=== PATIENT | male | born 1960 | race Two or more races ===

== ENCOUNTER 2022-03-30 00:06 | Inpatient (IN) | payer MEDICAID ==
[~2022-03-30] VITALS: Ht 170.2 cm; Wt 79.4 kg
--- NOTE | 2022-03-30 00:15 | NUR ---
RT NOTE PT BROUGHT IN BY FIRE DEPT FOR SOB. PT TRACH'D VIA SIZE 8 PORTEX CUFFED TRACH. PT PLACED ON [facility] VENT ON GIVEN SETTINGS. AC 16, 450, 50% +5. PT SX'D. NO RESP DISTRESS NOTED @ THIS TIME. Addendum: 03/30/22 at 0509 by NAWAF TYSON RT Amended: Links added.
[2022-03-30] MEDS ORDERED: IV NS 0.9% 1,000 ML BAG IV ONE (00:30)
--- NOTE | 2022-03-30 00:32 | NUR ---
TABBY FROM SNF TO ER BED 8. NON VERBAL, LORETTA DEPENDENT. NOT IS RESP DISTRESS. BROUGHT ON FOR LOW BP. REPORT REPORT, PT WAS NOTED WITH BP AT THE SNF OG 50/30. PT WAS REPORTED TO AHVE BEEN NOT DOING WELL. WHEN THE BP WAS NOTED GOING DOWN AN HOUR PRIOR TO ARRIVAL. PARAMEDICS GACE THE PATIENT A BOLUS OF 500MS AND EPI 0.1 MG IVP. MD WAS AT THE BEDSIDE FOR EVAL. ORDERS RECEIVED, NOTED AND CARRIED OUT
--- NOTE | 2022-03-30 01:04 | NUR ---
PATIENT TAKEN TO CT
--- NOTE | 2022-03-30 01:21 | NUR ---
PATIENT RETURNED FROM CT
[2022-03-30 01:26] LABS: BASOPHILS # (AUTO) 0.1 K/uL (0.0-0.2); BASOPHILS % (AUTO) 0.3 % (0.0-2.0); EOSINOPHILS % (AUTO) 0.1 % (0.0-6.0); HEMATOCRIT 28 % (39-51); LYMPHOCYTES # (AUTO) 1.7 K/uL (0.8-4.8); LYMPHOCYTES % (AUTO) 6.3 % (20.0-44.0); MEAN CORPUSCULAR HGB CONC 33 g/dl (31.0-36.0); MEAN CORPUSCULAR VOLUME 97 fL (80-96); MONOCYTES # (AUTO) 2.1 K/uL (0.1-1.30); MONOCYTES % (AUTO) 7.7 % (2.0-12.0); NEUTROPHILS # (AUTO) 23.3 K/uL (1.8-8.9); NEUTROPHILS % (AUTO) 85.6 % (43.0-81.0); PLATELET COUNT (AUTO) 391 K/uL (150-450); RED BLOOD CELL COUNT(AUTO) 2.88 MIL/uL (4.5-6.0); WHITE BLOOD COUNT (AUTO) 27.2 K/uL (4.3-11.0)
[2022-03-30 01:37] LABS: CALCIUM, SERUM 9.3 mg/dL (8.5-10.1); CARBON DIOXIDE 27 mmol/L (21-32); CHLORIDE 101 mmol/L (98-107); GLUCOSE 138 mg/dL (74-106); POTASSIUM 4.5 mmol/L (3.5-5.1); SODIUM SERUM 138 mmol/L (136-145); UREA NITROGEN, BLOOD 52 mg/dL (7-18)
[2022-03-30 01:44] LABS: ALANINE AMINOTRANSFERASE 53 U/L (12-78); ALBUMIN 2.7 g/dL (3.4-5.0); ALKALINE PHOSPHATASE 86 U/L (46-116); ASPARTATE AMINOTRANSFERASE 38 U/L (15-37); BILIRUBIN,DIRECT 0.2 mg/dL (0.0-0.2); BILIRUBIN,TOTAL 0.7 mg/dL (0.2-1.0); TOTAL PROTEIN, SERUM 7.5 g/dL (6.4-8.2)
[2022-03-30] MEDS ORDERED: ACETAMINOPHEN 650 MG/20.3 ML UDC ONE (01:50)
[2022-03-30] MEDS ORDERED: ACETAMINOPHEN ES 500 MG TABLET ONE (01:53)
[2022-03-30] MEDS ORDERED: ACETAMINOPHEN ES 500 MG TABLET GT ONE (02:00)
[2022-03-30] MEDS ORDERED: Z GUARD REMEDY 4 OZ OINT TP PRN (02:30)
[2022-03-30] MEDS ORDERED: ONDANSETRON HCL/PF 4 MG/2 ML VIAL IVP PRN (02:30)
[2022-03-30] MEDS ORDERED: DEXTROSE 50%-WATER 50 ML DISP.SYRIN IV PRN (02:30)
[2022-03-30] MEDS ORDERED: ACETAMINOPHEN 650 MG/SUPP.RECT RC PRN (02:30)
[2022-03-30] MEDS: IV LR 1000 ML 1,000 ML IV PRN (02:48)
[2022-03-30] MEDS ORDERED: CEFEPIME 1 GM in IV D5W 50 ML IV ONE (03:30)
[2022-03-30] MEDS ORDERED: ZOSYN IVPB 3.375 G in IV D5W 50ml IV ONE (03:30)
[2022-03-30] MEDS ORDERED: VANCOMYCIN 1 GM in IV D5W 250 ML IV ONE (03:30)
[2022-03-30] MEDS ORDERED: VANCOMYCIN 1.75 GM in IV D5W 500 ML IV ONE (03:30)
[2022-03-30] MEDS ORDERED: VANCOMYCIN 1 GM VIAL ONE (03:34)
[2022-03-30] MEDS ORDERED: CEFEPIME 1 GM VIAL ONE (03:34)
[2022-03-30 04:41] LABS: BILIRUBIN,URINE SMALL (NEGATIVE); LEUKOCYTE ESTERASE ,URINE LARGE (NEGATIVE); NITRITE, URINE POSITIVE (NEGATIVE); PROTEIN,URINE >=300 mg/dl (NEGATIVE); UGLUCOSE NEGATIVE (NEGATIVE); UROBILINOGEN,URINE 0.2 EU/dL (0.2)
[2022-03-30 04:42] LABS: COLOR,URINE RED (YELLOW)
[2022-03-30] MEDS ORDERED: PIPERACILLIN /TAZOBACTAM 3.375 G VIAL IV ONE (05:47)
[2022-03-30 06:02] LABS: BASOPHILS # (AUTO) 0.1 K/uL (0.0-0.2); BASOPHILS % (AUTO) 0.2 % (0.0-2.0); EOSINOPHILS % (AUTO) 0.1 % (0.0-6.0); HEMATOCRIT 27 % (39-51); HEMOGLOBIN 8.5 g/dL (13.5-17.5); LYMPHOCYTES # (AUTO) 1.9 K/uL (0.8-4.8); LYMPHOCYTES % (AUTO) 5.4 % (20.0-44.0); MEAN CORPUSCULAR HGB CONC 32 g/dl (31.0-36.0); MEAN CORPUSCULAR VOLUME 98 fL (80-96); MONOCYTES # (AUTO) 1.9 K/uL (0.1-1.30); MONOCYTES % (AUTO) 5.4 % (2.0-12.0); NEUTROPHILS # (AUTO) 30.9 K/uL (1.8-8.9); NEUTROPHILS % (AUTO) 88.9 % (43.0-81.0); PLATELET COUNT (AUTO) 302 K/uL (150-450); RED BLOOD CELL COUNT(AUTO) 2.73 MIL/uL (4.5-6.0)
[2022-03-30 06:16] LABS: WHITE BLOOD COUNT (AUTO) 34.7 K/uL (4.3-11.0)
[2022-03-30 06:37] LABS: CALCIUM, SERUM 8.6 mg/dL (8.5-10.1); MAGNESIUM 2.2 mg/dL (1.8-2.4); POTASSIUM 4.3 mmol/L (3.5-5.1)
[2022-03-30] MEDS: BLOOD SUGAR DIAGNOSTIC 1 EACH STRIP IN SCH ×4 (06:44→23:48)
[2022-03-30 07:15] LABS: BACTERIA,URINE Many /HPF (None Seen); RBC,URINE TOO NUMEROUS TO COUN /HPF (0-2); SQUAMOUS EPITHELIAL CELL,UR Rare /HPF (None Seen); WBC,URINE TOO NUMEROUS TO COUN /HPF (0-3)
[2022-03-30 07:25] LABS: LYMPHOCYTES % (MANUAL) 7 % (16-48); MONOCYTES % (MANUAL) 6 % (0-11.0); NEUTROPHILS % (MANUAL) 87 (42-76)
--- NOTE | 2022-03-30 07:37 | NUR ---
going to 112.2
[2022-03-30 08:00] VITALS: BP 94/65
--- NOTE | 2022-03-30 08:00 | NUR ---
RT Patient received on vent: AC 16 450 40% +5. Transported to [facility] room #115. Trach secure and patent. Suction tolerated well. Ambu bag and back up trach at bedside. Vent plugged into red outlet. Alarms on and audible. No SOB or respiratory distress noted at this time.
--- NOTE | 2022-03-30 08:04 | NUR ---
REPORT GIVEN TO ANAYELI CHARGE NURSE. AWAITING TRANSFER TO FLOOR.
[2022-03-30] MEDS ORDERED: IPRA4AER IH ×2 (08:51)
[2022-03-30] MEDS ORDERED: INSU100V30 SQ (08:51)
[2022-03-30] MEDS ORDERED: NA P133E RC (08:51)
[2022-03-30] MEDS ORDERED: ACET-868 GT (08:51)
[2022-03-30] MEDS ORDERED: MAGN400O6 GT (08:51)
[2022-03-30] MEDS ORDERED: ACET-2605 GT (08:51)
[2022-03-30] MEDS ORDERED: LABE100T5 GT (08:51)
[2022-03-30] MEDS ORDERED: NUT.237L31 GT (08:51)
[2022-03-30] MEDS ORDERED: LEVE500T9 GT (08:51)
[2022-03-30] MEDS ORDERED: INSU100V7 SQ (08:51)
[2022-03-30] MEDS ORDERED: CLON0.1T GT (08:51)
[2022-03-30] MEDS ORDERED: FOLI0.8T23 GT (08:51)
[2022-03-30] MEDS ORDERED: BISA10SU11 RC (08:51)
[2022-03-30] MEDS ORDERED: HYDR100T27 GT (08:51)
[2022-03-30] MEDS ORDERED: ATOR40TA GT (08:51)
[2022-03-30] MEDS ORDERED: CHLO473M5 MM (08:51)
[2022-03-30] MEDS: PANTOPRAZOLE 40 MG/PACK PACK GT SCH (10:06)
[2022-03-30] MEDS: HEPARIN SODIUM, PORCINE 5000 UNITS/1 ML VIAL SQ SCH ×2 (10:07→21:18)
[2022-03-30] MEDS ORDERED: IV NS 0.9% 1,000 ML IV STA ×2 (11:30→18:17)
[2022-03-30 12:00] VITALS: BP 94/65
[2022-03-30] MEDS: PIPERACILLIN /TAZOBACTAM 3.375 G in IV D5W 100 ML IV SCH ×2 (13:31→20:05)
[2022-03-30 16:20] VITALS: BP_SYST 110; BP_SYST 94; BP_DIAS 65; BP_DIAS 68
--- NOTE | 2022-03-30 17:59 | NUR ---
PATIENT FOUND WITH TRACH INTACT ON THE VENT. PATIENT REMAIN STABLE W/O DISTRESS. BACK UP TRACH AND PULSE OXIMETER BY THE BEDSIDE. Addendum: 03/30/22 at 1802 by JAE WALKER RT Amended: Links added.
[2022-03-30] MEDS ORDERED: Medication Not On Formulary EA (Ipratropium/Albuterol Sulfate (Combivent Respimat 20-100 IH PRN (18:30)
[2022-03-30] MEDS ORDERED: GLUCERNA 1.5 1,000 ML BOTTLE GT SCH (18:30)
[2022-03-30] MEDS ORDERED: GLUCERNA 1.5 1,000 ML BOTTLE NG PRN (18:30)
[2022-03-30] MEDS ORDERED: BISACODYL SUPP (10 MG) 10 MG/SUPP.RECT SUPP.RECT RC PRN (18:30)
--- NOTE | 2022-03-30 19:15 | NUR ---
RN OPENING NOTES RECEIVED PATIENT ON BED, OBTUNDED, NON VERBAL. ON MECHANICAL VENTILATION WITH SETTINGS AC-16, TIDAL VOLUME-450. FIO2-40%, PEEP-5 SATING AT 100%. RESPIRATORY EVEN AND UNLABORED, NO SOB NOTED. NOTED WITH TEMPERATURE 100.0 F DEGREES, COOLING MEASURE PROVIDED, ACETAMINOPHEN 650MG VIA GT GIVEN. NO S/S OF DISTRESS NOTED. PATIENT LAC#20 AND RAC #18 PERIPHERAL LINE, FLUSHED WITH NS, NO S/S OF INFILTRATION NOTED AT SITE. WITH ONGOING BOLUS OF NS, TOLERATED WELL, WITH IVF OF LR @ 100ML/HR. DANIEL CATHETER DRAINING WITH CLOUDY YELLOW URINE OUTPUT VIA GRAVITY. ALL SAFETY MEASURE PROVIDED. BED IN LOWEST POSITION, LOCKED. BED ALARM ARMED. CONTINUE TO MONITOR.
[2022-03-30 20:00] VITALS: BP 92/53
[2022-03-30] MEDS ORDERED: ALBUTEROL FS 2.5 MG/0.5 ML VIAL.NEB NEB PRN (20:00)
[2022-03-30] MEDS ORDERED: IPRATROPIUM NEB FS 0.5 MG/2.5 ML AMPUL.NEB IH PRN (20:00)
--- NOTE | 2022-03-30 20:30 | NUR ---
Patient received on vent: AC 16 450 40% +5. Trach secure and patent. Suction tolerated well. Ambu bag and back up trach at bedside. Vent plugged into red outlet. Alarms on and audible. SLIGHT RESP DISTRESS WITH 30 RR. HR 124. SPO2 100%. Addendum: 03/30/22 at 2030 by Rony Barba RT Amended: Links added.
[2022-03-30] MEDS: ACETAMINOPHEN 325 MG TABLET PO PRN (20:42)
[2022-03-30] MEDS: IV NS 0.9% 250 ML IV PRN (20:54)
--- NOTE | 2022-03-30 21:00 | NUR ---
RN NOTES PER DOCTOR OF [place]APR[place] JAMES URIOSTEGUI TO CHANGED THE GLUCERNA 1.5 TO GLUCERNA 1.2.
[2022-03-30] MEDS: LEVETIRACETAM SOL (5 ML) 100 MG/ML UDC GT SCH (21:16)
[2022-03-30] MEDS: ATORVASTATIN 40 MG TABLET GT SCH (21:16)
[2022-03-30] MEDS ORDERED: INSULIN GLARGINE, 100 UNIT/ML CARTRIDGE SQ ONE (21:22)
--- NOTE | 2022-03-30 21:35 | NUR ---
RN NOTES NOTIFIED SOFTWARE DEVELOPER MANAGER JUANCARLOS BOWERS REGARDING PATIENT LATEST LACTIC ACID-3.2, PER JOI BOWERS NO NEW ORDER.
[2022-03-30] MEDS: INSULIN GLARGINE, 100 UNIT/ML CARTRIDGE SQ SCH (21:47)
--- NOTE | 2022-03-30 21:48 | NUR ---
RN NOTES INSULIN LANTUS 15 UNITS NOT GIVEN, NOTED WITH BLOOD SUGAR 77 mg/dL, NO S/S OF HYPOGLYCEMIA NOTED. CONTINUE TO MONITOR
[2022-03-30] MEDS ORDERED: MEROPENEM 500 MG VIAL IV ONE (21:59)
[2022-03-30] MEDS ORDERED: MAGNESIUM HYDROXIDE 30 ML UDC GT PRN (22:00)
[2022-03-30] MEDS: MEROPENEM 500 MG in IV NS 0.9% 50 ML IV SCH (22:01)
[2022-03-30] MEDS: METRONIDAZOLE 500 MG TABLET PO SCH (22:07)
[2022-03-30] MEDS: INSULIN REGULAR, HUMAN 100 UNIT/ML 3 ML VIAL SQ PRN (23:49)
--- NOTE | 2022-03-30 23:49 | NUR ---
RN NOTES BLOOD SUGAR 85mg/dL, NO INSULIN COVERAGE PER SLIDING SCALE, NO S/S OF HYPOGLYCEMIA NOTED.
[2022-03-31] VITALS (11 sets, daily range): BP systolic 100–162; BP diastolic 50–93
[2022-03-31] MEDS ORDERED: Medication Not On Formulary EA (Ipratropium/Albuterol Sulfate (Combivent Respimat 20-100 IH SCH
[2022-03-31] MEDS: IV LR 1000 ML 1,000 ML IV PRN ×2 (01:05→12:27)
[2022-03-31] MEDS: IPRATROPIUM NEB FS 0.5 MG/2.5 ML AMPUL.NEB IH SCH ×4 (02:13→20:21)
[2022-03-31] MEDS: ALBUTEROL FS 2.5 MG/0.5 ML VIAL.NEB NEB SCH ×4 (02:13→20:21)
[2022-03-31] MEDS: METRONIDAZOLE 500 MG TABLET PO SCH ×3 (04:49→20:09)
[2022-03-31] MEDS: BLOOD SUGAR DIAGNOSTIC 1 EACH STRIP IN SCH ×4 (05:32→23:01)
[2022-03-31] MEDS: INSULIN REGULAR, HUMAN 100 UNIT/ML 3 ML VIAL SQ PRN ×2 (05:33→23:02)
--- NOTE | 2022-03-31 05:34 | NUR ---
RN NOTES BLOOD SUGAR 110mg/dL, NO INSULIN COVERAGE PER SLIDING SCALE, NO S/S OF HYPOGLYCEMIA NOTED.
[2022-03-31] MEDS ORDERED: VANCOMYCIN 1.25 GM in IV D5W 250 ML IV SCH (06:00)
[2022-03-31] MEDS ORDERED: VANCOMYCIN 1 GM in IV D5W 250ml IV SCH (06:00)
[2022-03-31 06:03] LABS: BILIRUBIN,URINE NEGATIVE (NEGATIVE); COLOR,URINE YELLOW (YELLOW); LEUKOCYTE ESTERASE ,URINE SMALL (NEGATIVE); NITRITE, URINE NEGATIVE (NEGATIVE); PROTEIN,URINE >=300 mg/dl (NEGATIVE); UGLUCOSE NEGATIVE (NEGATIVE); UROBILINOGEN,URINE 0.2 EU/dL (0.2)
[2022-03-31 06:10] LABS: BACTERIA,URINE Moderate /HPF (None Seen); RBC,URINE TOO NUMEROUS TO COUN /HPF (0-2); SQUAMOUS EPITHELIAL CELL,UR None Seen /HPF (None Seen); WBC,URINE 51-80 /HPF (0-3)
[2022-03-31 06:55] LABS: CREATININE, URINE 62.8 MG/DL (30.0-125.0)
--- NOTE | 2022-03-31 07:08 | NUR ---
RN NOTES NO SIGNIFICANT CHANGES THROUGH OUT THE SHIFT. ON MECHANICAL VENTILATION WITH SETTINGS TOLERATED WELL. RESPIRATORY EVEN AND UNLABORED, NO SOB NOTED. AFEBRILE. NO S/S OF DISTRESS NOTED. WITH IVF OF LR @ 100ML/HR. GTUBE PATENT INTACT, VERIFIED PLACEMENT BY AUSCULTATION, NO RESIDUAL NOTED UPON ASPIRATION, RUNNING WITH GLUCERNA 1.2 @ 60 ML/HR. DANIEL CATHETER DRAINING WITH CLOUDY YELLOW URINE OUTPUT VIA GRAVITY. ALL DUE MEDS GIVEN. ALL SAFETY MEASURE PROVIDED. BED IN LOWEST POSITION, LOCKED. BED ALARM ARMED. REPORT GIVEN TO MORNING SHIFT NURSE FOR CONTINUITY OF CARE.
--- NOTE | 2022-03-31 07:15 | NUR ---
RN OPENING NOTES: RECEIVED PATIENT IN BED, SLEEPING COMFORTABLY, PATIENT OBTUNDED. ON MECHANICAL VENT WITH SETTING AC # 16 TIDAL VOLUME 450 FI02 40 AND PEEP 5. BREATHING UNLABORED AND REGULAR, NO S/S OF SOB, NO RESPIRATORY DISTRESS NOTED. ON SR WITH HR OF 97. IV SITE ON LFA RUNNING WITH LR @ 100 ML/HR. NO S.S OF INFILTRATION NOTED ON THE SITE. GT WITH CONTINUOUS FEEDING OF GLUCERNA 1.2 @ 60 ML/HR, NO RESIDUAL, WITH POSITIVE PLACEMENT NOTED, GT DRESSING CLEAN, DRY AND INTACT. NO S/S OF PAIN OR DISCOMFORT AT THIS TIME. SAFETY MEASURES IN PLACE. HOB ELEVATED AT 30 DEGREES, BED LOCKED AND IN LOWEST POSITION, SR UP ,CALL LIGHT WITHIN REACH. WILL CONTINUE TO MONITOR PATIENT THROUGHOUT SHIFT.
[2022-03-31 08:17] LABS: CALCIUM, SERUM 8.3 mg/dL (8.5-10.1); CREATININE 2.8 mg/dL (0.6-1.3); MAGNESIUM 2.3 mg/dL (1.8-2.4); PHOSPHORUS 3.9 mg/dL (2.5-4.9); POTASSIUM 4.5 mmol/L (3.5-5.1)
[2022-03-31 08:29] LABS: BASOPHILS # (AUTO) 0.1 K/uL (0.0-0.2); BASOPHILS % (AUTO) 0.2 % (0.0-2.0); EOSINOPHILS % (AUTO) 0.7 % (0.0-6.0); HEMATOCRIT 21 % (39-51); LYMPHOCYTES # (AUTO) 1.3 K/uL (0.8-4.8); LYMPHOCYTES % (AUTO) 4.2 % (20.0-44.0); MEAN CORPUSCULAR HGB CONC 33 g/dl (31.0-36.0); MEAN CORPUSCULAR VOLUME 96 fL (80-96); MONOCYTES # (AUTO) 0.9 K/uL (0.1-1.30); MONOCYTES % (AUTO) 2.8 % (2.0-12.0); NEUTROPHILS # (AUTO) 29.8 K/uL (1.8-8.9); NEUTROPHILS % (AUTO) 92.1 % (43.0-81.0); PLATELET COUNT (AUTO) 203 K/uL (150-450); RED BLOOD CELL COUNT(AUTO) 2.21 MIL/uL (4.5-6.0)
[2022-03-31 08:33] LABS: HEMOGLOBIN 6.9 g/dL (13.5-17.5); WHITE BLOOD COUNT (AUTO) 32.4 K/uL (4.3-11.0)
--- NOTE | 2022-03-31 08:49 | NUR ---
RECEIVED CRITICAL RESULT OF HGB 6.9 FROM 8.5 YESTERDAY, WBC OF 32.4 FROM 34.7 YESTERDAY HCT 29, FROM 27 YESTERDAY . JOI WADDELL INFORMED , AWAITING ORDERS
--- NOTE | 2022-03-31 08:57 | NUR ---
RECEIVED ORDERS FROM PREPARED FOODS PRODUCTION TEAM MEMBER, NOTED AND CARRIED OUT.
[2022-03-31] MEDS: HEPARIN SODIUM, PORCINE 5000 UNITS/1 ML VIAL SQ SCH ×2 (09:00→20:12)
[2022-03-31] MEDS: LEVETIRACETAM SOL (5 ML) 100 MG/ML UDC GT SCH ×2 (09:01→20:09)
[2022-03-31] MEDS: PANTOPRAZOLE 40 MG/PACK PACK GT SCH (09:01)
[2022-03-31] MEDS: CHLORHEXIDINE GLUCONATE 15 ML UDC MM SCH ×2 (09:01→17:25)
[2022-03-31] MEDS: MEROPENEM 500 MG in IV NS 0.9% 50 ML IV SCH ×2 (09:21→22:38)
--- NOTE | 2022-03-31 12:04 | NUR ---
BLOOD SUGAR CHECKED, 116 MG/DL, NO COVERAGE FOR INSULIN NEEDED
[2022-03-31] MEDS: ACETAMINOPHEN 325 MG TABLET PO PRN (12:32)
[2022-03-31] MEDS: VIT B CMPLX 3/FA/VIT C/BIOTIN 1 TAB TABLET GT SCH (17:25)
[2022-03-31] MEDS: GLUCERNA 1.2 1,000 ML BOTTLE GT PRN (17:28)
--- NOTE | 2022-03-31 18:44 | NUR ---
RN CLOSING NOTES; PATIENT IN BED ASLEEP, OBTUNDED. NO S/S OF RESPIRATORY DISTRESS. CONTINUES ON MECHANICAL VENT WITH SETTING AC # 16 TIDAL VOLUME 450 FI02 40 AND PEEP 5. NO SOB NOTED. BREATHING REGULAR AND UNLABORED. ON ST WITH HR OF 111. PATIENT JUST FINISHED HIS BLOOD TRANSFUSION, NO REACTION NOTED, NO S/S OF PAIN OR DISCOMFORT. IV SITE ON LFA RUNNING WITH LR @ 100 ML/HR. NO S.S OF INFILTRATION NOTED ON THE SITE. GT INTACT, DRESSING CHANGED, CLEAN AND DRY WITH CONTINUOUS FEEDING OF GLUCERNA 1.2 @ 60 ML/HR, NO RESIDUAL, AND FLUSH WITH WATER. HOB ELEVATED AT 30 DEGREES, BED LOCKED AND IN LOWEST POSITION. SAFETY MEASURES IN PLACE, CALL LIGHT WITHIN REACH. WILL ENDORSE TO NEXT SHIFT NURSE FOR ANKUR.
[2022-03-31] MEDS ORDERED: MEROPENEM 500 MG in IV NS 0.9% 50 ML IV SCH (18:59)
[2022-03-31] MEDS: ACETAMINOPHEN ES 500 MG TABLET GT PRN (20:10)
[2022-03-31] MEDS: IV LR 1000 ML 1,000 ML IV SCH (20:42)
[2022-03-31] MEDS: ATORVASTATIN 40 MG TABLET GT SCH (22:39)
[2022-03-31] MEDS: INSULIN GLARGINE, 100 UNIT/ML CARTRIDGE SQ SCH (22:43)
[2022-04-01] VITALS (7 sets, daily range): BP systolic 146–200; BP diastolic 87–107
[2022-04-01] MEDS: IPRATROPIUM NEB FS 0.5 MG/2.5 ML AMPUL.NEB IH SCH ×4 (01:37→20:22)
[2022-04-01] MEDS: ALBUTEROL FS 2.5 MG/0.5 ML VIAL.NEB NEB SCH ×4 (01:38→20:22)
[2022-04-01] MEDS: METRONIDAZOLE 500 MG TABLET PO SCH ×3 (04:47→21:51)
[2022-04-01] MEDS: BLOOD SUGAR DIAGNOSTIC 1 EACH STRIP IN SCH ×3 (05:36→18:00)
[2022-04-01] MEDS: INSULIN REGULAR, HUMAN 100 UNIT/ML 3 ML VIAL SQ PRN (05:37)
[2022-04-01] MEDS: IV LR 1000 ML 1,000 ML IV SCH ×2 (05:38→17:11)
--- NOTE | 2022-04-01 06:40 | NUR ---
END OF SHIFT REPORT, PATIENT IN BED ASLEEP, OBTUNDED, ON MECHANICAL VENTILATOR, TOLERATED SETTINGS WELL, NO S/S OF RESPIRATORY DISTRESS, AFEBRILE LAST NIGHT 101.0 BODY TEMPERATURE, SINUS TACHY MOST OF THE TIME, HR 90S AT THIS TIME, AFEBRILE, S/P BLOOD TRANSFUSION YESTERDAY, NO REACTION NOTED, PERIPHERAL IV LINE LFA LR @ 100 ML/HR INFUSING WELL AND PT TOLERATED WELL, GT IN PLACE, INTACT, GLUCERNA 1.2 @ 60 ML/HR, INFUSING NO RESIDUA NOTED, F/C IN PLACE WITH YELLOW URINE DRAINING BY GRAVITY, HOB ELEVATED AT 30 DEGREES, FOR ASPIRATION PRECAUTIONS, BED LOCKED AND IN LOWEST POSITION, SAFETY MEASURES IN PLACE, WILL ENDORSE CONTINUITY OF CARE TO ONCOMING NURSE.
[2022-04-01 06:47] LABS: BASOPHILS % (AUTO) 0.1 % (0.0-2.0); EOSINOPHILS % (AUTO) 1.3 % (0.0-6.0); HEMATOCRIT 23 % (39-51); HEMOGLOBIN 7.5 g/dL (13.5-17.5); LYMPHOCYTES # (AUTO) 1.2 K/uL (0.8-4.8); LYMPHOCYTES % (AUTO) 5.2 % (20.0-44.0); MEAN CORPUSCULAR HGB CONC 33 g/dl (31.0-36.0); MEAN CORPUSCULAR VOLUME 94 fL (80-96); MONOCYTES # (AUTO) 0.8 K/uL (0.1-1.30); MONOCYTES % (AUTO) 3.6 % (2.0-12.0); NEUTROPHILS # (AUTO) 21.5 K/uL (1.8-8.9); NEUTROPHILS % (AUTO) 89.8 % (43.0-81.0); PLATELET COUNT (AUTO) 183 K/uL (150-450); RED BLOOD CELL COUNT(AUTO) 2.43 MIL/uL (4.5-6.0); WHITE BLOOD COUNT (AUTO) 23.9 K/uL (4.3-11.0)
[2022-04-01 07:09] LABS: CREATININE 2.7 mg/dL (0.6-1.3); MAGNESIUM 2.1 mg/dL (1.8-2.4); PHOSPHORUS 3.4 mg/dL (2.5-4.9); POTASSIUM 4.3 mmol/L (3.5-5.1)
--- NOTE | 2022-04-01 07:30 | NUR ---
RE/T-[facility] OPENING NOTE PATIENT ASLEEP A&OX0. OBTUNDED. ST, PATIENT SATTING AT 100% ON VENT RATE 16, TV 450, FIO2 40% PEEP 5. DIET GLUCERNIA @ 60 MLS/HR 0 RESIDUAL. IV L AC PATENT, INTACT AND FLUSHED WITH NS. ALL SAFETY FALL PRECAUTIONS IN PLACE BED IN LOWEST POSITION, BED LOCK ON, BED ALARM ON, SIDE RAILS UP, CALL LIGHT WITHIN REACH. WILL CONTINUE TO MONITOR.
[2022-04-01] MEDS: PANTOPRAZOLE 40 MG/PACK PACK GT SCH (08:34)
[2022-04-01] MEDS: LEVETIRACETAM SOL (5 ML) 100 MG/ML UDC GT SCH ×2 (08:34→21:51)
--- NOTE | 2022-04-01 08:43 | NUR ---
RN/TDOU NOTE MEDICATION HEPARIN 5,000 UNITS HELD DUE TO HEMIGLOBIN 6.9.
[2022-04-01] MEDS: CHLORHEXIDINE GLUCONATE 15 ML UDC MM SCH ×2 (08:55→17:11)
[2022-04-01] MEDS: HEPARIN SODIUM, PORCINE 5000 UNITS/1 ML VIAL SQ SCH ×2 (08:55→21:52)
[2022-04-01 09:13] LABS: BASOPHILS % (MANUAL) 0 % (0.0-2.0); EOSINOPHILS % (MANUAL) 1 % (0-4); LYMPHOCYTES % (MANUAL) 5 % (16-48); MONOCYTES % (MANUAL) 4 % (0-11.0); NEUTROPHILS % (MANUAL) 90 (42-76)
[2022-04-01] MEDS: MEROPENEM 500 MG in IV NS 0.9% 50 ML IV SCH ×2 (09:36→22:35)
[2022-04-01] MEDS ORDERED: IV NS 0.9% 1,000 ML IV ONE (10:00)
[2022-04-01] MEDS: ACETAMINOPHEN 325 MG TABLET PO PRN ×2 (13:42→19:42)
[2022-04-01] MEDS: VIT B CMPLX 3/FA/VIT C/BIOTIN 1 TAB TABLET GT SCH (19:41)
--- NOTE | 2022-04-01 19:50 | NUR ---
RN CLOSING NOTE CARE ENDORSED TO APPOINTMENT SPECIALIST. ALL QUESTIONS ANSWERED.
[2022-04-01] MEDS: ACETAMINOPHEN ES 500 MG TABLET GT PRN (21:50)
[2022-04-01] MEDS: ATORVASTATIN 40 MG TABLET GT SCH (21:51)
--- NOTE | 2022-04-01 21:55 | NUR ---
noted patient with sbp>180, informed Patricia Murphy transportation modeler and replied with new order fro Hydralazine 10mg via GT q8hr for SBP>160, order noted and carried out.
[2022-04-01] MEDS: INSULIN GLARGINE, 100 UNIT/ML CARTRIDGE SQ SCH (22:35)
[2022-04-01] MEDS: hydrALAZINE HCL 10 MG TABLET GT PRN (22:46)
[2022-04-02] VITALS: BP 162/92
[2022-04-02] MEDS: BLOOD SUGAR DIAGNOSTIC 1 EACH STRIP IN SCH ×5 (00:34→23:46)
[2022-04-02] MEDS: INSULIN REGULAR, HUMAN 100 UNIT/ML 3 ML VIAL SQ PRN ×2 (00:34→05:31)
[2022-04-02] MEDS: IPRATROPIUM NEB FS 0.5 MG/2.5 ML AMPUL.NEB IH SCH ×4 (02:11→19:20)
[2022-04-02] MEDS: ALBUTEROL FS 2.5 MG/0.5 ML VIAL.NEB NEB SCH ×4 (02:11→19:20)
[2022-04-02] MEDS: IV LR 1000 ML 1,000 ML IV SCH ×3 (02:30→23:01)
[2022-04-02 04:00] VITALS: BP 151/78
[2022-04-02] MEDS: METRONIDAZOLE 500 MG TABLET PO SCH ×3 (05:30→21:14)
--- NOTE | 2022-04-02 07:05 | NUR ---
RN NOTES RECIEVED PT ON BED, VENT /TRACH DEPENDENT, OBTUNDED. TRACH CARE DONE, O2 SAT WNL, TOLERAING CURRENT VENT SETTING WELL, NO DISTRESS NOTED, TF, GLUCERNIA @ 60 MLS/HR 0 RESIDUAL. IV SITES , CLEAN, DRY AND INTACT, ALL SAFETY FALL PRECAUTIONS IN PLACE BED IN LOWEST POSITION, BED LOCK ON, BED ALARM ON, SIDE RAILS UPx3 CALL LIGHT WITHIN EASY REACH. WILL CONTINUE TO MONITOR.
--- NOTE | 2022-04-02 07:13 | NUR ---
END OF SHIFT REPORT, PATIENT IN BED OBTUNDED, ON MECHANICAL VENTILATOR, TOLERATED SETTINGS WELL, NO S/S OF RESPIRATORY DISTRESS, AFEBRILE LAST NIGHT 101.0 BODY TEMPERATURE, COOLING MEASURES AND TYLENOL GIVEN, STABILIZED FOR THE REST OF THE NIGHT, ALSO WITH EPISODE OF HIGH BLOOD PRESSURE, PRN ORDER FROM MD, AND ADMINISTERED AD ORDERED, AFTER THAT BLOOD PRESSURE OK, SINUS TACHY MOST OF THE TIME, HR 90S AT THIS TIME, AFEBRILE, S/P BLOOD TRANSFUSION YESTERDAY, NO REACTION NOTED, ADOLFO /PERIPHERAL IV LINE LFA LR @ 100 ML/HR INFUSING WELL AND PT TOLERATED WELL, GT IN PLACE, INTACT, GLUCERNA 1.2 @ 60 ML/HR, INFUSING NO RESIDUAL NOTED, F/C IN PLACE WITH YELLOW URINE DRAINING BY GRAVITY, HOB ELEVATED AT 30 DEGREES, FOR ASPIRATION PRECAUTIONS, BED LOCKED AND IN LOWEST POSITION, SAFETY MEASURES IN PLACE, ENDORSED TOO KADI RN FOR CONTINUITY OF CARE.
[2022-04-02 07:18] LABS: BASOPHILS % (AUTO) 0.2 % (0.0-2.0); EOSINOPHILS % (AUTO) 2.6 % (0.0-6.0); HEMATOCRIT 24 % (39-51); HEMOGLOBIN 7.7 g/dL (13.5-17.5); LYMPHOCYTES # (AUTO) 1.1 K/uL (0.8-4.8); LYMPHOCYTES % (AUTO) 8.1 % (20.0-44.0); MEAN CORPUSCULAR HGB CONC 33 g/dl (31.0-36.0); MEAN CORPUSCULAR VOLUME 95 fL (80-96); MONOCYTES # (AUTO) 0.9 K/uL (0.1-1.30); MONOCYTES % (AUTO) 7.1 % (2.0-12.0); NEUTROPHILS # (AUTO) 10.7 K/uL (1.8-8.9); PLATELET COUNT (AUTO) 157 K/uL (150-450); RED BLOOD CELL COUNT(AUTO) 2.49 MIL/uL (4.5-6.0); WHITE BLOOD COUNT (AUTO) 13.1 K/uL (4.3-11.0)
[2022-04-02 08:00] VITALS: BP 180/90
[2022-04-02 08:00] LABS: CALCIUM, SERUM 8.7 mg/dL (8.5-10.1); CREATININE 2.8 mg/dL (0.6-1.3); MAGNESIUM 2.1 mg/dL (1.8-2.4); PHOSPHORUS 3.8 mg/dL (2.5-4.9); POTASSIUM 4.6 mmol/L (3.5-5.1)
[2022-04-02] MEDS: PANTOPRAZOLE 40 MG/PACK PACK GT SCH (08:54)
[2022-04-02] MEDS: LEVETIRACETAM SOL (5 ML) 100 MG/ML UDC GT SCH ×2 (08:54→21:14)
[2022-04-02] MEDS: CHLORHEXIDINE GLUCONATE 15 ML UDC MM SCH ×2 (08:54→17:29)
[2022-04-02] MEDS: HEPARIN SODIUM, PORCINE 5000 UNITS/1 ML VIAL SQ SCH ×2 (08:56→21:21)
[2022-04-02] MEDS: MEROPENEM 500 MG in IV NS 0.9% 50 ML IV SCH (09:31)
[2022-04-02] MEDS: hydrALAZINE HCL 10 MG TABLET GT PRN (10:11)
[2022-04-02 12:00] VITALS: BP 175/98
--- NOTE | 2022-04-02 12:00 | NUR ---
RN NOTES DR HOLLOWAY NOTIFIED REGARDING HIGH BP . AWAITING FOR NEW ORDER . CONTINUE TO MONITOR.
[2022-04-02] MEDS: hydrALAZINE HCL 50 MG TABLET PO SCH ×2 (14:10→17:29)
[2022-04-02] MEDS: ACETAMINOPHEN ES 500 MG TABLET GT PRN (14:13)
[2022-04-02] MEDS: GLUCERNA 1.2 1,000 ML BOTTLE GT PRN (14:17)
[2022-04-02] MEDS: CEFTRIAXONE 2 G in IV D5W 100 ML IV SCH (14:25)
[2022-04-02 16:00] VITALS: BP 130/72
[2022-04-02] MEDS: VIT B CMPLX 3/FA/VIT C/BIOTIN 1 TAB TABLET GT SCH (17:31)
--- NOTE | 2022-04-02 18:30 | NUR ---
RN NOTES NO SIGNIFCANT CHANGES NOTED ON THIS SHIFT, TRACH CARE DONE, TOLERATING TF WELL, WILL ENDORSE TO BICYCLE II ASSEMBLER NURSE FOR CONTINUITY OF CARE
--- NOTE | 2022-04-02 19:30 | NUR ---
BOOK BINDER OPENING NOTES: RECEIVED PATIENT IN BED, SLEEPING COMFORTABLY, PATIENT OBTUNDED. ON MECHANICAL VENT WITH SETTING AC # 16 TIDAL VOLUME 450 FI02 40 AND PEEP 5. BREATHING EVEN AND UNLABORED, NO S/S OF SOB, NO RESPIRATORY DISTRESS NOTED. IV SITE ON LFA #20 AND ADOLFO ML RUNNING WITH LR @ 100 ML/HR. NO S.S OF INFILTRATION NOTED ON THE SITE. GT WITH CONTINUOUS FEEDING OF GLUCERNA 1.2 @ 60 ML/HR, NO RESIDUAL, WITH POSITIVE PLACEMENT NOTED, GT DRESSING CLEAN, DRY AND INTACT. NO S/S OF PAIN OR DISCOMFORT AT THIS TIME. SAFETY MEASURES IN PLACE. HOB ELEVATED AT 30 DEGREES, BED LOCKED AND IN LOWEST POSITION, SR UP, CALL LIGHT WITHIN REACH. FAMILY MEMBER AT BEDSIDE, WILL CONTINUE TO MONITOR PATIENT THROUGHOUT SHIFT.
[2022-04-02 20:00] VITALS: BP 144/87
[2022-04-02] MEDS: ATORVASTATIN 40 MG TABLET GT SCH (21:15)
[2022-04-02] MEDS: INSULIN GLARGINE, 100 UNIT/ML CARTRIDGE SQ SCH (23:45)
[2022-04-03] VITALS: BP 155/98
[2022-04-03] MEDS: ALBUTEROL FS 2.5 MG/0.5 ML VIAL.NEB NEB SCH ×4 (01:25→20:06)
[2022-04-03] MEDS: IPRATROPIUM NEB FS 0.5 MG/2.5 ML AMPUL.NEB IH SCH ×4 (01:25→20:06)
[2022-04-03 04:00] VITALS: BP 134/69
[2022-04-03] MEDS: METRONIDAZOLE 500 MG TABLET PO SCH ×3 (04:03→21:00)
--- NOTE | 2022-04-03 05:21 | NUR ---
RN NOTE BS CHECKED AT 109 MG/DL, NO COVERAGE GIVEN.
[2022-04-03] MEDS: BLOOD SUGAR DIAGNOSTIC 1 EACH STRIP IN SCH ×4 (05:26→23:30)
[2022-04-03] MEDS: GLUCERNA 1.2 1,000 ML BOTTLE GT PRN (05:26)
--- NOTE | 2022-04-03 06:33 | NUR ---
ROTOR ASSEMBLER CLOSING NOTES: PATIENT REMAINS IN BED SLEEPING, PT IS OBTUNDED. ON MECHANICAL VENT WITH SETTING AC# 16 TIDAL VOLUME 450 FI02 40 AND PEEP 5. BREATHING EVEN AND UNLABORED, NO S/S OF SOB, NO RESPIRATORY DISTRESS NOTED. IV SITE ON LFA #20 AND ADOLFO ML RUNNING WITH LR @ 100 ML/HR. NO S.S OF INFILTRATION NOTED ON THE SITE. GT WITH CONTINUOUS FEEDING OF GLUCERNA 1.2 @ 60 ML/HR, WITH POSITIVE PLACEMENT NOTED, GT DRESSING CLEAN, DRY AND INTACT. NO S/S OF PAIN OR DISCOMFORT AT THIS TIME. SAFETY MEASURES IN PLACE. ALL DUE MEDS GIVEN, KEPT DRY AND CLEAN. HOB ELEVATED AT 30 DEGREES, BED LOCKED AND IN LOWEST POSITION, SR UP, CALL LIGHT WITHIN REACH. WILL ENDORSE TO AM SHIFT NURSE.
--- NOTE | 2022-04-03 07:19 | NUR ---
RN OPEN NOTE AUTOMOTIVE DETAILER OPENING NOTES: RECEIVED PATIENT IN BED, SLEEPING COMFORTABLY, PATIENT OBTUNDED, NON RESPONSIVE ON MECHANICAL VENT WITH SETTING AC # 16 TIDAL VOLUME 450 FI02 40 AND PEEP 5. BREATHING EVEN AND UNLABORED, NO S/S OF SOB, NO RESPIRATORY DISTRESS NOTED.PATIENT HAS IV SITE ON LFA #20 AND ADOLFO ML RUNNING WITH LR @ 100 ML/HR. NO S.S OF INFILTRATION NOTED ON THE SITE. SKIN IS INTACT GT WITH CONTINUOUS FEEDING OF GLUCERNA 1.2 @ 60 ML/HR, NO RESIDUAL, , GT DRESSING CLEAN, DRY AND INTACT. NO S/S OF PAIN OR DISCOMFORT AT THIS TIME. SAFETY MEASURES IN PLACE. HOB ELEVATED AT 30 DEGREES, BED LOCKED AND IN LOWEST POSITION, BED SIFE RAILS ARE UP, CALL LIGHT WITHIN REACH. WILL CONTINUE FO FALLOW POC.
[2022-04-03] MEDS: IV LR 1000 ML 1,000 ML IV SCH ×2 (07:41→17:51)
[2022-04-03 08:00] VITALS: BP 134/69
[2022-04-03] MEDS: LEVETIRACETAM SOL (5 ML) 100 MG/ML UDC GT SCH ×2 (08:03→21:00)
[2022-04-03] MEDS: CHLORHEXIDINE GLUCONATE 15 ML UDC MM SCH ×2 (08:03→17:06)
[2022-04-03] MEDS: PANTOPRAZOLE 40 MG/PACK PACK GT SCH (08:03)
[2022-04-03] MEDS: hydrALAZINE HCL 50 MG TABLET PO SCH ×3 (08:12→17:14)
[2022-04-03] MEDS: HEPARIN SODIUM, PORCINE 5000 UNITS/1 ML VIAL SQ SCH ×2 (08:13→21:01)
[2022-04-03 12:00] VITALS: BP 132/62
[2022-04-03] MEDS: CEFTRIAXONE 2 G in IV D5W 100 ML IV SCH (13:54)
[2022-04-03 16:00] VITALS: BP 178/99
[2022-04-03] MEDS: ACETAMINOPHEN 325 MG TABLET PO PRN ×2 (17:06→19:53)
[2022-04-03] MEDS: VIT B CMPLX 3/FA/VIT C/BIOTIN 1 TAB TABLET GT SCH (17:37)
--- NOTE | 2022-04-03 18:35 | NUR ---
RN CLOSING NOTE PATIENT REMAINS IN BED , PT IS OBTUNDED. ON MECHANICAL VENT WITH SETTING AC# 16 TIDAL VOLUME 450 FI02 40 AND PEEP 5. BREATHING NON LABORED , HAS AND ADOLFO ML RUNNING WITH LR @ 100 ML/HR. NO S.S OF INFILTRATION NOTED ON THE SITE. GT WITH CONTINUOUS FEEDING OF GLUCERNA 1.2 @ 60 ML/HR, WITH POSITIVE PLACEMENT NOTED, GT DRESSING WAS CHANGED NO S/S OF PAIN OR DISCOMFORT AT THIS TIME. SAFETY MEASURES IN PLACE. ALL DUE MEDS GIVEN, KEPT DRY AND CLEAN. HOB ELEVATED AT 30 DEGREES, BED LOCKED AND IN LOWEST POSITION, SR UP, CALL LIGHT WITHIN REACH. WILL ENDORSE TO PM SHIFT NURSE.
[2022-04-03 20:00] VITALS: BP 166/95
--- NOTE | 2022-04-03 20:00 | NUR ---
SOFTWARE SUPPORT TECHNICIAN OPENING NOTES: RECEIVED PATIENT IN BED, COMFORTABLY, OBTUNDED,UNABLE TO MAKE NEEDS KNOWN. FEBRILE 100.1 COOLING MEASURES PROVIDED AND APPLIED TYLENOL 650MG VIA GT GIVEN ORDERED ALL DUE MEDS GIVEN ORDERED NO ASE NOTED , ON MECHANICAL VENT WITH SETTING AC # 16 TIDAL VOLUME 450 FI02 40 AND PEEP 5. BREATHING EVEN AND UNLABORED, NO S/S OF SOB, NO RESPIRATORY DISTRESS NOTED. IV SITE ON LAC#20 AND ADOLFO ML RUNNING WITH LR @ 100 ML/HR. NO S.S OF INFILTRATION NOTED ON THE SITE. GT WITH CONTINUOUS FEEDING OF GLUCERNA 1.2 @ 60 ML/HR, NO RESIDUAL, WITH POSITIVE PLACEMENT NOTED, GT DRESSING CLEAN, DRY AND INTACT. NO S/S OF PAIN OR DISCOMFORT AT THIS TIME. SAFETY MEASURES IN PLACE. HOB ELEVATED AT 30 DEGREES, BED LOCKED AND IN LOWEST POSITION, SR UP, CALL LIGHT WITHIN REACH. FAMILY MEMBER AT BEDSIDE, UPDATED WITH PTS CONDITION .WILL CONTINUE TO MONITOR PATIENT KEPT PTS CLEAN DRY AND COMFORTABLE.
[2022-04-03] MEDS: ATORVASTATIN 40 MG TABLET GT SCH (21:00)
[2022-04-03] MEDS: INSULIN REGULAR, HUMAN 100 UNIT/ML 3 ML VIAL SQ PRN (23:33)
[2022-04-03] MEDS: INSULIN GLARGINE, 100 UNIT/ML CARTRIDGE SQ SCH (23:35)
--- NOTE | 2022-04-03 23:36 | NUR ---
telecommunications switch technician notes blood sugar at 11pm is 106 mg/dl lantus 15 units given as ordered pts on gt feeding glucerna and lr at 100cc/hr will check bs again in am.
[2022-04-04] VITALS (7 sets, daily range): BP systolic 148–206; BP diastolic 69–100
[2022-04-04] MEDS: ALBUTEROL FS 2.5 MG/0.5 ML VIAL.NEB NEB SCH ×6 (01:26→19:44)
[2022-04-04] MEDS: IPRATROPIUM NEB FS 0.5 MG/2.5 ML AMPUL.NEB IH SCH ×4 (01:26→19:36)
[2022-04-04] MEDS: GLUCERNA 1.2 1,000 ML BOTTLE GT PRN (02:46)
[2022-04-04] MEDS: IV LR 1000 ML 1,000 ML IV SCH ×2 (04:57→14:30)
[2022-04-04] MEDS: METRONIDAZOLE 500 MG TABLET PO SCH ×3 (05:09→22:11)
[2022-04-04] MEDS: ACETAMINOPHEN 325 MG TABLET PO PRN ×2 (05:10→20:49)
[2022-04-04] MEDS: BLOOD SUGAR DIAGNOSTIC 1 EACH STRIP IN SCH ×4 (05:38→23:36)
--- NOTE | 2022-04-04 05:40 | NUR ---
answering service telephone operator notes Blood sugar for 6am is 108 mg/dl pts on gt feeding as ordered iv lr at 100cc/hr no coverage given per sliding scale.
--- NOTE | 2022-04-04 06:43 | NUR ---
SAMPLE TAKER OPERATOR CLOSING NOTES: PATIENT REMAINS ON MECHANICAL VENT WITH SETTING AC# 16 TIDAL VOLUME 450 FI02 40 AND PEEP 5. BREATHING EVEN AND UNLABORED, NO S/S OF SOB, NO RESPIRATORY DISTRESS NOTED. IV SITE ON LFA #20 AND ADOLFO ML RUNNING WITH LR @ 100 ML/HR. NO S.S OF INFILTRATION NOTED ON THE SITE. GT WITH CONTINUOUS FEEDING OF GLUCERNA 1.2 @ 60 ML/HR, WITH POSITIVE PLACEMENT NOTED, GT DRESSING CLEAN, DRY AND INTACT. AGAIN TEMP OF 100 TYLENOL 650MG VIA GT GIVEN ORDERED COLLING MEASURES APPLIED. SAFETY MEASURES IN PLACE KEPT DRY AND CLEAN. HOB ELEVATED AT 30 DEGREES, BED LOCKED AND IN LOWEST POSITION, SR UP, CALL LIGHT WITHIN REACH. WILL ENDORSE TO AM SHIFT FOR CONTINUITY OF CARE
[2022-04-04 07:49] LABS: BASOPHILS % (AUTO) 0.2 % (0.0-2.0); EOSINOPHILS % (AUTO) 2.1 % (0.0-6.0); HEMATOCRIT 22 % (39-51); HEMOGLOBIN 7.3 g/dL (13.5-17.5); LYMPHOCYTES # (AUTO) 1.5 K/uL (0.8-4.8); LYMPHOCYTES % (AUTO) 9.1 % (20.0-44.0); MEAN CORPUSCULAR HGB CONC 34 g/dl (31.0-36.0); MEAN CORPUSCULAR VOLUME 92 fL (80-96); MONOCYTES # (AUTO) 1.4 K/uL (0.1-1.30); MONOCYTES % (AUTO) 8.8 % (2.0-12.0); NEUTROPHILS # (AUTO) 13.1 K/uL (1.8-8.9); NEUTROPHILS % (AUTO) 79.8 % (43.0-81.0); PLATELET COUNT (AUTO) 179 K/uL (150-450); RED BLOOD CELL COUNT(AUTO) 2.33 MIL/uL (4.5-6.0); WHITE BLOOD COUNT (AUTO) 16.4 K/uL (4.3-11.0)
--- NOTE | 2022-04-04 07:55 | NUR ---
WOUND CARE CONSULT: PT PRESENTS WITH DISCOLORATION/OPEN AREAS TO SACRAL REGION WELL CIRCULAR LESIONS TO LOWER BUTTOCKS AND POSTERIOR THIGHS, UNKNOWN ETIOLOGY. DR ALEGRIA NOTIFIED OF SURGICAL CONSULT REQUEST. RECOMMENDATIONS MADE FOR SKIN PROTECTION. DISCUSSED WITH NURSING STAFF. FIRST STEP LOW AIRLOSS MATTRESS IS ON ORDER. MD IN AGREEMENT WITH PLAN OF CARE.
[2022-04-04] MEDS: LEVETIRACETAM SOL (5 ML) 100 MG/ML UDC GT SCH ×2 (08:47→22:11)
[2022-04-04] MEDS: hydrALAZINE HCL 50 MG TABLET PO SCH ×3 (08:47→17:33)
[2022-04-04] MEDS: CHLORHEXIDINE GLUCONATE 15 ML UDC MM SCH ×2 (08:47→18:31)
[2022-04-04] MEDS: HEPARIN SODIUM, PORCINE 5000 UNITS/1 ML VIAL SQ SCH ×2 (08:53→22:13)
[2022-04-04] MEDS: PANTOPRAZOLE 40 MG/PACK PACK GT SCH (08:54)
[2022-04-04 10:15] LABS: BAND % (MANUAL) 3 % (0.0-5.0); EOSINOPHILS % (MANUAL) 2 % (0-4); LYMPHOCYTES % (MANUAL) 10 % (16-48); MONOCYTES % (MANUAL) 3 % (0-11.0); NEUTROPHILS % (MANUAL) 77 (42-76)
[2022-04-04] MEDS: CEFTRIAXONE 2 G in IV D5W 100 ML IV SCH (14:17)
[2022-04-04] MEDS: VIT B CMPLX 3/FA/VIT C/BIOTIN 1 TAB TABLET GT SCH (18:31)
--- NOTE | 2022-04-04 18:58 | NUR ---
CLOSING NOTE: PATIENT HAD UNEVENT FULL SHIFT. PATIENT CHECKED ON HOURLY BY THE NURSE AND NURSE STAFF.
--- NOTE | 2022-04-04 19:30 | NUR ---
RN NOTE RECEIVED PATIENT IN BED, OBTUNDED, IN NO ACUTE DISTRESS AT THIS TIME. ON TRACH TO MECHANICAL VENT WITH SETTINGS PRESCRIBED: PORTEX #8, AC 18, TV 450, FIO2 40%, PEEP 5, SATURATION AT 94%, ST ON THE MONITOR, HR IS 132. NOTED IV SITE AT LAC 20G, AND ADOLFO MIDLINE, ALL HUBS PATENT AND FLUSHING WELL, NO S/S OF INFECTION OR INFILTRATION WITH LR INFUSING AT 100 ML/HR. NOTED GTUBE INTACT POSITIVE PLACEMENT NOTED, NO RESIDUAL, WITH TUBE FEEDING OF GLUCERNA AT 60 ML/HR. DANIEL CATHETER DRAINING TO A CLOUDY, YELLOW OUTPUT. SAFETY MEASURES IMPLEMENTED. PATIENT BED ALARM IS ON. HEAD OF BED ELEVATED. BED IS LOCKED, IN LOWEST POSITION AND SIDE RAILS UP. CALL LIGHT WITHIN REACH OF THE PATIENT. WILL CONTINUE TO MONITOR AND REASSESS FOR ANY CHANGES.
--- NOTE | 2022-04-04 19:36 | NUR ---
RT fio2 increased from 40% to 50% due to desaturation. pt saturation 90%. saturation post increase 93%. titration prn
--- NOTE | 2022-04-04 19:45 | NUR ---
RT albuterol not given due to high heart rate
[2022-04-04] MEDS: ATORVASTATIN 40 MG TABLET GT SCH (22:17)
[2022-04-04] MEDS: hydrALAZINE HCL IV 20 MG VIAL IV PRN (22:48)
[2022-04-04] MEDS: INSULIN GLARGINE, 100 UNIT/ML CARTRIDGE SQ SCH (23:25)
[2022-04-05] VITALS: BP 156/89
[2022-04-05] MEDS: ALBUTEROL FS 2.5 MG/0.5 ML VIAL.NEB NEB SCH ×4 (01:27→19:51)
[2022-04-05] MEDS: GLUCERNA 1.2 1,000 ML BOTTLE GT PRN ×2 (01:27→23:32)
[2022-04-05] MEDS: IPRATROPIUM NEB FS 0.5 MG/2.5 ML AMPUL.NEB IH SCH ×4 (01:27→19:51)
[2022-04-05] MEDS: IV LR 1000 ML 1,000 ML IV SCH ×3 (01:30→21:22)
[2022-04-05 04:00] VITALS: BP 144/91
[2022-04-05] MEDS: METRONIDAZOLE 500 MG TABLET PO SCH ×3 (05:18→21:22)
[2022-04-05] MEDS: BLOOD SUGAR DIAGNOSTIC 1 EACH STRIP IN SCH ×4 (05:57→23:19)
--- NOTE | 2022-04-05 08:00 | NUR ---
ICU/RN PT IS CHRONIC TRACH ON THE VENT ,AC MODE,FIO2-40%,SAT O2-100%. T-101.1.TYLENOL VIA G-TUBE GIVEN.G-TUBE INFUSING WITH GLUCERNA,NO RESIDUAL NOTED.GENERALIZED EDEMA PRESENT,F/C DRAINING WITH YELLOW URINE.LOWER BACK COVERED WITH DRESSING .SUCTION PROVIDED.REPOSITION FOR COMFORT.LABS REVIEW. NOTIFIED.
[2022-04-05] MEDS: CEFEPIME 1 GM in IV D5W 50 ML IV SCH ×2 (08:30→21:22)
[2022-04-05] MEDS: CHLORHEXIDINE GLUCONATE 15 ML UDC MM SCH ×2 (08:31→16:49)
[2022-04-05] MEDS: PANTOPRAZOLE 40 MG/PACK PACK GT SCH (08:31)
[2022-04-05] MEDS: LEVETIRACETAM SOL (5 ML) 100 MG/ML UDC GT SCH ×2 (08:31→21:21)
[2022-04-05 09:21] LABS: BASOPHILS % (AUTO) 0.2 % (0.0-2.0); EOSINOPHILS % (AUTO) 1.8 % (0.0-6.0); HEMATOCRIT 22 % (39-51); HEMOGLOBIN 7.3 g/dL (13.5-17.5); LYMPHOCYTES # (AUTO) 1.6 K/uL (0.8-4.8); LYMPHOCYTES % (AUTO) 8.7 % (20.0-44.0); MEAN CORPUSCULAR HGB CONC 33 g/dl (31.0-36.0); MEAN CORPUSCULAR VOLUME 93 fL (80-96); MONOCYTES # (AUTO) 1.7 K/uL (0.1-1.30); MONOCYTES % (AUTO) 9.1 % (2.0-12.0); NEUTROPHILS # (AUTO) 14.9 K/uL (1.8-8.9); NEUTROPHILS % (AUTO) 80.2 % (43.0-81.0); PLATELET COUNT (AUTO) 207 K/uL (150-450); WHITE BLOOD COUNT (AUTO) 18.6 K/uL (4.3-11.0)
[2022-04-05 09:37] LABS: CALCIUM, SERUM 8.5 mg/dL (8.5-10.1); CREATININE 2.6 mg/dL (0.6-1.3); MAGNESIUM 1.9 mg/dL (1.8-2.4); PHOSPHORUS 4.1 mg/dL (2.5-4.9)
[2022-04-05] MEDS: HEPARIN SODIUM, PORCINE 5000 UNITS/1 ML VIAL SQ SCH ×2 (11:42→21:23)
[2022-04-05] MEDS: hydrALAZINE HCL 50 MG TABLET PO SCH ×3 (11:46→16:49)
[2022-04-05 11:47] VITALS: BP 180/104
[2022-04-05 12:00] VITALS: BP 170/100
[2022-04-05] MEDS: ACETAMINOPHEN ES 500 MG TABLET GT PRN (12:25)
--- NOTE | 2022-04-05 15:51 | NUR ---
[facility]/RN DUE MEDS ARE GIVEN ORDERED.PM CARE PROVIDED.WOUND DRESSING DONE ORDERED.[facility] ORDERED.
[2022-04-05 16:00] VITALS: BP 154/90
[2022-04-05] MEDS: VIT B CMPLX 3/FA/VIT C/BIOTIN 1 TAB TABLET GT SCH (17:38)
--- NOTE | 2022-04-05 19:20 | NUR ---
RT NOTE PT RECVD ON ORDERED AC VENT SETTINGS AND JUAN CARLOS WELL. TRACH IS PATENT AND SECURED. SUCTION PRN, NEB TX GIVEN AND JUAN CARLOS WELL. VENT PLUGGED INTO RED OUTLET WITH ALARMS ON AND AUDIBLE. NO S/S OF SOB OR RESPIRATORY DISTRESS NOTED.
--- NOTE | 2022-04-05 19:20 | NUR ---
RN NOTE RECEIVED PATIENT IN BED, OBTUNDED, IN NO ACUTE DISTRESS AT THIS TIME. ON TRACH TO MECHANICAL VENT WITH SETTINGS PRESCRIBED: PORTEX #8, AC 16, TV 450, FIO2 40%, PEEP 5, SATURATION AT 100%, ST ON THE MONITOR, HR IS 97. NOTED IV SITE AT LAC 20G, AND ADOLFO MIDLINE, ALL HUBS PATENT AND FLUSHING WELL, NO S/S OF INFECTION OR INFILTRATION WITH LR INFUSING AT 100 ML/HR. NOTED GTUBE INTACT POSITIVE PLACEMENT NOTED, NO RESIDUAL, WITH TUBE FEEDING OF GLUCERNA AT 60 ML/HR. DANIEL CATHETER DRAINING TO A CLOUDY, YELLOW OUTPUT. SAFETY MEASURES IMPLEMENTED. PATIENT BED ALARM IS ON. HEAD OF BED ELEVATED. BED IS LOCKED, IN LOWEST POSITION AND SIDE RAILS UP. CALL LIGHT WITHIN REACH OF THE PATIENT. WILL CONTINUE TO MONITOR AND REASSESS FOR ANY CHANGES.
[2022-04-05 20:00] VITALS: BP 159/95
[2022-04-05] MEDS: ATORVASTATIN 40 MG TABLET GT SCH (21:23)
[2022-04-05] MEDS: DOCUSATE SODIUM 100 MG CAPSULE PO SCH (22:00)
[2022-04-05] MEDS ORDERED: POLYETHYLENE GLYCOL 3350 17 GM POWD.PACK PO PRN (22:00)
[2022-04-05] MEDS ORDERED: MEROPENEM 500 MG in IV NS 0.9% 50 ML IV SCH (22:30)
[2022-04-05] MEDS: INSULIN GLARGINE, 100 UNIT/ML CARTRIDGE SQ SCH (23:17)
[2022-04-05] MEDS ORDERED: MEROPENEM 500 MG VIAL IV ONE (23:21)
[2022-04-06] VITALS (7 sets, daily range): BP systolic 140–185; BP diastolic 64–99
[2022-04-06] MEDS: ALBUTEROL FS 2.5 MG/0.5 ML VIAL.NEB NEB SCH ×4 (01:46→20:02)
[2022-04-06] MEDS: IPRATROPIUM NEB FS 0.5 MG/2.5 ML AMPUL.NEB IH SCH ×4 (01:46→20:02)
[2022-04-06] MEDS: hydrALAZINE HCL IV 20 MG VIAL IV PRN ×3 (04:40→21:22)
[2022-04-06] MEDS: BLOOD SUGAR DIAGNOSTIC 1 EACH STRIP IN SCH ×3 (05:25→18:44)
[2022-04-06] MEDS: IV LR 1000 ML 1,000 ML IV SCH ×2 (05:37→16:30)
[2022-04-06 06:48] LABS: BASOPHILS % (AUTO) 0.2 % (0.0-2.0); EOSINOPHILS % (AUTO) 3.7 % (0.0-6.0); HEMATOCRIT 22 % (39-51); HEMOGLOBIN 7.2 g/dL (13.5-17.5); LYMPHOCYTES # (AUTO) 2.5 K/uL (0.8-4.8); LYMPHOCYTES % (AUTO) 14.1 % (20.0-44.0); MEAN CORPUSCULAR HGB CONC 33 g/dl (31.0-36.0); MEAN CORPUSCULAR VOLUME 93 fL (80-96); MONOCYTES # (AUTO) 1.5 K/uL (0.1-1.30); MONOCYTES % (AUTO) 8.6 % (2.0-12.0); NEUTROPHILS # (AUTO) 13.2 K/uL (1.8-8.9); NEUTROPHILS % (AUTO) 73.4 % (43.0-81.0); PLATELET COUNT (AUTO) 253 K/uL (150-450); RED BLOOD CELL COUNT(AUTO) 2.39 MIL/uL (4.5-6.0); WHITE BLOOD COUNT (AUTO) 17.9 K/uL (4.3-11.0)
[2022-04-06 07:10] LABS: CALCIUM, SERUM 8.4 mg/dL (8.5-10.1); CREATININE 2.4 mg/dL (0.6-1.3); MAGNESIUM 1.7 mg/dL (1.8-2.4); PHOSPHORUS 4.5 mg/dL (2.5-4.9); POTASSIUM 4.9 mmol/L (3.5-5.1)
--- NOTE | 2022-04-06 07:26 | NUR ---
RN/T-[facility] OPENING NOTE PATIENT ASLEEP LAYING ON BED A&OX0. OBTUNDED. ST, ELEVATED BLOOD PRESSURE. PATIENT SATTING AT 100% ON VENT AC MODE, RATE 16, TV 450, FIO2 40% PEEP 5. DIET GLUCERNIA @ 60 MLS/HR 0 RESIDUAL. IV L AC #20G PATENT, INTACT AND FLUSHED WITH NS. ALL SAFETY FALL PRECAUTIONS IN PLACE BED IN LOWEST POSITION, BED LOCK ON, BED ALARM ON, SIDE RAILS UP, CALL LIGHT WITHIN REACH. WILL CONTINUE TO MONITOR.
[2022-04-06 07:59] LABS: BAND % (MANUAL) 4 % (0.0-5.0); BASOPHILS % (MANUAL) 0 % (0.0-2.0); EOSINOPHILS % (MANUAL) 3 % (0-4); LYMPHOCYTES % (MANUAL) 15 % (16-48); MONOCYTES % (MANUAL) 5 % (0-11.0); NEUTROPHILS % (MANUAL) 73 (42-76)
[2022-04-06] MEDS: CHLORHEXIDINE GLUCONATE 15 ML UDC MM SCH ×2 (08:44→18:42)
[2022-04-06] MEDS: DOCUSATE SODIUM 100 MG CAPSULE PO SCH ×2 (08:44→18:42)
[2022-04-06] MEDS: PANTOPRAZOLE 40 MG/PACK PACK GT SCH (08:44)
[2022-04-06] MEDS: hydrALAZINE HCL 50 MG TABLET PO SCH ×3 (08:45→18:44)
[2022-04-06] MEDS: ACETAMINOPHEN ES 500 MG TABLET GT PRN ×3 (08:45→21:21)
[2022-04-06] MEDS: LEVETIRACETAM SOL (5 ML) 100 MG/ML UDC GT SCH ×2 (08:45→20:55)
[2022-04-06] MEDS: HEPARIN SODIUM, PORCINE 5000 UNITS/1 ML VIAL SQ SCH (08:47)
[2022-04-06] MEDS: MEROPENEM 1 G in IV NS 0.9% 100 ML IV SCH ×2 (09:00→21:22)
[2022-04-06] MEDS ORDERED: MEROPENEM 500 MG in IV NS 0.9% 50 ML IV SCH (10:00)
[2022-04-06] MEDS ORDERED: Magnesium 1GM/D5W 100ML PREMIX 100 ML IV SCH (11:00)
[2022-04-06] MEDS: ACETAMINOPHEN 325 MG TABLET PO PRN (13:33)
[2022-04-06] MEDS: VIT B CMPLX 3/FA/VIT C/BIOTIN 1 TAB TABLET GT SCH (18:42)
--- NOTE | 2022-04-06 20:39 | NUR ---
RT PT RECEIVED ON AC 16 450 40% +5. TOLERATING CURRENT SETTINGS WELL. SPO2 100%, HIGH HR 112 BASELINE. NO RESP DISTRESS. NO ADVERSE REACTIONS TO BREATHING TX. MINIMAL THIN SECRETIONS DURING SUCTION. ALARMS ON AND AUDIBLE. VENT PLUGGED INTO RED OUTLET. AMBU BAG AT BEDSIDE. Addendum: 04/06/22 at 2039 by Rony Barba RT Amended: Links added.
[2022-04-06] MEDS: ATORVASTATIN 40 MG TABLET GT SCH (20:55)
[2022-04-06] MEDS: INSULIN GLARGINE, 100 UNIT/ML CARTRIDGE SQ SCH (21:26)
[2022-04-07] VITALS: BP 182/92
[2022-04-07] MEDS: IPRATROPIUM NEB FS 0.5 MG/2.5 ML AMPUL.NEB IH SCH ×4 (01:46→20:17)
[2022-04-07] MEDS: ALBUTEROL FS 2.5 MG/0.5 ML VIAL.NEB NEB SCH ×4 (01:46→20:17)
[2022-04-07] MEDS: IV LR 1000 ML 1,000 ML IV SCH (02:03)
[2022-04-07 04:00] VITALS: BP 182/92
--- NOTE | 2022-04-07 07:32 | NUR ---
RN CLOSING NOTE PATIENT STABLE REPORT GIVEN TO DAY NURSE ALL QUESTIONS ANSWERED.
[2022-04-07 07:36] LABS: BASOPHILS % (AUTO) 0.2 % (0.0-2.0); EOSINOPHILS % (AUTO) 3.3 % (0.0-6.0); HEMATOCRIT 21 % (39-51); LYMPHOCYTES # (AUTO) 1.8 K/uL (0.8-4.8); LYMPHOCYTES % (AUTO) 11.6 % (20.0-44.0); MEAN CORPUSCULAR HGB CONC 33 g/dl (31.0-36.0); MEAN CORPUSCULAR VOLUME 94 fL (80-96); MONOCYTES # (AUTO) 1.5 K/uL (0.1-1.30); MONOCYTES % (AUTO) 9.2 % (2.0-12.0); NEUTROPHILS % (AUTO) 75.7 % (43.0-81.0); PLATELET COUNT (AUTO) 247 K/uL (150-450); RED BLOOD CELL COUNT(AUTO) 2.21 MIL/uL (4.5-6.0); WHITE BLOOD COUNT (AUTO) 15.8 K/uL (4.3-11.0)
[2022-04-07 08:00] VITALS: BP 204/107
[2022-04-07 08:13] LABS: HEMOGLOBIN 6.7 g/dL (13.5-17.5)
--- NOTE | 2022-04-07 08:14 | NUR ---
telephone recorder OPENING NOTE PATIENT ASLEEP LAYING ON BED A&OX0. OBTUNDED. patient is on trach with ordered settings. patient is obtunded and nonverbal. patient is quadriplegic. patient has sacrum oil emulsion. patient on tube feeding. currently running glucerna @ 60 ml/hr. patient has lactated ringers running. patient has right upper arm midline. left ac 20 guage. iv patent and flushing well. patient is very edematous generalized area. all safety measures in place. call light within reach. bed locked in lowest position. side rails x2.
--- NOTE | 2022-04-07 08:17 | NUR ---
RECEIVED CALL FROM LAB.[facility] 6.7 Addendum: 04/07/22 at 0819 by CHUY PEREZ RN NOTIFIED DR. OLIVER HOLLOWAY. WILL FOLLOW-UP
[2022-04-07 08:35] LABS: CALCIUM, SERUM 8.6 mg/dL (8.5-10.1); CREATININE 2.2 mg/dL (0.6-1.3); PHOSPHORUS 4.8 mg/dL (2.5-4.9); POTASSIUM 5.1 mmol/L (3.5-5.1)
[2022-04-07 08:36] LABS: BAND % (MANUAL) 4 % (0.0-5.0); EOSINOPHILS % (MANUAL) 2 % (0-4); LYMPHOCYTES % (MANUAL) 12 % (16-48); MONOCYTES % (MANUAL) 8 % (0-11.0); NEUTROPHILS % (MANUAL) 74 (42-76)
[2022-04-07] MEDS: CHLORHEXIDINE GLUCONATE 15 ML UDC MM SCH ×2 (08:48→17:36)
[2022-04-07] MEDS: LEVETIRACETAM SOL (5 ML) 100 MG/ML UDC GT SCH ×2 (08:48→21:41)
[2022-04-07] MEDS: PANTOPRAZOLE 40 MG/PACK PACK GT SCH (08:48)
[2022-04-07] MEDS: hydrALAZINE HCL IV 20 MG VIAL IV PRN ×3 (08:50→21:47)
[2022-04-07] MEDS: ACETAMINOPHEN ES 500 MG TABLET GT PRN (08:55)
[2022-04-07] MEDS: hydrALAZINE HCL 50 MG TABLET PO SCH ×3 (09:00→17:37)
[2022-04-07] MEDS: DOCUSATE SODIUM 100 MG CAPSULE PO SCH ×2 (09:00→17:00)
--- NOTE | 2022-04-07 09:19 | NUR ---
PATIENT BLOOD PRESSURE 204/107 GAVE HYDRAZALINE IV PUSH PATIENT HAS TEMPERATURE 100 GAVE TYLENOL WILL RECHECK AND FOLLOWUP
--- NOTE | 2022-04-07 10:09 | NUR ---
PATIENT IS UNRESPONSIVE IN THE VENT TOLERATING SETTINGS WELL W/O DISTRESS. PATIENT TRACH IS INTACT AND SIGN OF REDNESS NOTED. Addendum: 04/07/22 at 1010 by JAE WALKER RT Amended: Links added.
[2022-04-07] MEDS: MEROPENEM 1 G in IV NS 0.9% 100 ML IV SCH ×2 (10:52→21:42)
[2022-04-07 12:00] VITALS: BP 187/91
--- NOTE | 2022-04-07 12:38 | NUR ---
blood sugar 1200 98 no coverage
[2022-04-07] MEDS: BLOOD SUGAR DIAGNOSTIC 1 EACH STRIP IN SCH ×4 (12:53→23:34)
--- NOTE | 2022-04-07 13:58 | NUR ---
dr. smith said to give 1 unit PRBC
--- NOTE | 2022-04-07 15:50 | NUR ---
rn note patient has a temperature 99.6, elevated BP implemented cooling measures
--- NOTE | 2022-04-07 15:51 | NUR ---
family at bedside
[2022-04-07 16:00] VITALS: BP 205/99
--- NOTE | 2022-04-07 16:22 | NUR ---
rn note made Dr. smith aware of patient's high blood pressure and fever 99.6 implemented cooling measures and gave hydrazaline iv for bp of 205/99. asked Dr. smith to hold blood transfusion due to high bp and fever is well controlled. said ok to hold blood transfusion. doctor said to give blood transfusion as soon as bp and fever is well maintained
[2022-04-07] MEDS: VIT B CMPLX 3/FA/VIT C/BIOTIN 1 TAB TABLET GT SCH (17:38)
--- NOTE | 2022-04-07 18:53 | NUR ---
PRINCIPAL SOFTWARE ENGINEER CLOSING NOTE PATIENT ASLEEP IN BED. PATIENT IS ALERT AND DISORIENTED AND OBTUNDED. patient is on trach with ordered settings. PATIENT IS SINUS TACHYCARDIA ON TELE MONITOR. patient is quadriplegic. patient has sacrum oil emulsion. patient on tube feeding. currently running glucerna @ 60 ml/hr. patient has right upper arm midline. left ac 20 gauge. iv patent and flushing well. PATIENT HAS G TUBE. G TUBE PATENT AND FLUSHES WELL. patient is very edematous generalized area. all safety measures in place. call light within reach. bed locked in lowest position. side rails x2 UP
[2022-04-07 20:00] VITALS: BP 181/92
--- NOTE | 2022-04-07 21:02 | NUR ---
PLANT PATHOLOGY TEACHER OPENING NOTE PT RECEIVED IN BED, AWAKE, OPENS EYES, NON-VERBAL, OBTUNDED. PT ON PORTEX #8, AC 16, TV 450, FIO2 40%, PEEP 5; PT TOLERATING VENT SETTINGS WELL WITH CURRENT O2SAT OF 96%; NO S/S OF RESP DISTRESS, NO SOB OR COUGH, NON-LABORED AND EQUAL BREATHING. PT ATTACHED TO EXTERNAL MONITOR, ST WITH CURRENT HR OF 112. DANIEL INTACT AND PATENT WITH NO SIGNS OF LEAKING; DRAINING CLEAR AND YELLOW URINE. GT DRESSING C/D/I WITH GLUCERNA RUNNING AT 60 ML/HR, NO RESIDUAL NOTED. LAC 20G AND ADOLFO MIDLINE INTACT AND PATENT; CURRENTLY HAS NO FLUIDS/MEDS RUNNING THROUGH IT. BED IN LOWEST POSITION, CALL LIGHT WITHIN REACH, SIDE RAILS UP X3. WILL CONTINUE TO MONITOR THROUGHOUT THE NIGHT.
--- NOTE | 2022-04-07 21:26 | NUR ---
RN NOTE PT NOTED TO HAVE BP OF 181/92, HR 114, AND TEMP OF 99.6. PER CHARGE NURSE, CONTROL BP AND TEMP RIGHT NOW AND HOLD BLOOD TRANSFUSION.
[2022-04-07] MEDS: ATORVASTATIN 40 MG TABLET GT SCH (21:42)
[2022-04-07] MEDS: ACETAMINOPHEN 325 MG TABLET PO PRN (21:47)
[2022-04-07] MEDS: GLUCERNA 1.2 1,000 ML BOTTLE GT PRN (22:07)
--- NOTE | 2022-04-07 22:18 | NUR ---
RN NOTE PT NOTED TO HAVE BP OF 181/92, HR OF 114, AND TEMP OF 99.6. PT ADMINISTERED HYDRALAZINE AND TYLENOL. WILL MONITOR FOR EFFECTIVENESS.
[2022-04-07] MEDS: AMLODIPINE BESYLATE 10 MG TABLET GT SCH (23:25)
[2022-04-07] MEDS: LABETALOL HCL (100MG) 100 MG TABLET PO SCH (23:26)
[2022-04-07] MEDS: INSULIN GLARGINE, 100 UNIT/ML CARTRIDGE SQ SCH (23:37)
[2022-04-08] VITALS (15 sets, daily range): BP systolic 128–185; BP diastolic 61–96
--- NOTE | 2022-04-08 00:10 | NUR ---
RN NOTE AFTER ADMINISTERING AMLODIPINE AND LABETALOL AT 2330, BP 184/94, HR 92, TEMP 100.4
[2022-04-08] MEDS: IPRATROPIUM NEB FS 0.5 MG/2.5 ML AMPUL.NEB IH SCH ×4 (00:42→19:47)
[2022-04-08] MEDS: ALBUTEROL FS 2.5 MG/0.5 ML VIAL.NEB NEB SCH ×4 (00:42→19:47)
[2022-04-08] MEDS: ACETAMINOPHEN ES 500 MG TABLET GT PRN (00:59)
--- NOTE | 2022-04-08 00:59 | NUR ---
RN NOTE PT NOTED TO HAVE TEMP OF 100.94. PT ADMINISTERED TYLENOL ES 1000 MG. WILL MONITOR FOR EFFECTIVENESS.
[2022-04-08] MEDS: BLOOD SUGAR DIAGNOSTIC 1 EACH STRIP IN SCH ×4 (05:00→23:11)
[2022-04-08] MEDS: hydrALAZINE HCL IV 20 MG VIAL IV PRN (05:31)
--- NOTE | 2022-04-08 05:32 | NUR ---
RN NOTE PT'S TEMPERATURE NOTED TO HAVE GONE DOWN TO 98.9 AFTER ADMINISTERING TYLENOL ES 1000 MG AT 0059. HOWEVER, PT'S BP STILL REMAINS ELEVATED. LATEST BP 163/88 HR 98. PT ADMINISTERED HYDRALAZINE. WILL MONITOR FOR EFFECTIVENESS.
--- NOTE | 2022-04-08 06:37 | NUR ---
MID LEVEL PRACTITIONER CLOSING NOTE PT REMAINS IN BED, OPENS EYES, NON-VERBAL, OBTUNDED, BUT IS NOTED TO WITHDRAW FROM LOCALIZED PAIN. PT REMAINS ON SAME VENT SETTINGS; PT TOLERATED VENT SETTINGS WELL, O2SAT RANGED FROM 96%-99%; NO S/S OF RESP DISTRESS, NON-LABORED AND EQUAL BREATHING, NO COUGH OR SOB. ATTACHED TO EXTERNAL MONITOR, SR-ST WITH HR RANGING FROM 98-114. DANIEL INTACT AND PATENT, DRAINING CLEAR AND YELLOW URINE. GLUCERNA RUNNING AT 60 ML/HR, PT TOLERATING FEEDING WELL WITH NO RESIDUAL NOTED. ADOLFO MIDLINE AND LAC 20G INTACT AND PATENT, FLUSHES EASILY WITH NO RESISTANCE. INFUSED MEROPENEM AT 2200 LAST NIGHT. WOUNDS ON SACRUM CLEANSED AND APPLIED PROPER DRESSING. ALL DUE MEDS ADMINISTERED DURING THE NIGHT. BED IN LOWEST POSITION, CALL LIGHT WITHIN REACH, SIDE RAILS UP X3. WILL ENDORSE TO DAYSHIFT NURSE TO CONTINUE CARE.
[2022-04-08 06:52] LABS: BASOPHILS % (AUTO) 0.2 % (0.0-2.0); EOSINOPHILS % (AUTO) 2.5 % (0.0-6.0); LYMPHOCYTES # (AUTO) 1.9 K/uL (0.8-4.8); LYMPHOCYTES % (AUTO) 10.9 % (20.0-44.0); MEAN CORPUSCULAR HGB CONC 32 g/dl (31.0-36.0); MEAN CORPUSCULAR VOLUME 94 fL (80-96); MONOCYTES # (AUTO) 1.6 K/uL (0.1-1.30); MONOCYTES % (AUTO) 8.7 % (2.0-12.0); NEUTROPHILS # (AUTO) 13.8 K/uL (1.8-8.9); NEUTROPHILS % (AUTO) 77.7 % (43.0-81.0); PLATELET COUNT (AUTO) 265 K/uL (150-450); RED BLOOD CELL COUNT(AUTO) 2.16 MIL/uL (4.5-6.0); WHITE BLOOD COUNT (AUTO) 17.8 K/uL (4.3-11.0)
[2022-04-08 06:58] LABS: HEMOGLOBIN 6.6 g/dL (13.5-17.5)
[2022-04-08 06:59] LABS: HEMATOCRIT 20 % (39-51)
--- NOTE | 2022-04-08 06:59 | NUR ---
RN NOTE RECEIVED CRITICAL FROM LAB. HGB 6.6 AND HCT 20
--- NOTE | 2022-04-08 07:30 | NUR ---
RN OPENING NOTE PATIENT IS IN BED, OBTUNDED, EYES OPEN TO TOUCH AND LIGHT PAIN, NON VERBAL. SINUS RHYTHM ON PRESS SMITH HELPER. DANIEL CATHETER INTACT AND DRAINING TO A CLEAR YELLOW URINE. WITH G-TUBE INFUSING WITH GLUCERNA AT 60 ML/HR. WITH RIGHT UPPER ARM MIDLINE SALINE LOCK, INTACT AND PATENT. WITH LEFT ANTECUBITAL SALINE LOCK INTACT AND PATENT. BREATHING UNLABORED AND NOT IN ANY FORM OF DISTRESS. BED IS LOCKED IN LOWEST POSITION, 3 SIDE RAILS UP, CALL LIGHT WITHIN REACH. WILL CONTINUE TO MONITOR THROUGHOUT SHIFT. Addendum: 04/08/22 at 0746 by JJ POP RN WITH TRACHEOSTOMY TO MECHANICAL VENTILATOR WITH THE FOLLOWING SETTINGS: AC MODE, RR 16, FIO2 40%, PEEP 5.
[2022-04-08 07:34] LABS: CALCIUM, SERUM 8.4 mg/dL (8.5-10.1); CREATININE 2.1 mg/dL (0.6-1.3); MAGNESIUM 2.1 mg/dL (1.8-2.4); POTASSIUM 4.9 mmol/L (3.5-5.1)
[2022-04-08] MEDS: LABETALOL HCL (100MG) 100 MG TABLET PO SCH ×2 (08:18→21:27)
[2022-04-08] MEDS: AMLODIPINE BESYLATE 10 MG TABLET GT SCH (08:18)
[2022-04-08] MEDS: PANTOPRAZOLE 40 MG/PACK PACK GT SCH (08:18)
[2022-04-08] MEDS: DOCUSATE SODIUM 100 MG CAPSULE PO SCH ×2 (08:19→17:02)
[2022-04-08] MEDS: LEVETIRACETAM SOL (5 ML) 100 MG/ML UDC GT SCH ×2 (08:19→21:27)
[2022-04-08] MEDS: hydrALAZINE HCL 50 MG TABLET PO SCH ×3 (08:19→17:02)
[2022-04-08] MEDS: CHLORHEXIDINE GLUCONATE 15 ML UDC MM SCH ×2 (08:19→17:01)
[2022-04-08] MEDS: MEROPENEM 1 G in IV NS 0.9% 100 ML IV SCH ×2 (09:48→21:28)
[2022-04-08 12:22] LABS: BASOPHILS % (MANUAL) 0 % (0.0-2.0); EOSINOPHILS % (MANUAL) 1 % (0-4); LYMPHOCYTES % (MANUAL) 11 % (16-48); MONOCYTES % (MANUAL) 7 % (0-11.0)
[2022-04-08 12:24] LABS: BAND % (MANUAL) 2 % (0.0-5.0); NEUTROPHILS % (MANUAL) 79 (42-76)
--- NOTE | 2022-04-08 13:44 | NUR ---
RN NOTE WOUND CARE DONE. ORAL CARE RENDERED. SUCTIONED ORAL AND TRACHEAL SECRETIONS NEEDED.
[2022-04-08] MEDS: GLUCERNA 1.2 1,000 ML BOTTLE GT PRN (16:05)
--- NOTE | 2022-04-08 16:52 | NUR ---
KASEY NOTE BLOOD TRANSFUSION IS NOT GIVEN BECAUSE PATIENT'S BP REMAINS ELEVATED AT 161/84. JOI BOWERS MADE AWARE. Addendum: 04/08/22 at 1713 by JJ POP RN PER JAMES CORTES TO GIVE BLOOD TRANSFUSION DESPITE ELEVATED BP.
[2022-04-08] MEDS: VIT B CMPLX 3/FA/VIT C/BIOTIN 1 TAB TABLET GT SCH (17:03)
[2022-04-08] MEDS: ACETAMINOPHEN 325 MG TABLET PO PRN (17:24)
--- NOTE | 2022-04-08 18:05 | NUR ---
RN NOTE BLOOD TRANSFUSION STARTED. MONITORED VITAL SIGNS PER PROTOCOL AND OBSERVED PATIENT FOR ANY TRANSFUSION REACTION.
--- NOTE | 2022-04-08 18:59 | NUR ---
RN CLOSING NOTE PATIENT REMAINED STABLE THROUGHOUT SHIFT. STILL ON MECHANICAL VENTILATOR FOLLOWING PRESCRIBED SETTINGS. ONGOING BLOOD TRANSFUSION, NO UNTOWARD REACTION NOTED. RIGHT UPPER ARM MIDLINE INTACT AND PATENT. PEG TUBE INTACT AND PATENT. BREATHING UNLABORED AND NOT IN ANY FORM OF DISTRESS. ALL HOSPITAL PRECAUTIONS IN PLACE. WILL ENDORSE TO LIFE MANAGER NURSE.
--- NOTE | 2022-04-08 19:41 | NUR ---
RN OPENING NOTES: RECEIVED PATIENT IN BED, OBTUNDED, BOTH EYES OPEN. NON VERBAL. ON TRACH TO MECHANICAL VENT SETTINGS AND PT TOLERATED WELL. IV ACCESS ON ADOLFO MIDLINE AND LAC SALINE LOCK INTACT AND PATENT. ON GOING BLOOD TRANSFUSION. V/S SIGNS STABLE. GTUBE FEEDING WELL TOLERATED. RUNNING GLUCERNA 1.2 AT 60CC/HR. DANIEL CATHETER INTACT, DRAINING BY GRAVITY. NOTED CLEAR YELLOW URINE. NO FACIAL GRIMACING NOTED. NO ACUTE DISTRESS. ALL SAFETY MEASURES IN PLACE. BED IN LOWEST POSITION AND LOCKED, SIDE RAILS UP X3, PLACE CALL LIGHT WITHIN REACH. WILL CONTINUE TO MONITOR.
[2022-04-08] MEDS: ATORVASTATIN 40 MG TABLET GT SCH (21:27)
--- NOTE | 2022-04-08 22:14 | NUR ---
RN NOTES: BLOOD TRANSFUSION COMPLETED. PT TOLERATED WELL. V/S STABLE. TEMP-99.2 F, P-89, R-23, BP- 145/83. NO FACIAL GRIMACING NOTED. NO S/S OF ADVERSE REACTIONS. WILL CONTINUE TO MONITOR
[2022-04-08] MEDS ORDERED: ZINC OXIDE 30 GM TUBE TP PRN (22:30)
[2022-04-08] MEDS: INSULIN GLARGINE, 100 UNIT/ML CARTRIDGE SQ SCH (22:57)
[2022-04-08] MEDS: INSULIN REGULAR, HUMAN 100 UNIT/ML 3 ML VIAL SQ PRN (23:12)
--- NOTE | 2022-04-08 23:12 | NUR ---
RN NOTES: PT'S BLOOD SUGAR 95. 15 UNITS OF LANTUS GIVEN. NO COVERAGE FOR REGULAR INSULIN. NO S/S OF HYPER/HYPOGLYCEMIA. WILL CONTINUE TO MONITOR
[2022-04-09] VITALS: BP 153/80
[2022-04-09] MEDS: ALBUTEROL FS 2.5 MG/0.5 ML VIAL.NEB NEB SCH ×4 (01:53→20:24)
[2022-04-09] MEDS: IPRATROPIUM NEB FS 0.5 MG/2.5 ML AMPUL.NEB IH SCH ×4 (01:53→20:24)
[2022-04-09 04:00] VITALS: BP 149/72
[2022-04-09] MEDS: BLOOD SUGAR DIAGNOSTIC 1 EACH STRIP IN SCH ×3 (05:50→17:29)
[2022-04-09] MEDS: INSULIN REGULAR, HUMAN 100 UNIT/ML 3 ML VIAL SQ PRN (05:51)
--- NOTE | 2022-04-09 06:40 | NUR ---
RN CLOSING NOTES: PATIENT IN BED, OBTUNDED, BOTH EYES OPEN. NON VERBAL. ON TRACH TO MECHANICAL VENT SETTINGS AND PT TOLERATED WELL. IV ACCESS ON ADOLFO MIDLINE AND LAC SALINE LOCK INTACT AND PATENT. GTUBE FEEDING WELL TOLERATED. RUNNING GLUCERNA 1.2 AT 60CC/HR. DANIEL CATHETER INTACT, DRAINING BY GRAVITY. NOTED CLEAR YELLOW URINE. NO FACIAL GRIMACING NOTED. NO ACUTE DISTRESS. ALL DUE MEDS GIVEN ORDERED. ALL SAFETY MEASURES IN PLACE. BED IN LOWEST POSITION AND LOCKED, SIDE RAILS UP X3, PLACE CALL LIGHT WITHIN REACH. WILL ENDORSE TO MORNING SHIFT NURSE.
[2022-04-09 07:03] LABS: BASOPHILS % (AUTO) 0.3 % (0.0-2.0); EOSINOPHILS % (AUTO) 2.6 % (0.0-6.0); HEMATOCRIT 23 % (39-51); HEMOGLOBIN 7.5 g/dL (13.5-17.5); LYMPHOCYTES % (AUTO) 11.8 % (20.0-44.0); MEAN CORPUSCULAR HGB CONC 32 g/dl (31.0-36.0); MEAN CORPUSCULAR VOLUME 92 fL (80-96); MONOCYTES # (AUTO) 1.5 K/uL (0.1-1.30); MONOCYTES % (AUTO) 8.9 % (2.0-12.0); NEUTROPHILS # (AUTO) 13.1 K/uL (1.8-8.9); NEUTROPHILS % (AUTO) 76.4 % (43.0-81.0); PLATELET COUNT (AUTO) 272 K/uL (150-450); RED BLOOD CELL COUNT(AUTO) 2.52 MIL/uL (4.5-6.0); WHITE BLOOD COUNT (AUTO) 17.2 K/uL (4.3-11.0)
--- NOTE | 2022-04-09 07:28 | NUR ---
RN OPENING NOTE PATIENT IS IN BED, OBTUNDED, EYES OPEN TO TOUCH AND LIGHT PAIN, NON VERBAL. WITH TRACHEOSTOMY TO MECHANICAL VENTILATOR WITH THE FOLLOWING SETTINGS: AC MODE, RR 16, FIO2 40%, PEEP 5. SINUS RHYTHM ON FILM CLEANER. DANIEL CATHETER INTACT AND DRAINING TO A CLEAR YELLOW URINE. WITH G-TUBE INFUSING WITH GLUCERNA AT 60 ML/HR. WITH RIGHT UPPER ARM MIDLINE SALINE LOCK, INTACT AND PATENT. WITH LEFT ANTECUBITAL SALINE LOCK INTACT AND PATENT. BREATHING UNLABORED AND NOT IN ANY FORM OF DISTRESS. BED IS LOCKED IN LOWEST POSITION, 3 SIDE RAILS UP, CALL LIGHT WITHIN REACH. WILL CONTINUE TO MONITOR THROUGHOUT SHIFT.
[2022-04-09 07:33] LABS: CALCIUM, SERUM 8.2 mg/dL (8.5-10.1); PHOSPHORUS 4.8 mg/dL (2.5-4.9); POTASSIUM 5.2 mmol/L (3.5-5.1)
[2022-04-09 08:00] VITALS: BP 167/84
[2022-04-09] MEDS: LEVETIRACETAM SOL (5 ML) 100 MG/ML UDC GT SCH ×2 (08:39→21:46)
[2022-04-09] MEDS: LABETALOL HCL (100MG) 100 MG TABLET PO SCH ×2 (08:40→21:47)
[2022-04-09] MEDS: CHLORHEXIDINE GLUCONATE 15 ML UDC MM SCH ×2 (08:40→17:28)
[2022-04-09] MEDS: DOCUSATE SODIUM 100 MG CAPSULE PO SCH ×2 (08:40→17:28)
[2022-04-09] MEDS: PANTOPRAZOLE 40 MG/PACK PACK GT SCH (08:40)
[2022-04-09] MEDS: AMLODIPINE BESYLATE 10 MG TABLET GT SCH (08:40)
[2022-04-09] MEDS: hydrALAZINE HCL 50 MG TABLET PO SCH ×3 (08:41→17:29)
[2022-04-09] MEDS: MEROPENEM 1 G in IV NS 0.9% 100 ML IV SCH ×2 (09:35→21:46)
[2022-04-09 09:42] LABS: NEUTROPHILS % (MANUAL) 74 (42-76)
[2022-04-09 09:43] LABS: BASOPHILS % (MANUAL) 0 % (0.0-2.0); EOSINOPHILS % (MANUAL) 5 % (0-4); LYMPHOCYTES % (MANUAL) 11 % (16-48); MONOCYTES % (MANUAL) 10 % (0-11.0)
[2022-04-09] MEDS: GLUCERNA 1.2 1,000 ML BOTTLE GT PRN (11:12)
[2022-04-09 12:00] VITALS: BP 132/54
[2022-04-09 15:37] LABS: OCCULT BLOOD STOOL POSITIVE (NEGATIVE)
--- NOTE | 2022-04-09 15:57 | NUR ---
RN NOTE PATIENT ENDORSED TO KASEY JONES FOR CONTINUITY OF CARE. PATIENT IN STABLE CONDITION.
[2022-04-09 16:00] VITALS: BP 140/83
[2022-04-09] MEDS: IV LR 1000 ML 1,000 ML IV PRN (16:16)
[2022-04-09] MEDS: VIT B CMPLX 3/FA/VIT C/BIOTIN 1 TAB TABLET GT SCH (17:28)
--- NOTE | 2022-04-09 18:51 | NUR ---
RN CLOSING NOTE PATIENT ASLEEP ON BED A&OX0 ALL VSS. PATIENT SATTING AT 97% ON VENT RATE 16, TV 450, FIO2 40%, PEEP 5. DIET GLUCERNA 60ML/HR. IV LFA #22G PATENT, INTACT AND FLUSHED WITH NS. PATIENT IS RUNNING Lr 100MLS/HR. ALL SAFETY FALL PRECAUTIONS IN PLACE BED LOCK ON, BED IN LOWEST POSITION, SIDE RAILS UP, BED ALARM ON, CALL LIGHT WITHIN REACH. PATIENT HAS NO SIGNS OF DISTRESS. ALL CARE ENDORSED TO BUNCH MAKER NURSE.
[2022-04-09 20:00] VITALS: BP 152/88
--- NOTE | 2022-04-09 20:00 | NUR ---
TOOLMAN NOTE PT IN BED WITH EYES CLOSED. OBTUNDED. ON VENT TOLERATING SETTINGS WELL. NO DISTRESS OR DISCOMFORT NOTED. NO S/S OF PAIN NOTED. ON TELE MONITOR ST 105. PT IS HAVING LOW GRADE FEVER 100 DEGREE NOTED. BODY COOLING MEASURES APPLIED. F/C INTACT AND PATENT DRAINING YELLOWISH COLOR URINE. GTF GLUCERNA INFUSING AT 60 ML/HR, 0 ML RESIDUAL NOTED. KEPT HIM DRY AND CLEAN. REPOSITION HIM FOR SKIN MANAGEMENT.ALL NEEDS ATTENDED. CONTINUE TO MONITOR HIM.
[2022-04-09] MEDS: ATORVASTATIN 40 MG TABLET GT SCH (21:46)
[2022-04-09] MEDS: ACETAMINOPHEN 325 MG TABLET PO PRN (21:46)
--- NOTE | 2022-04-09 22:00 | NUR ---
CERTIFIED ART THERAPIST NOTE NOTED RUDY MIDLINE IS LEAKING DC'D LINE. INFORMED CHARGE NURSE TO GET AN ORDER FOR MIDLINE.
[2022-04-10] VITALS: BP 155/83
--- NOTE | 2022-04-10 | NUR ---
CONTINUOUS IMPROVEMENT MANAGER NOTE HA MIDLINE NURSE CAME AND INSERTED NEW LINE IN RUDY #18 G, RESUMED IVF ORDERED. NO S/S OF INFILTRATION NOTED.
[2022-04-10] MEDS: BLOOD SUGAR DIAGNOSTIC 1 EACH STRIP IN SCH ×5 (01:25→23:31)
[2022-04-10] MEDS: INSULIN GLARGINE, 100 UNIT/ML CARTRIDGE SQ SCH ×2 (01:27→22:00)
[2022-04-10] MEDS: IPRATROPIUM NEB FS 0.5 MG/2.5 ML AMPUL.NEB IH SCH ×4 (01:50→19:49)
[2022-04-10] MEDS: ALBUTEROL FS 2.5 MG/0.5 ML VIAL.NEB NEB SCH ×4 (01:50→19:49)
--- NOTE | 2022-04-10 03:36 | NUR ---
WORT EXTRACTOR NOTE ENDORSED TO NURSE INIGUEZ FOR CONTINUE TO CARE.
--- NOTE | 2022-04-10 03:40 | NUR ---
TELE/RN NOTE RECEIVED ENDORSEMENT FROM DEEJAY PARKS FOR CONTINUITY OF CARE
[2022-04-10 04:00] VITALS: BP 195/73
[2022-04-10] MEDS: hydrALAZINE HCL IV 20 MG VIAL IV PRN (04:05)
--- NOTE | 2022-04-10 04:07 | NUR ---
TELE/RN NOTE PATIENTS BP IS 195/73 HR 80 T 99.3. ADMINISTERED PRN HYDRALAZINE PER MD ORDERS. COOL CLOTH APPLIED TO FOREHEAD FOR MILD FEVER.
[2022-04-10] MEDS: GLUCERNA 1.2 1,000 ML BOTTLE GT PRN (06:22)
--- NOTE | 2022-04-10 06:40 | NUR ---
TELE/RN CLOSING NOTE PATIENT CURRENTLY RESTING IN BED. OBTUNDED AT BASELINE. NO S/SX OF PAIN NOTED THIS SHIFT. CONTINUES ON MECHANICAL VENT WITH PATIENT TOLERATING SETTINGS WELL. IV ACCESS TO LEFT UPPER ARM MIDLINE #18G AND LEFT AC #20G BOTH INTACT AND PATENT. CONTINUES ON IVF LR @ 100ML/HR. CONTINUES ON IV ABX. CONTINUES ON GTUBE FEED GLUCERNA AT 60CC/HR WITH NO RESIDUAL NOTED AT THIS TIME. DRESSING TO SACRUM CHANGED THIS SHIFT. CONTINUES ON TELE MONITOR WITH CURRENT READING SR. CALL LIGHT WITHIN REACH. ASPIRATION, FALL AND SAFETY PRECAUTIONS MAINTAINED. WILL ENDORSE PLAN OF CARE TO ONCOMING SHIFT RN.
--- NOTE | 2022-04-10 07:20 | NUR ---
RN/T-KENYA OPENING NOTE PATIENT ASLEEP LAYING ON BED A&OX0. OBTUNDED. ST, ELEVATED BLOOD PRESSURE. PATIENT SATTING AT 100% ON VENT AC MODE, RATE 16, TV 450, FIO2 40% PEEP 5. DIET GLUCERNIA @ 60 MLS/HR 0 RESIDUAL. IV Maryam midline #20G PATENT, INTACT AND FLUSHED WITH NS. ALL SAFETY FALL PRECAUTIONS IN PLACE BED IN LOWEST POSITION, BED LOCK ON, BED ALARM ON, SIDE RAILS UP, CALL LIGHT WITHIN REACH. WILL CONTINUE TO MONITOR.
[2022-04-10 07:22] LABS: BASOPHILS # (AUTO) 0.1 K/uL (0.0-0.2)
[2022-04-10 08:00] VITALS: BP 177/90
[2022-04-10 08:08] LABS: ALBUMIN 2.2 g/dL (3.4-5.0); BILIRUBIN,TOTAL 0.4 mg/dL (0.2-1.0); CALCIUM, SERUM 8.3 mg/dL (8.5-10.1); CREATININE 1.9 mg/dL (0.6-1.3); PHOSPHORUS 4.6 mg/dL (2.5-4.9); POTASSIUM 5.1 mmol/L (3.5-5.1); TOTAL PROTEIN, SERUM 7.8 g/dL (6.4-8.2)
[2022-04-10 08:18] LABS: BASOPHILS % (AUTO) 0.6 % (0.0-2.0); EOSINOPHILS % (AUTO) 2.9 % (0.0-6.0); HEMATOCRIT 24 % (39-51); HEMOGLOBIN 7.6 g/dL (13.5-17.5); LYMPHOCYTES # (AUTO) 2.7 K/uL (0.8-4.8); LYMPHOCYTES % (AUTO) 14.5 % (20.0-44.0); MEAN CORPUSCULAR HGB CONC 32 g/dl (31.0-36.0); MEAN CORPUSCULAR VOLUME 93 fL (80-96); MONOCYTES # (AUTO) 1.7 K/uL (0.1-1.30); MONOCYTES % (AUTO) 9.4 % (2.0-12.0); NEUTROPHILS # (AUTO) 13.4 K/uL (1.8-8.9); NEUTROPHILS % (AUTO) 72.6 % (43.0-81.0); PLATELET COUNT (AUTO) 305 K/uL (150-450); RED BLOOD CELL COUNT(AUTO) 2.58 MIL/uL (4.5-6.0); WHITE BLOOD COUNT (AUTO) 18.4 K/uL (4.3-11.0)
[2022-04-10] MEDS: PANTOPRAZOLE 40 MG/PACK PACK GT SCH (08:36)
[2022-04-10] MEDS: LEVETIRACETAM SOL (5 ML) 100 MG/ML UDC GT SCH ×2 (08:37→21:26)
[2022-04-10] MEDS: AMLODIPINE BESYLATE 10 MG TABLET GT SCH (08:37)
[2022-04-10] MEDS: DOCUSATE SODIUM 100 MG CAPSULE PO SCH ×2 (08:37→17:28)
[2022-04-10] MEDS: LABETALOL HCL (100MG) 100 MG TABLET PO SCH ×2 (08:38→21:26)
[2022-04-10] MEDS: hydrALAZINE HCL 50 MG TABLET PO SCH ×3 (08:38→17:29)
[2022-04-10] MEDS: CHLORHEXIDINE GLUCONATE 15 ML UDC MM SCH ×2 (08:39→17:28)
[2022-04-10 09:03] LABS: BAND % (MANUAL) 5 % (0.0-5.0); BASOPHILS % (MANUAL) 0 % (0.0-2.0); EOSINOPHILS % (MANUAL) 1 % (0-4); LYMPHOCYTES % (MANUAL) 19 % (16-48); MONOCYTES % (MANUAL) 8 % (0-11.0); NEUTROPHILS % (MANUAL) 67 (42-76)
[2022-04-10] MEDS: MEROPENEM 1 G in IV NS 0.9% 100 ML IV SCH ×2 (09:47→21:27)
[2022-04-10] MEDS: ACETAMINOPHEN ES 500 MG TABLET GT PRN (11:32)
[2022-04-10 12:00] VITALS: BP 143/85
[2022-04-10] MEDS ORDERED: VANCOMYCIN 1.5 GM in IV D5W 500ml IV ONE (13:00)
[2022-04-10 16:00] VITALS: BP 152/84
[2022-04-10] MEDS: VIT B CMPLX 3/FA/VIT C/BIOTIN 1 TAB TABLET GT SCH (17:28)
--- NOTE | 2022-04-10 18:51 | NUR ---
RN/T-KENYA CLOSING NOTE PATIENT ASLEEP LAYING ON BED A&OX0. OBTUNDED. ST, ELEVATED BLOOD PRESSURE. PATIENT SATTING AT 100% ON VENT AC MODE, RATE 16, TV 450, FIO2 40% PEEP 5. DIET GLUCERNIA @ 60 MLS/HR 0 RESIDUAL. IV L AC #20G PATENT, INTACT AND FLUSHED WITH NS. ALL SAFETY FALL PRECAUTIONS IN PLACE BED IN LOWEST POSITION, BED LOCK ON, BED ALARM ON, SIDE RAILS UP, CALL LIGHT WITHIN REACH. ALL VSS STABLE PATIENT RESTING ON BED. ALL CARE ENDORSED.
--- NOTE | 2022-04-10 19:30 | NUR ---
RN NOTE RECEIVED PATIENT IN BED, OBTUNDED, IN NO ACUTE DISTRESS AT THIS TIME. ON TRACH TO MECHANICAL VENT WITH SETTINGS PRESCRIBED: PORTEX #8, AC 16, TV 450, FIO2 40%, PEEP 5, SATURATION AT 100%, SR ON THE MONITOR, HR IS 96.IV SITE AT LAC 20G, AND RUDY MIDLINE, PATENT AND FLUSHING WELL, NO S/S OF INFECTION OR INFILTRATION WITH LR INFUSING AT 100 ML/HR. NOTED GTUBE INTACT POSITIVE PLACEMENT NOTED, NO RESIDUAL, WITH TUBE FEEDING OF GLUCERNA AT 60 ML/HR. DANIEL CATHETER DRAINING TO A CLOUDY, YELLOW OUTPUT. SAFETY MEASURES IMPLEMENTED. PATIENT BED ALARM IS ON. HEAD OF BED ELEVATED. BED IS LOCKED, IN LOWEST POSITION AND SIDE RAILS UP. CALL LIGHT WITHIN REACH OF THE PATIENT. WILL CONTINUE TO MONITOR AND REASSESS FOR ANY CHANGES.
[2022-04-10] MEDS: IV LR 1000 ML 1,000 ML IV PRN (19:41)
[2022-04-10] MEDS: IV NS 0.9% 250 ML IV PRN (19:42)
[2022-04-10 20:00] VITALS: BP 159/85
[2022-04-10] MEDS: ATORVASTATIN 40 MG TABLET GT SCH (21:26)
[2022-04-10] MEDS: ACETAMINOPHEN 325 MG TABLET PO PRN (23:35)
[2022-04-11] VITALS: BP 159/52
[2022-04-11] MEDS: ALBUTEROL FS 2.5 MG/0.5 ML VIAL.NEB NEB SCH ×4 (00:58→19:36)
[2022-04-11] MEDS: IPRATROPIUM NEB FS 0.5 MG/2.5 ML AMPUL.NEB IH SCH ×4 (00:59→19:36)
[2022-04-11 04:00] VITALS: BP 155/89
[2022-04-11] MEDS: GLUCERNA 1.2 1,000 ML BOTTLE GT PRN (04:50)
[2022-04-11] MEDS: IV LR 1000 ML 1,000 ML IV PRN ×2 (05:40→20:19)
[2022-04-11] MEDS: BLOOD SUGAR DIAGNOSTIC 1 EACH STRIP IN SCH ×4 (05:53→23:11)
[2022-04-11 06:46] LABS: BASOPHILS # (AUTO) 0.1 K/uL (0.0-0.2); BASOPHILS % (AUTO) 0.4 % (0.0-2.0); EOSINOPHILS % (AUTO) 3.3 % (0.0-6.0); HEMATOCRIT 24 % (39-51); HEMOGLOBIN 7.7 g/dL (13.5-17.5); LYMPHOCYTES # (AUTO) 2.2 K/uL (0.8-4.8); LYMPHOCYTES % (AUTO) 15.8 % (20.0-44.0); MEAN CORPUSCULAR HGB CONC 33 g/dl (31.0-36.0); MEAN CORPUSCULAR VOLUME 92 fL (80-96); MONOCYTES # (AUTO) 1.2 K/uL (0.1-1.30); MONOCYTES % (AUTO) 8.8 % (2.0-12.0); NEUTROPHILS # (AUTO) 9.8 K/uL (1.8-8.9); NEUTROPHILS % (AUTO) 71.7 % (43.0-81.0); PLATELET COUNT (AUTO) 280 K/uL (150-450); RED BLOOD CELL COUNT(AUTO) 2.54 MIL/uL (4.5-6.0); WHITE BLOOD COUNT (AUTO) 13.6 K/uL (4.3-11.0)
[2022-04-11 07:19] LABS: ALBUMIN 2.2 g/dL (3.4-5.0); BILIRUBIN,TOTAL 0.5 mg/dL (0.2-1.0); CALCIUM, SERUM 8.4 mg/dL (8.5-10.1); CREATININE 1.6 mg/dL (0.6-1.3); MAGNESIUM 1.8 mg/dL (1.8-2.4); PHOSPHORUS 4.3 mg/dL (2.5-4.9); POTASSIUM 4.8 mmol/L (3.5-5.1); TOTAL PROTEIN, SERUM 7.7 g/dL (6.4-8.2)
--- NOTE | 2022-04-11 07:20 | NUR ---
RN OPEN NOTE PATIENT IS IN BED, NON VERBAL. WITH TRACHEOSTOMY TO MECHANICAL VENTILATOR WITH THE FOLLOWING SETTINGS: AC MODE, RR 16, FIO2 40%, PEEP 5. SINUS RHYTHM ON OIL SEPARATOR. DANIEL CATHETER INTACT AND DRAINING TO A CLEAR YELLOW URINE. WITH G-TUBE INFUSING WITH GLUCERNA AT 60 ML/HR. WITH RIGHT UPPER ARM MIDLINE SALINE LOCK, INTACT AND PATENT. WITH LEFT ANTECUBITAL SALINE LOCK INTACT AND PATENT. BREATHING UNLABORED AND NOT IN ANY FORM OF DISTRESS. BED IS LOCKED IN LOWEST POSITION, 3 SIDE RAILS UP, CALL LIGHT WITHIN REACH. WILL CONTINUE TO MONITOR THROUGHOUT SHIFT.
[2022-04-11 08:00] VITALS: BP 179/90
[2022-04-11] MEDS: LEVETIRACETAM SOL (5 ML) 100 MG/ML UDC GT SCH ×2 (09:11→22:10)
[2022-04-11] MEDS: PANTOPRAZOLE 40 MG/PACK PACK GT SCH ×2 (09:11→09:17)
[2022-04-11] MEDS: AMLODIPINE BESYLATE 10 MG TABLET GT SCH (09:12)
[2022-04-11] MEDS: LABETALOL HCL (100MG) 100 MG TABLET PO SCH ×2 (09:12→22:10)
[2022-04-11] MEDS: CHLORHEXIDINE GLUCONATE 15 ML UDC MM SCH ×2 (09:13→16:10)
[2022-04-11] MEDS: hydrALAZINE HCL 50 MG TABLET PO SCH ×3 (09:17→16:10)
[2022-04-11] MEDS: DOCUSATE SODIUM 100 MG CAPSULE PO SCH ×2 (09:18→16:10)
[2022-04-11] MEDS: MEROPENEM 1 G in IV NS 0.9% 100 ML IV SCH ×2 (10:47→22:11)
[2022-04-11] MEDS ORDERED: VANCOMYCIN 1.25 GM in IV D5W 250 ML IV SCH (12:00)
[2022-04-11 12:09] VITALS: BP 164/85
--- NOTE | 2022-04-11 16:01 | NUR ---
RN note patient was transferred to the radiology for the chest CT scan
[2022-04-11 16:03] VITALS: BP 165/85
[2022-04-11] MEDS: VIT B CMPLX 3/FA/VIT C/BIOTIN 1 TAB TABLET GT SCH (17:14)
--- NOTE | 2022-04-11 19:30 | NUR ---
RN NOTE RECEIVED PATIENT IN BED, OBTUNDED, IN NO ACUTE DISTRESS AT THIS TIME. ON TRACH TO MECHANICAL VENT WITH SETTINGS PRESCRIBED: PORTEX #8, AC 16, TV 450, FIO2 40%, PEEP 5, SATURATION AT 100%, ST ON THE MONITOR, HR IS 101.IV SITE AT LAC 20G, AND RUDY MIDLINE, PATENT AND FLUSHING WELL, NO S/S OF INFECTION OR INFILTRATION WITH LR INFUSING AT 100 ML/HR. NOTED GTUBE INTACT POSITIVE PLACEMENT NOTED, NO RESIDUAL, WITH TUBE FEEDING OF GLUCERNA AT 60 ML/HR. DANIEL CATHETER DRAINING TO A CLOUDY, YELLOW OUTPUT. SAFETY MEASURES IMPLEMENTED. PATIENT BED ALARM IS ON. HEAD OF BED ELEVATED. BED IS LOCKED, IN LOWEST POSITION AND SIDE RAILS UP. CALL LIGHT WITHIN REACH OF THE PATIENT. WILL CONTINUE TO MONITOR AND REASSESS FOR ANY CHANGES.
--- NOTE | 2022-04-11 19:36 | NUR ---
PT RCVD. TRACHED WITH PORTEX 8 CUFFED ON MECHANICAL VENTILATION WITH THE SETTINGS OF AC 16,VT 450,FIO2 40%,PEEP 5. AMBU BAG/BACK UP TRACH @ BEDSIDE. BREATHING TX GIVEN, NO ADVERSE REACTION NOTED. SX DONE, TRACH SECURED AND PATENT. ALARMS ON AND AUDIBLE. NO RESPIRATORY DISTRESS NOTED. WILL MONITOR T/O SHIFT.
[2022-04-11 20:00] VITALS: BP 154/87
[2022-04-11] MEDS: ATORVASTATIN 40 MG TABLET GT SCH (22:10)
[2022-04-11] MEDS: INSULIN GLARGINE, 100 UNIT/ML CARTRIDGE SQ SCH (23:05)
[2022-04-11] MEDS: SILVER SULFADIAZINE CREAM 25 GM TUBE TP SCH (23:30)
[2022-04-12] VITALS (7 sets, daily range): BP systolic 148–178; BP diastolic 77–92
[2022-04-12] MEDS: ALBUTEROL FS 2.5 MG/0.5 ML VIAL.NEB NEB SCH ×4 (01:30→20:24)
[2022-04-12] MEDS: IPRATROPIUM NEB FS 0.5 MG/2.5 ML AMPUL.NEB IH SCH ×4 (01:30→20:24)
[2022-04-12] MEDS: GLUCERNA 1.2 1,000 ML BOTTLE GT PRN ×2 (03:03→17:23)
[2022-04-12] MEDS: hydrALAZINE HCL IV 20 MG VIAL IV PRN (04:15)
[2022-04-12] MEDS: BLOOD SUGAR DIAGNOSTIC 1 EACH STRIP IN SCH ×4 (05:05→23:18)
[2022-04-12 06:50] LABS: BASOPHILS % (AUTO) 0.3 % (0.0-2.0); EOSINOPHILS % (AUTO) 3.4 % (0.0-6.0); HEMATOCRIT 23 % (39-51); HEMOGLOBIN 7.4 g/dL (13.5-17.5); LYMPHOCYTES % (AUTO) 14.6 % (20.0-44.0); MEAN CORPUSCULAR HGB CONC 33 g/dl (31.0-36.0); MEAN CORPUSCULAR VOLUME 93 fL (80-96); MONOCYTES # (AUTO) 1.3 K/uL (0.1-1.30); MONOCYTES % (AUTO) 9.3 % (2.0-12.0); NEUTROPHILS % (AUTO) 72.4 % (43.0-81.0); PLATELET COUNT (AUTO) 293 K/uL (150-450); RED BLOOD CELL COUNT(AUTO) 2.45 MIL/uL (4.5-6.0); WHITE BLOOD COUNT (AUTO) 13.7 K/uL (4.3-11.0)
[2022-04-12] MEDS: IV LR 1000 ML 1,000 ML IV SCH ×2 (07:00→17:22)
[2022-04-12 07:11] LABS: ALBUMIN 2.2 g/dL (3.4-5.0); BILIRUBIN,TOTAL 0.5 mg/dL (0.2-1.0); CALCIUM, SERUM 8.4 mg/dL (8.5-10.1); CREATININE 1.4 mg/dL (0.6-1.3); MAGNESIUM 1.8 mg/dL (1.8-2.4); POTASSIUM 4.7 mmol/L (3.5-5.1); TOTAL PROTEIN, SERUM 7.6 g/dL (6.4-8.2)
--- NOTE | 2022-04-12 07:30 | NUR ---
RN NOTE PATIENT IS IN BED, NON VERBAL. WITH TRACHEOSTOMY TO MECHANICAL VENTILATOR WITH THE FOLLOWING SETTINGS: AC MODE, RR 16, FIO2 40%, PEEP 5. SINUS RHYTHM TO SINUS TACH 70'S-100'S ON PUBLIC IMPROVEMENT INSPECTOR. DANIEL CATHETER INTACT AND DRAINING CLEAR YELLOW URINE. WITH G-TUBE PATENT AND INFUSING GLUCERNA AT 60 ML/HR. WITH RIGHT UPPER ARM MIDLINE INTACT AND PATENT INFUSING LR AT 100ML/HR. WITH LEFT ANTECUBITAL G#20 SALINE LOCK INTACT AND PATENT. BREATHING UNLABORED AND NOT IN ANY FORM OF DISTRESS. BED IS LOCKED IN LOWEST POSITION, 3 SIDE RAILS UP, CALL LIGHT WITHIN REACH. WILL CONTINUE PLAN OF CARE.
--- NOTE | 2022-04-12 08:00 | NUR ---
BP 169/86. SCHEDULED HYPERTENSIVE MEDICATIONS GIVEN. WILL CONTINUE TO MONITOR.
[2022-04-12] MEDS: CHLORHEXIDINE GLUCONATE 15 ML UDC MM SCH ×2 (08:32→17:22)
[2022-04-12] MEDS: DOCUSATE SODIUM LIQ 100 MG/10 ML UDC GT SCH ×2 (08:32→17:21)
[2022-04-12] MEDS: LEVETIRACETAM SOL (5 ML) 100 MG/ML UDC GT SCH ×2 (08:32→22:30)
[2022-04-12] MEDS: PANTOPRAZOLE 40 MG/PACK PACK GT SCH (08:33)
[2022-04-12] MEDS: LABETALOL HCL (100MG) 100 MG TABLET PO SCH ×2 (08:34→22:30)
[2022-04-12] MEDS: AMLODIPINE BESYLATE 10 MG TABLET GT SCH (08:35)
[2022-04-12] MEDS: hydrALAZINE HCL 50 MG TABLET PO SCH ×3 (08:35→17:22)
[2022-04-12] MEDS: SILVER SULFADIAZINE CREAM 25 GM TUBE TP SCH (08:36)
[2022-04-12] MEDS: MEROPENEM 1 G in IV NS 0.9% 100 ML IV SCH ×2 (09:09→22:31)
[2022-04-12] MEDS: INSULIN REGULAR, HUMAN 100 UNIT/ML 3 ML VIAL SQ PRN ×2 (11:29→18:19)
[2022-04-12] MEDS: VANCOMYCIN 1.5 GM in IV D5W 500ml IV SCH (13:14)
[2022-04-12] MEDS: VIT B CMPLX 3/FA/VIT C/BIOTIN 1 TAB TABLET GT SCH (17:21)
--- NOTE | 2022-04-12 18:27 | NUR ---
RT Patient received on vent: AC 16 450 40% +5. Breathing tx and suction tolerated well. Trach secured and patent. Ambu bag and back up trach at bedside. Vent alarms on and audible. Vent plugged into red outlet. No respiratory distress noted at this time.
--- NOTE | 2022-04-12 18:37 | NUR ---
RN NOTE PATIENT IS IN BED, NON VERBAL. WITH TRACHEOSTOMY TO MECHANICAL VENTILATOR WITH THE FOLLOWING SETTINGS: AC MODE, RR 16, FIO2 40%, PEEP 5. SINUS RHYTHM 90'S ON WINDING INSPECTOR. DANIEL CATHETER INTACT AND DRAINING CLEAR YELLOW URINE. WITH G-TUBE PATENT AND INFUSING GLUCERNA AT 60 ML/HR. WITH LT UPPER ARM MIDLINE INTACT AND PATENT INFUSING LR AT 100ML/HR. WITH LEFT ANTECUBITAL G#20 SALINE LOCK INTACT AND PATENT. BREATHING UNLABORED AND NOT IN ANY FORM OF DISTRESS. ALL SAFETY MEASURES IN PLACE. BED IS LOCKED IN LOWEST POSITION, 3 SIDE RAILS UP, CALL LIGHT WITHIN REACH. NEEDS ATTENDED. WILL ENDORSE TO NEXT NURSE ON DUTY FOR CONTINUITY OF CARE.
[2022-04-12] MEDS: ATORVASTATIN 40 MG TABLET GT SCH (22:31)
[2022-04-12] MEDS: ACETAMINOPHEN 325 MG TABLET PO PRN (22:43)
[2022-04-12] MEDS: INSULIN GLARGINE, 100 UNIT/ML CARTRIDGE SQ SCH (22:53)
[2022-04-13] VITALS (7 sets, daily range): BP systolic 131–165; BP diastolic 67–92
[2022-04-13] MEDS: IPRATROPIUM NEB FS 0.5 MG/2.5 ML AMPUL.NEB IH SCH ×4 (01:34→19:37)
[2022-04-13] MEDS: ALBUTEROL FS 2.5 MG/0.5 ML VIAL.NEB NEB SCH ×4 (01:34→19:37)
[2022-04-13] MEDS: IV LR 1000 ML 1,000 ML IV SCH ×2 (03:12→12:34)
[2022-04-13] MEDS: BLOOD SUGAR DIAGNOSTIC 1 EACH STRIP IN SCH ×3 (05:26→17:25)
[2022-04-13] MEDS: hydrALAZINE HCL IV 20 MG VIAL IV PRN (05:50)
[2022-04-13 07:18] LABS: BASOPHILS % (AUTO) 0.3 % (0.0-2.0); EOSINOPHILS % (AUTO) 3.7 % (0.0-6.0); HEMATOCRIT 22 % (39-51); HEMOGLOBIN 7.2 g/dL (13.5-17.5); LYMPHOCYTES # (AUTO) 1.9 K/uL (0.8-4.8); LYMPHOCYTES % (AUTO) 15.6 % (20.0-44.0); MEAN CORPUSCULAR HGB CONC 33 g/dl (31.0-36.0); MEAN CORPUSCULAR VOLUME 92 fL (80-96); MONOCYTES # (AUTO) 1.3 K/uL (0.1-1.30); MONOCYTES % (AUTO) 10.3 % (2.0-12.0); NEUTROPHILS # (AUTO) 8.6 K/uL (1.8-8.9); NEUTROPHILS % (AUTO) 70.1 % (43.0-81.0); PLATELET COUNT (AUTO) 285 K/uL (150-450); RED BLOOD CELL COUNT(AUTO) 2.41 MIL/uL (4.5-6.0); WHITE BLOOD COUNT (AUTO) 12.3 K/uL (4.3-11.0)
--- NOTE | 2022-04-13 07:22 | NUR ---
PHOTOGRAPHER'S ASSISTANT OPENING NOTE RECEIVED PATIENT IN BED, OBTUNDED, IN NO ACUTE DISTRESS AT THIS TIME. ON TRACH TO MECHANICAL VENT WITH SETTINGS PRESCRIBED: PORTEX #8, AC 16, TV 450, FIO2 40%, PEEP 5, SATURATION AT 100%, SR ON THE MONITOR, HR IS 91.IV SITE AT LAC 20G, AND RUDY MIDLINE, PATENT AND FLUSHING WELL, NO S/S OF INFECTION OR INFILTRATION WITH LR INFUSING AT 100 ML/HR. NOTED GTUBE INTACT POSITIVE PLACEMENT NOTED, NO RESIDUAL, WITH TUBE FEEDING OF GLUCERNA AT 60 ML/HR. DANIEL CATHETER DRAINING TO A CLOUDY, YELLOW OUTPUT. SAFETY MEASURES IMPLEMENTED. PATIENT BED ALARM IS ON. HEAD OF BED ELEVATED. BED IS LOCKED, IN LOWEST POSITION AND SIDE RAILS UP. CALL LIGHT WITHIN REACH OF THE PATIENT. WILL CONTINUE TO MONITOR AND REASSESS FOR ANY CHANGES.
[2022-04-13] MEDS ORDERED: VANCOMYCIN 1 GM in IV D5W 250ml IV SCH (08:00)
[2022-04-13] MEDS: CHLORHEXIDINE GLUCONATE 15 ML UDC MM SCH ×2 (09:04→17:03)
[2022-04-13] MEDS: LEVETIRACETAM SOL (5 ML) 100 MG/ML UDC GT SCH ×2 (09:04→21:53)
[2022-04-13] MEDS: hydrALAZINE HCL 50 MG TABLET PO SCH ×3 (09:05→17:04)
[2022-04-13] MEDS: PANTOPRAZOLE 40 MG/PACK PACK GT SCH (09:05)
[2022-04-13] MEDS: DOCUSATE SODIUM LIQ 100 MG/10 ML UDC GT SCH ×2 (09:05→17:03)
[2022-04-13] MEDS: AMLODIPINE BESYLATE 10 MG TABLET GT SCH (09:06)
[2022-04-13] MEDS: LABETALOL HCL (100MG) 100 MG TABLET PO SCH ×2 (09:06→21:55)
[2022-04-13] MEDS: SILVER SULFADIAZINE CREAM 25 GM TUBE TP SCH (09:07)
[2022-04-13] MEDS: MEROPENEM 1 G in IV NS 0.9% 100 ML IV SCH ×2 (09:13→21:53)
[2022-04-13 09:21] LABS: ALBUMIN 2.2 g/dL (3.4-5.0); BILIRUBIN,TOTAL 0.5 mg/dL (0.2-1.0); CALCIUM, SERUM 8.8 mg/dL (8.5-10.1); CREATININE 1.3 mg/dL (0.6-1.3); MAGNESIUM 1.8 mg/dL (1.8-2.4); PHOSPHORUS 3.9 mg/dL (2.5-4.9); POTASSIUM 4.3 mmol/L (3.5-5.1); TOTAL PROTEIN, SERUM 7.6 g/dL (6.4-8.2)
[2022-04-13] MEDS: VANCOMYCIN 1.5 GM in IV D5W 500ml IV SCH (12:00)
--- NOTE | 2022-04-13 12:23 | NUR ---
rn notes: received vanco trough 27 called pharmacy with order to hold the dose
[2022-04-13] MEDS: VIT B CMPLX 3/FA/VIT C/BIOTIN 1 TAB TABLET GT SCH (17:04)
--- NOTE | 2022-04-13 19:15 | NUR ---
CARDIAC REHABILITATION SPECIALIST CLOSING NOTES: PATIENT IN BED, OBTUNDED, IN NO ACUTE DISTRESS AT THIS TIME. ON TRACH TO MECHANICAL VENT WITH SETTINGS PRESCRIBED: PORTEX #8, AC 16, TV 450, FIO2 40%, PEEP 5, SATURATION AT 100%, SR ON THE MONITOR, .IV SITE AT LAC 20G, AND RUDY MIDLINE, PATENT AND FLUSHING WELL, NO S/S OF INFECTION OR INFILTRATION WITH LR INFUSING AT 100 ML/HR. NOTED GTUBE INTACT POSITIVE PLACEMENT NOTED, NO RESIDUAL, WITH TUBE FEEDING OF GLUCERNA AT 60 ML/HR. DANIEL CATHETER DRAINING TO A YELLOW OUTPUT. SAFETY MEASURES IMPLEMENTED. PATIENT BED ALARM IS ON. HEAD OF BED ELEVATED. BED IS LOCKED, IN LOWEST POSITION AND SIDE RAILS UP. CALL LIGHT WITHIN REACH OF THE PATIENT. ENDORSEDTO PERFORATOR OPERATOR OIL WELL RN TO MONITOR AND REASSESS FOR ANY CHANGES.
--- NOTE | 2022-04-13 20:00 | NUR ---
CRAFT RECRUITER NOTE PT IN BED OBTUNDED. ON VENT/TRACH TOLERATING VENT SETTINGS. NO SOB, NO DISTRESS OR DISCOMFORT NOTED. NO S/S OF PAIN NOTED. GTF INFUSING WELL AT 60 ML/HR, NO RESIDUAL NOTED AT THIS TIME. RUDY MIDLINE INTACT AND PATENT INFUSING LR @ 100 ML/HR, NO S/S OF INFILTRATION NOTED. LAC #20 G SL INTACT AND PATENT. ON TELE SR HR 88. ALL NEEDS ATTENDED. KEPT HIM DRY AND CLEAN. REPOSITION HIM FOR SKIN MANAGEMENT AND COMFORT. SIDE RAILS UP X 3 AND CALL LIGHT WITHIN REACH. VSS. CONTINUE TO MONITOR HIM.
[2022-04-13] MEDS: ATORVASTATIN 40 MG TABLET GT SCH (21:54)
[2022-04-13] MEDS: GLUCERNA 1.2 1,000 ML BOTTLE GT PRN (22:20)
[2022-04-14] VITALS: BP 128/65
[2022-04-14] MEDS: BLOOD SUGAR DIAGNOSTIC 1 EACH STRIP IN SCH ×4 (00:19→17:43)
[2022-04-14] MEDS: IV LR 1000 ML 1,000 ML IV SCH ×4 (00:19→23:21)
[2022-04-14] MEDS: INSULIN GLARGINE, 100 UNIT/ML CARTRIDGE SQ SCH ×2 (00:21→22:00)
[2022-04-14] MEDS: ALBUTEROL FS 2.5 MG/0.5 ML VIAL.NEB NEB SCH ×4 (02:02→20:02)
[2022-04-14] MEDS: IPRATROPIUM NEB FS 0.5 MG/2.5 ML AMPUL.NEB IH SCH ×4 (02:02→20:02)
[2022-04-14 04:00] VITALS: BP 157/78
--- NOTE | 2022-04-14 06:43 | NUR ---
WATCH INSPECTOR NOTE PT IN BED OBTUNDED. NO DISTRESS OR DISCOMFORT NOTED. ON TELE SR 92 IVF LR INFUSING WELL AT 100 ML/HR, NO S/S OF INFILTRATION NOTED. KEPT HIM DRY AND CLEAN. F/C INTACT AND PATENT DRAINING YELLOWISH COLOR URINE. SIDE RAILS UP X 2 AND CALL LIGHT WITHIN REACH. WILL ENDORSE TO DAY SHIFT NURSE FOR CONTINUE TO CARE.
[2022-04-14 06:57] LABS: BASOPHILS # (AUTO) 0.1 K/uL (0.0-0.2); BASOPHILS % (AUTO) 0.5 % (0.0-2.0); EOSINOPHILS % (AUTO) 3.9 % (0.0-6.0); HEMATOCRIT 22 % (39-51); HEMOGLOBIN 7.4 g/dL (13.5-17.5); LYMPHOCYTES # (AUTO) 1.8 K/uL (0.8-4.8); LYMPHOCYTES % (AUTO) 16.7 % (20.0-44.0); MEAN CORPUSCULAR HGB CONC 34 g/dl (31.0-36.0); MEAN CORPUSCULAR VOLUME 91 fL (80-96); MONOCYTES # (AUTO) 1.1 K/uL (0.1-1.30); MONOCYTES % (AUTO) 10.3 % (2.0-12.0); NEUTROPHILS # (AUTO) 7.6 K/uL (1.8-8.9); NEUTROPHILS % (AUTO) 68.6 % (43.0-81.0); PLATELET COUNT (AUTO) 287 K/uL (150-450); RED BLOOD CELL COUNT(AUTO) 2.41 MIL/uL (4.5-6.0); WHITE BLOOD COUNT (AUTO) 11.1 K/uL (4.3-11.0)
--- NOTE | 2022-04-14 07:30 | NUR ---
RN/TELE NOTE PATIENT RESTING COMFORTABLY ON BED A&OX0. ALL VSS. PATIENT SATTING AT 100% VENT RATE: 16 TV: 450 FIO2: 40% PEEP:5. VOIDING VIA DANIEL CATHETER PATENT AND DRAINING BELOW THE BLADDER. DIET GLUCERNA 60ML/HR. IV RUDY MIDLINE LAC RUNNING Lr 1,000 @100MLS/HR. ALL SAFETY FALL PRECAUTIONS IN PLACE BED LOCK ON, BED ALARM ON, SIDE RAILS UP, BED IN LOWEST POSITION, CALL LIGHT WITHIN REACH. WILL CONTINUE TO MONITOR.
[2022-04-14 07:39] LABS: ALBUMIN 2.3 g/dL (3.4-5.0); BILIRUBIN,TOTAL 0.5 mg/dL (0.2-1.0); CALCIUM, SERUM 8.8 mg/dL (8.5-10.1); CREATININE 1.2 mg/dL (0.6-1.3); MAGNESIUM 1.9 mg/dL (1.8-2.4); PHOSPHORUS 4.1 mg/dL (2.5-4.9); POTASSIUM 4.2 mmol/L (3.5-5.1); TOTAL PROTEIN, SERUM 7.7 g/dL (6.4-8.2)
[2022-04-14] MEDS: VANCOMYCIN 1 GM in IV D5W 250ml IV SCH (07:53)
[2022-04-14 08:00] VITALS: BP 163/86
[2022-04-14] MEDS: CHLORHEXIDINE GLUCONATE 15 ML UDC MM SCH ×2 (08:43→17:27)
[2022-04-14] MEDS: LEVETIRACETAM SOL (5 ML) 100 MG/ML UDC GT SCH ×2 (08:43→21:18)
[2022-04-14] MEDS: hydrALAZINE HCL 50 MG TABLET PO SCH ×3 (08:44→17:40)
[2022-04-14] MEDS: LABETALOL HCL (100MG) 100 MG TABLET PO SCH ×2 (08:44→21:18)
[2022-04-14] MEDS: PANTOPRAZOLE 40 MG/PACK PACK GT SCH (08:44)
[2022-04-14] MEDS: AMLODIPINE BESYLATE 10 MG TABLET GT SCH (08:44)
[2022-04-14] MEDS: DOCUSATE SODIUM LIQ 100 MG/10 ML UDC GT SCH ×2 (08:44→17:27)
[2022-04-14] MEDS: SILVER SULFADIAZINE CREAM 25 GM TUBE TP SCH (08:45)
[2022-04-14] MEDS: MEROPENEM 1 G in IV NS 0.9% 100 ML IV SCH ×2 (09:01→21:18)
[2022-04-14 12:00] VITALS: BP 138/71
[2022-04-14 16:00] VITALS: BP 139/74
[2022-04-14] MEDS: VIT B CMPLX 3/FA/VIT C/BIOTIN 1 TAB TABLET GT SCH (17:27)
--- NOTE | 2022-04-14 19:05 | NUR ---
RN/TELE CLOSING NOTE PATIENT RESTING COMFORTABLY ON BED A&OX0. ALL VSS. PATIENT SATTING AT 100% VENT RATE: 16 TV: 450 FIO2: 40% PEEP:5. VOIDING VIA DANIEL CATHETER PATENT AND DRAINING BELOW THE BLADDER. DIET GLUCERNA 60ML/HR. IV RUDY MIDLINE LAC RUNNING Lr 1,000 @100MLS/HR. ALL SAFETY FALL PRECAUTIONS IN PLACE BED LOCK ON, BED ALARM ON, SIDE RAILS UP, BED IN LOWEST POSITION, CALL LIGHT WITHIN REACH. ALL CARE ENDORSED TO HOMEOPATHIC DOCTOR NURSE.
[2022-04-14 20:00] VITALS: BP 139/85
[2022-04-14] MEDS: ATORVASTATIN 40 MG TABLET GT SCH (21:18)
[2022-04-14] MEDS ORDERED: LIDOCAINE 1%-EPI 1:100,000 20 ML VIAL TP ONE (22:00)
[2022-04-14] MEDS ORDERED: SILVER NITRATE APPLICATOR 1 EA BOX TP SCH (22:00)
[2022-04-14] MEDS: GLUCERNA 1.2 1,000 ML BOTTLE GT PRN (23:06)
[2022-04-15] VITALS: BP 154/87
[2022-04-15] MEDS: BLOOD SUGAR DIAGNOSTIC 1 EACH STRIP IN SCH ×5 (00:47→23:19)
[2022-04-15] MEDS: ALBUTEROL FS 2.5 MG/0.5 ML VIAL.NEB NEB SCH ×3 (01:12→13:25)
[2022-04-15] MEDS: IPRATROPIUM NEB FS 0.5 MG/2.5 ML AMPUL.NEB IH SCH ×3 (01:12→13:25)
[2022-04-15 04:00] VITALS: BP 136/67
--- NOTE | 2022-04-15 07:30 | NUR ---
RN OPENING NOTE PATIENT IS IN BED, OBTUNDED, NON VERBAL. WITH TRACHEOSTOMY TO MECHANICAL VENTILATOR WITH THE FOLLOWING SETTINGS: AC MODE, RR 16, TV 150, FIO2 40%, PEEP 5. SINUS RHYTHM ON FLOWER STRIPPER. WITH G-TUBE INFUSING WITH GLUCERNA 60 ML/HR. WITH LEFT UPPER ARM MIDLINE INFUSING WITH LR AT 100 ML/HR. LEFT ANTECUBITAL IV INTACT AND PATENT. WITH DANIEL CATHETER ATTACHED TO URINE BAG DRAINING TO A YELLOW COLORED URINE. BREATHING UNLABORED AND NOT IN ANY FORM OF DISTRESS. BED IS LOCKED IN LOWEST POSITION, 3 SIDE RAILS UP, CALL LIGHT WITHIN REACH. WILL CONTINUE TO MONITOR THROUGHOUT SHIFT.
[2022-04-15] MEDS: VANCOMYCIN 1 GM in IV D5W 250ml IV SCH (07:55)
[2022-04-15 08:00] VITALS: BP 171/94
[2022-04-15 08:53] LABS: CREATININE 1.1 mg/dL (0.6-1.3); POTASSIUM 4.1 mmol/L (3.5-5.1)
[2022-04-15] MEDS: CHLORHEXIDINE GLUCONATE 15 ML UDC MM SCH ×2 (09:17→17:04)
[2022-04-15] MEDS: LABETALOL HCL (100MG) 100 MG TABLET PO SCH ×2 (09:18→22:10)
[2022-04-15] MEDS: hydrALAZINE HCL 50 MG TABLET PO SCH ×3 (09:18→17:04)
[2022-04-15] MEDS: DOCUSATE SODIUM LIQ 100 MG/10 ML UDC GT SCH ×2 (09:18→17:04)
[2022-04-15] MEDS: PANTOPRAZOLE 40 MG/PACK PACK GT SCH (09:18)
[2022-04-15] MEDS: LEVETIRACETAM SOL (5 ML) 100 MG/ML UDC GT SCH ×2 (09:19→21:52)
[2022-04-15] MEDS: AMLODIPINE BESYLATE 10 MG TABLET GT SCH (09:19)
[2022-04-15] MEDS: SILVER SULFADIAZINE CREAM 25 GM TUBE TP SCH (09:54)
[2022-04-15] MEDS: MEROPENEM 1 G in IV NS 0.9% 100 ML IV SCH ×2 (09:58→22:13)
[2022-04-15 12:00] VITALS: BP 142/71
--- NOTE | 2022-04-15 12:29 | NUR ---
RN NOTE ASSISTED IN WOUND DEBRIDEMENT BY Carline SOLIS. WOUND PHOTOGRAPHED AND DOCUMENTED.
[2022-04-15] MEDS: IV LR 1000 ML 1,000 ML IV SCH (13:54)
[2022-04-15] MEDS: DEXAMETHASONE SOD PHOSPHATE 10 MG/ML VIAL IV SCH (15:41)
[2022-04-15 16:00] VITALS: BP 141/76
[2022-04-15] MEDS: VIT B CMPLX 3/FA/VIT C/BIOTIN 1 TAB TABLET GT SCH (17:05)
[2022-04-15] MEDS: HEPARIN SODIUM, PORCINE 5000 UNITS/1 ML VIAL SQ SCH (17:05)
[2022-04-15] MEDS: GLUCERNA 1.2 1,000 ML BOTTLE GT PRN (18:29)
--- NOTE | 2022-04-15 18:55 | NUR ---
RN CLOSING NOTE PATIENT REMAINED STABLE THROUGHOUT SHIFT. TRACHEOSTOMY IN PLACE AND ATTACHED TO MECHANICAL VENTILATOR FOLLOWING PRESCRIBED SETTINGS. SUCTIONED TRACHEAL AND ORAL SECRETIONS NEEDED. SINUS RHYTHM ON CASINO CAGE MANAGER. LEFT UPPER ARM MIDLINE AND LEFT ANTECUBITAL IV LINE INTACT AND PATENT. DANIEL CATHETER AND G-TUBE INTACT. KEPT PATIENT ON ISOLATION AFTER HE TESTED POSITIVE FOR COVID. ALL HOSPITAL PRECAUTIONS IN PLACE. WILL ENDORSE TO PHLEBOTOMY SERVICES TECHNICIAN NURSE.
--- NOTE | 2022-04-15 19:30 | NUR ---
RN NOTE, RECEIVED PATIENT IN BED, ON MECHANICAL VENTILATOR TOLERATED SETTINGS WELL, SINUS RHYTHM ON EPIC INTERFACE ANALYST, WITH HR 90S-100S, LEFT UPPER ARM MIDLINE AND LEFT ANTECUBITAL IV LINE INTACT AND PATENT, IVF INFUSING ORDERED, PATIENT TOLERATED WELL, DANIEL CATHETER AND G-TUBE INTACT, NO RESIDUAL NOTED, POSITIVE COVID, ISOLATION PRECAUTIONS MAINTAINED AT ALL TIME, WILL CONTINUE TO MONITOR CLOSELY.
[2022-04-15 20:00] VITALS: BP 128/66
--- NOTE | 2022-04-15 20:10 | NUR ---
RT NOTE PT RECEIVED TRACHED ON MECHANICAL VENTILATION. CUFF CHECKED VIA FOREIGN EXCHANGE DEALER. PORTEX [address] AMBU BAG/BACK UP TRACH @ BEDSIDE. SUCTION DONE, TRACH SECURED AND PATENT. ALARMS ON AND AUDIBLE. VENT PLUGGED TO RED OUTLET. CONT. PULSE OX CONNECTED. Addendum: 04/15/22 at 2009 by CHELO SANDHU RT Amended: Links added.
[2022-04-15] MEDS: ATORVASTATIN 40 MG TABLET GT SCH (21:53)
[2022-04-15] MEDS: INSULIN GLARGINE, 100 UNIT/ML CARTRIDGE SQ SCH (23:18)
[2022-04-15] MEDS: INSULIN REGULAR, HUMAN 100 UNIT/ML 3 ML VIAL SQ PRN (23:19)
[2022-04-16] VITALS (13 sets, daily range): BP systolic 140–176; BP diastolic 73–88
[2022-04-16] MEDS: IV LR 1000 ML 1,000 ML IV SCH ×3 (02:05→20:53)
[2022-04-16] MEDS: ACETAMINOPHEN 325 MG TABLET PO PRN (02:07)
[2022-04-16] MEDS: BLOOD SUGAR DIAGNOSTIC 1 EACH STRIP IN SCH ×4 (05:46→23:06)
[2022-04-16] MEDS: INSULIN REGULAR, HUMAN 100 UNIT/ML 3 ML VIAL SQ PRN ×4 (05:47→23:07)
--- NOTE | 2022-04-16 05:47 | NUR ---
BLOOD SUGAR 112MG/DL AT THIS TIME AND PER SLIDING SCALE NO INSULIN ADMINISTERED.
--- NOTE | 2022-04-16 06:33 | NUR ---
RN CLOSING NOTE, RECEIVED PATIENT IN BED, CONTINUE ON MECHANICAL VENTILATOR TOLERATED SETTINGS WELL, SINUS RHYTHM ON DEODORIZER OPERATOR, WITH HR 90S-100S, LEFT UPPER ARM MIDLINE AND LEFT ANTECUBITAL IV LINE INTACT AND PATENT, IVF INFUSING ORDERED, TYLENOL GIVEN ONCE FOR FEVER LOGISTICS INTERN, OTHERWISE NO SIGNIFICANT CHANCE IN CONDITION, VITAL SIGNS STABLE, DANIEL CATHETER IN PLACED WITH GOOD OUTPUT, POSITIVE COVID, ISOLATION PRECAUTIONS MAINTAINED AT ALL TIME, WILL ENDORSE CONTINUITY OF CARE TO ONCOMING NURSE.
[2022-04-16 06:55] LABS: CALCIUM, SERUM 9.2 mg/dL (8.5-10.1); CREATININE 1.1 mg/dL (0.6-1.3); POTASSIUM 5.1 mmol/L (3.5-5.1)
--- NOTE | 2022-04-16 07:30 | NUR ---
RN OPENING NOTE PATIENT IS IN BED, OBTUNDED, NON VERBAL, EYES OPEN SPONTANEOUSLY. WITH TRACHEOSTOMY TO MECHANICAL VENTILATOR WITH THE FOLLOWING SETTINGS: AC MODE, RR 16, TV 450, FIO2 40% PEEP 5. SINUS RHYTHM ON HOME APPLIANCES MECHANIC. BREATHING UNLABORED AND NOT IN ANY FORM OF DISTRESS. WITH G-TUBE INTACT AND INFUSING WITH GLUCERNA 1,2 @ 60 ML/HR. WITH LEFT ANTECUBITAL LINE INFUSING WITH LR AT 100 ML/HR. WITH LEFT UPPER ARM MIDLINE SALINE LOCK INTACT AND PATENT. BED IS LOCKED IN LOWEST POSITION, 3 SIDE RAILS UP, CALL LIGHT WITHIN REACH. WILL CONTINUE TO MONITOR THROUGHOUT SHIFT.
[2022-04-16] MEDS: CHLORHEXIDINE GLUCONATE 15 ML UDC MM SCH ×2 (08:15→16:43)
[2022-04-16] MEDS: DOCUSATE SODIUM LIQ 100 MG/10 ML UDC GT SCH ×2 (08:15→16:42)
[2022-04-16] MEDS: LEVETIRACETAM SOL (5 ML) 100 MG/ML UDC GT SCH ×2 (08:15→21:23)
[2022-04-16] MEDS: PANTOPRAZOLE 40 MG/PACK PACK GT SCH (08:16)
[2022-04-16] MEDS: hydrALAZINE HCL 50 MG TABLET PO SCH ×3 (08:16→16:43)
[2022-04-16] MEDS: AMLODIPINE BESYLATE 10 MG TABLET GT SCH (08:16)
[2022-04-16] MEDS: LABETALOL HCL (100MG) 100 MG TABLET PO SCH ×2 (08:17→21:24)
[2022-04-16] MEDS: DEXAMETHASONE SOD PHOSPHATE 10 MG/ML VIAL IV SCH (08:17)
[2022-04-16] MEDS: HEPARIN SODIUM, PORCINE 5000 UNITS/1 ML VIAL SQ SCH ×2 (08:20→16:02)
[2022-04-16] MEDS: SILVER SULFADIAZINE CREAM 25 GM TUBE TP SCH (08:22)
[2022-04-16 09:31] LABS: BASOPHILS % (AUTO) 0.1 % (0.0-2.0); EOSINOPHILS % (AUTO) 0.1 % (0.0-6.0); HEMATOCRIT 21 % (39-51); LYMPHOCYTES # (AUTO) 1.8 K/uL (0.8-4.8); LYMPHOCYTES % (AUTO) 16.1 % (20.0-44.0); MEAN CORPUSCULAR HGB CONC 33 g/dl (31.0-36.0); MEAN CORPUSCULAR VOLUME 91 fL (80-96); MONOCYTES % (AUTO) 8.7 % (2.0-12.0); NEUTROPHILS # (AUTO) 8.6 K/uL (1.8-8.9); PLATELET COUNT (AUTO) 283 K/uL (150-450); RED BLOOD CELL COUNT(AUTO) 2.31 MIL/uL (4.5-6.0); WHITE BLOOD COUNT (AUTO) 11.5 K/uL (4.3-11.0)
[2022-04-16 10:07] LABS: HEMOGLOBIN 6.9 g/dL (13.5-17.5)
[2022-04-16 11:55] LABS: LYMPHOCYTES % (MANUAL) 16 % (16-48); MONOCYTES % (MANUAL) 6 % (0-11.0); NEUTROPHILS % (MANUAL) 78 (42-76)
[2022-04-16] MEDS: GLUCERNA 1.2 1,000 ML BOTTLE GT PRN (15:04)
--- NOTE | 2022-04-16 15:42 | NUR ---
RN NOTE TRANSFUSION OF 1 UNIT PRBC STARTED. WILL CONTINUE TO MONITOR.
--- NOTE | 2022-04-16 16:02 | NUR ---
RN NOTE HEPARIN NOT GIVEN, HGB AT 6.9.
[2022-04-16] MEDS: VIT B CMPLX 3/FA/VIT C/BIOTIN 1 TAB TABLET GT SCH (17:32)
--- NOTE | 2022-04-16 19:02 | NUR ---
RN CLOSING NOTE PATIENT REMAINED STABLE THROUGHOUT SHIFT. TRACHEOSTOMY IN PLACE AND ATTACHED TO MECHANICAL VENTILATOR FOLLOWING PRESCRIBED SETTINGS. SUCTIONED TRACHEAL AND ORAL SECRETIONS NEEDED. SINUS RHYTHM ON TRANSIT MIXER OPERATOR. LEFT UPPER ARM MIDLINE AND LEFT ANTECUBITAL IV LINE INTACT AND PATENT. DANIEL CATHETER AND G-TUBE INTACT. ALL HOSPITAL PRECAUTIONS IN PLACE. WILL ENDORSE TO GAS SYSTEMS WORKER NURSE.
--- NOTE | 2022-04-16 19:02 | NUR ---
RN NOTE TRANSFUSION ENDED. NO UNTOWARD REACTION NOTED.
--- NOTE | 2022-04-16 19:45 | NUR ---
RN OPENING NOTES, RECEIVED PATIENT IN BED, OBTUNDED, NON VERBAL, OPEN BOTH EYES. ON TRACH TO MECHANICAL VENTILATOR SETTING AND PT TOLERATED WELL. AC 16, TV 450, FIO2 40% PEEP 5. BREATHING UNLABORED. IV ACCESS ON LAC #20G AND RUDY MIDLINE INTACT AND PATENT. NO S/S OF INFILTRATIONS. RUNNING LR AT 100CC/HR. NO FACIAL GRIMACING NOTED. NO ACUTE DISTRESS. G-TUBE WELL TOLERATED. ON GLUCERNA 1.2 @ 60 ML/HR. DANIEL CATHETER INTACT IN PLACE, RUNNING BY GRAVITY. NOTED YELLOWISH/CLEAR URINE. ALL SAFETY MEASURES IN PLACE. BED IN LOWEST POSITION AND LOCKED, SIDE RAILS UP X3, PLACE CALL LIGHT WITHIN REACH. WILL CONTINUE TO MONITOR.
[2022-04-16] MEDS: ATORVASTATIN 40 MG TABLET GT SCH (21:23)
[2022-04-16] MEDS: INSULIN GLARGINE, 100 UNIT/ML CARTRIDGE SQ SCH (22:54)
--- NOTE | 2022-04-16 23:13 | NUR ---
RN NOTES: PT'S BLOOD SUGAR 115. LANTUS 15 UNITS GIVEN BUT NO COVERAGE FOR REGULAR INSULIN. NO S/S OF HYPER/HYPOGLYCEMIA. WILL CONTINUE TO MONITOR
[2022-04-17] VITALS: BP 175/84
[2022-04-17] MEDS: hydrALAZINE HCL IV 20 MG VIAL IV PRN (00:42)
--- NOTE | 2022-04-17 00:53 | NUR ---
RN NOTES: PT'S BLOOD PRESSURE 175/84, PULSE- 73. HYDRALAZINE 0.5 ML GIVEN PER PRN ORDER. PT TOLERATED WELL. WILL CONTINUE TO MONITOR
[2022-04-17 04:00] VITALS: BP 163/88
[2022-04-17] MEDS: BLOOD SUGAR DIAGNOSTIC 1 EACH STRIP IN SCH ×2 (05:47→11:38)
[2022-04-17] MEDS: INSULIN REGULAR, HUMAN 100 UNIT/ML 3 ML VIAL SQ PRN ×2 (05:48→11:38)
--- NOTE | 2022-04-17 05:48 | NUR ---
RN NOTES: PT'S BLOOD SUGAR 86. NO COVERAGE NEEDED. NO S/S OF HYPER/HYPOGLYCEMIA. WILL CONTINUE TO MONITOR
--- NOTE | 2022-04-17 06:38 | NUR ---
RN CLOSING NOTES, PATIENT IN BED, OBTUNDED, NON VERBAL, OPEN BOTH EYES. ON TRACH TO MECHANICAL VENTILATOR SETTING AND PT TOLERATED WELL. AC 16, TV 450, FIO2 40% PEEP 5. O2 SAT 100%. BREATHING EVEN AND UNLABORED. IV ACCESS ON LAC #20G AND RUDY MIDLINE INTACT AND PATENT. NO S/S OF INFILTRATIONS. RUNNING LR AT 100CC/HR. NO FACIAL GRIMACING NOTED. NO ACUTE DISTRESS. G-TUBE FEEDING WELL TOLERATED. ON GLUCERNA 1.2 @ 60 ML/HR. DANIEL CATHETER INTACT IN PLACE, RUNNING BY GRAVITY. NOTED YELLOWISH/CLEAR URINE. ALL DUE MEDS GIVEN ORDERED. ALL SAFETY MEASURES IN PLACE. BED IN LOWEST POSITION AND LOCKED, SIDE RAILS UP X3, PLACE CALL LIGHT WITHIN REACH. WILL ENDORSE TO MORNING SHIFT NURSE.
[2022-04-17 07:03] LABS: BASOPHILS % (AUTO) 0.2 % (0.0-2.0); EOSINOPHILS % (AUTO) 0.3 % (0.0-6.0); HEMATOCRIT 25 % (39-51); HEMOGLOBIN 8.7 g/dL (13.5-17.5); LYMPHOCYTES # (AUTO) 2.1 K/uL (0.8-4.8); LYMPHOCYTES % (AUTO) 15.5 % (20.0-44.0); MEAN CORPUSCULAR HGB CONC 35 g/dl (31.0-36.0); MEAN CORPUSCULAR VOLUME 90 fL (80-96); MONOCYTES # (AUTO) 1.4 K/uL (0.1-1.30); MONOCYTES % (AUTO) 10.3 % (2.0-12.0); NEUTROPHILS % (AUTO) 73.7 % (43.0-81.0); PLATELET COUNT (AUTO) 318 K/uL (150-450); RED BLOOD CELL COUNT(AUTO) 2.78 MIL/uL (4.5-6.0); WHITE BLOOD COUNT (AUTO) 13.6 K/uL (4.3-11.0)
[2022-04-17 07:14] LABS: CALCIUM, SERUM 9.2 mg/dL (8.5-10.1); POTASSIUM 4.2 mmol/L (3.5-5.1)
--- NOTE | 2022-04-17 07:51 | NUR ---
RN OPENING NOTE PATIENT IS IN BED, NON VERBAL, EYES OPEN SPONTANEOUSLY. WITH TRACHEOSTOMY TO MECHANICAL VENTILATOR WITH THE FOLLOWING SETTINGS: AC MODE, RR 16, TV 450, FIO2 40% PEEP 5. SINUS RHYTHM ON CONCRETE TRUCK DRIVER. BREATHING UNLABORED AND NOT IN ANY FORM OF DISTRESS. WITH G-TUBE INTACT AND INFUSING WITH GLUCERNA 1,2 @ 60 ML/HR. WITH LEFT ANTECUBITAL LINE INFUSING WITH LR AT 100 ML/HR. WITH LEFT UPPER ARM MIDLINE SALINE LOCK INTACT AND PATENT. BED IS LOCKED IN LOWEST POSITION, 3 SIDE RAILS UP, CALL LIGHT WITHIN REACH.
[2022-04-17 08:00] VITALS: BP 179/86
[2022-04-17] MEDS: DOCUSATE SODIUM LIQ 100 MG/10 ML UDC GT SCH (09:00)
[2022-04-17] MEDS: HEPARIN SODIUM, PORCINE 5000 UNITS/1 ML VIAL SQ SCH (09:00)
[2022-04-17] MEDS: CHLORHEXIDINE GLUCONATE 15 ML UDC MM SCH (09:29)
[2022-04-17] MEDS: IV LR 1000 ML 1,000 ML IV SCH (09:29)
[2022-04-17] MEDS: LEVETIRACETAM SOL (5 ML) 100 MG/ML UDC GT SCH (09:29)
[2022-04-17] MEDS: AMLODIPINE BESYLATE 10 MG TABLET GT SCH (09:30)
[2022-04-17] MEDS: hydrALAZINE HCL 50 MG TABLET PO SCH ×2 (09:30→13:13)
[2022-04-17] MEDS: PANTOPRAZOLE 40 MG/PACK PACK GT SCH (09:30)
[2022-04-17] MEDS: LABETALOL HCL (100MG) 100 MG TABLET PO SCH (09:31)
[2022-04-17] MEDS: DEXAMETHASONE SOD PHOSPHATE 10 MG/ML VIAL IV SCH (09:31)
[2022-04-17] MEDS: SILVER SULFADIAZINE CREAM 25 GM TUBE TP SCH (09:34)
[2022-04-17] MEDS: GLUCERNA 1.2 1,000 ML BOTTLE GT PRN (09:38)
[2022-04-17] MEDS ORDERED: THERAHONEY GEL 1.5 OZ TUBE TP SCH (10:00)
--- NOTE | 2022-04-17 13:00 | NUR ---
RN NOTE PATIENT TAKEN BUY 3 DRIVER MEDIC/PARAMEDICAS IN STABLE CONDITION BACK TO [facility]. REPORT CALLED IN.
[2022-04-17 13:13] VITALS: BP 164/81
== END 2022-04-17 13:30 | DRG 710 ==
LOC: ER 00:14 → TRANSITION 02:43 → TELE-TD 07:56 → TELE1 04-01 09:45
PROVIDERS: ADMIT Registered Nurse
PROC: 5A1955Z Respiratory Ventilation, Greater than 96 Consecutive Hours (ICD-10-PCS; principal; 2022-03-30)
PROC: 30233N1 Transfusion of Nonautologous Red Blood Cells into Peripheral Vein, Percutaneous Approach (ICD-10-PCS; 2022-03-31)
PROC: 05HD33Z Insertion of Infusion Device into Right Cephalic Vein, Percutaneous Approach (ICD-10-PCS; 2022-04-01)
PROC: 05HA33Z Insertion of Infusion Device into Left Brachial Vein, Percutaneous Approach (ICD-10-PCS; 2022-04-10)
PROC: 0KBN0ZZ Excision of Right Hip Muscle, Open Approach (ICD-10-PCS; 2022-04-15)
PROC: 0KBP0ZZ Excision of Left Hip Muscle, Open Approach (ICD-10-PCS; 2022-04-15)
DX: A41.59 Other Gram-negative sepsis (principal); J96.20 Acute and chronic respiratory failure, unspecified whether with hypoxia or hypercapnia; R65.21 Severe sepsis with septic shock; N17.0 Acute kidney failure with tubular necrosis; U07.1 COVID-19; G93.41 Metabolic encephalopathy; L89.154 Pressure ulcer of sacral region, stage 4; J15.9 Unspecified bacterial pneumonia; R53.2 Functional quadriplegia; E87.2 Acidosis; R18.8 Other ascites; Z99.11 Dependence on respirator [ventilator] status; Z93.0 Tracheostomy status; E86.1 Hypovolemia; E88.09 Other disorders of plasma-protein metabolism, not elsewhere classified; N39.0 Urinary tract infection, site not specified; Z20.822 Contact with and (suspected) exposure to COVID-19; Z93.1 Gastrostomy status; N18.2 Chronic kidney disease, stage 2 (mild); I12.9 Hypertensive chronic kidney disease with stage 1 through stage 4 chronic kidney disease, or unspecified chronic kidney disease; E11.22 Type 2 diabetes mellitus with diabetic chronic kidney disease; K57.90 Diverticulosis of intestine, part unspecified, without perforation or abscess without bleeding; E78.5 Hyperlipidemia, unspecified; E66.01 Morbid (severe) obesity due to excess calories; Z68.36 Body mass index [BMI] 36.0-36.9, adult; K52.9 Noninfective gastroenteritis and colitis, unspecified; K80.20 Calculus of gallbladder without cholecystitis without obstruction; N21.0 Calculus in bladder; D63.8 Anemia in other chronic diseases classified elsewhere; R13.10 Dysphagia, unspecified; Y95 Nosocomial condition
CPT/HCPCS: 31720; 36410; 36415; 71045-TC; 74018; 76770-TC; 80048-TC; 80053-TC; 80076-TC; 80202-TC; 81001; 82272-TC; 82570-TC; 82607-TC; 82728-TC; 82962-TC; 83540-TC; 83605-TC; 83735-TC; 84100-TC; 84300-TC; 84484-TC; 85025-TC; 85378-TC; 85730-TC; 86140-TC; 86850-TC; 87040-TC; 87086-TC; 87186-TC; 94002-TC; 94003-TC; 94760-TC; 94762-TC; 94799-TC; 99082-TC; A4623; A6253; A6403; A7526; C9803; G0378; J0360; J0692; J0696; J1100; J1644; J1815; J1953; J2185; J2405; J2543; J3370; J3475; J3490; J7030; J7050; J7060; J7070; J7120; P9016

== ENCOUNTER 2022-06-15 15:00 | Inpatient (IN) | payer MEDICAID, OTHER ==
[~2022-06-15] VITALS: Ht 170.2 cm; Wt 87.5 kg
[~2022-06-15 15:00] MED LIST: ACET-2605 GT; ACET-868 GT; ATOR40TA GT; BISA10SU11 RC; CHLO473M5 MM; CLON0.1T GT; FOLI0.8T23 GT; HYDR100T27 GT; INSU100V30 SQ; INSU100V7 SQ; IPRA4AER IH; LABE100T5 GT; LEVE500T9 GT; MAGN400O6 GT; NA P133E RC; NUT.237L31 GT
--- NOTE | 2022-06-15 15:20 | NUR ---
RT Received trach patient on vent settings provided by transport RT: AC 12 550 40% +5. Trach secured and patent. Suctioned thick hugo, blood tinged secretions. Ambu bag and back up trach (Portex 8 cuffed) at bedside. Vent plugged into red outlet with alarms on and audible. No SOB or respiratory distress noted at this time.
--- NOTE | 2022-06-15 15:26 | NUR ---
insurance is [facility] direct
--- NOTE | 2022-06-15 16:00 | NUR ---
PT PUT ON VENT BY RT
--- NOTE | 2022-06-15 16:26 | NUR ---
20G STARTED ON RIGHT HAND SALINE FLUSH WITH EASE. LABS COLLECTED AND SEND WITH LAB
[2022-06-15 16:45] LABS: BASOPHILS % (AUTO) 0.2 % (0.0-2.0); EOSINOPHILS % (AUTO) 3.6 % (0.0-6.0); LYMPHOCYTES # (AUTO) 2.2 K/uL (0.8-4.8); LYMPHOCYTES % (AUTO) 8.7 % (20.0-44.0); MEAN CORPUSCULAR HGB CONC 34 g/dl (31.0-36.0); MEAN CORPUSCULAR VOLUME 96 fL (80-96); MONOCYTES # (AUTO) 2.1 K/uL (0.1-1.30); MONOCYTES % (AUTO) 8.3 % (2.0-12.0); NEUTROPHILS # (AUTO) 19.6 K/uL (1.8-8.9); NEUTROPHILS % (AUTO) 79.2 % (43.0-81.0); PLATELET COUNT (AUTO) 183 K/uL (150-450); WHITE BLOOD COUNT (AUTO) 24.8 K/uL (4.3-11.0)
[2022-06-15 16:46] LABS: CARBON DIOXIDE 32 mmol/L (21-32); CHLORIDE 95 mmol/L (98-107); CREATININE 2.1 mg/dL (0.6-1.3); GLUCOSE 103 mg/dL (74-106); POTASSIUM 3.2 mmol/L (3.5-5.1); SODIUM SERUM 135 mmol/L (136-145); UREA NITROGEN, BLOOD 63 mg/dL (7-18)
[2022-06-15 16:52] LABS: ALANINE AMINOTRANSFERASE 16 U/L (12-78); ALBUMIN 2.7 g/dL (3.4-5.0); ALKALINE PHOSPHATASE 95 U/L (46-116); ASPARTATE AMINOTRANSFERASE 25 U/L (15-37); BILIRUBIN,DIRECT 0.2 mg/dL (0.0-0.2); BILIRUBIN,TOTAL 0.8 mg/dL (0.2-1.0); TOTAL PROTEIN, SERUM 7.7 g/dL (6.4-8.2)
[2022-06-15 16:55] LABS: RED BLOOD CELL COUNT(AUTO) 1.79 MIL/uL (4.5-6.0)
[2022-06-15 17:00] LABS: HEMATOCRIT 17 % (39-51); HEMOGLOBIN 5.8 g/dL (13.5-17.5)
[2022-06-15] MEDS ORDERED: ZINC1CAP3 GT (17:27)
[2022-06-15] MEDS ORDERED: PANT40SU2 GT (17:27)
[2022-06-15] MEDS ORDERED: MULT-447 GT (17:27)
[2022-06-15] MEDS ORDERED: CRAN3875 GT (17:27)
[2022-06-15] MEDS ORDERED: ASCO-340 GT (17:27)
[2022-06-15] MEDS ORDERED: AMLO-213 GT (17:27)
[2022-06-15] MEDS ORDERED: POLY17PO4 GT (17:27)
--- NOTE | 2022-06-15 17:39 | NUR ---
[facility] CALLED SMUTTER PAGED.
[2022-06-15 18:19] LABS: BAND % (MANUAL) 1 % (0.0-5.0); EOSINOPHILS % (MANUAL) 5 % (0-4); LYMPHOCYTES % (MANUAL) 11 % (16-48); MONOCYTES % (MANUAL) 5 % (0-11.0); NEUTROPHILS % (MANUAL) 78 (42-76)
--- NOTE | 2022-06-15 18:45 | NUR ---
1845 initiated 1 unit for blood trasfusion
--- NOTE | 2022-06-15 19:07 | NUR ---
blood trasfusion running pt toloration well no adverse reations
--- NOTE | 2022-06-15 19:40 | NUR ---
RECEIVED PT IN ROOM 8. PT IS AAOX0. TRACHE/VENT: SETTINGS VT550, RR12, PEEP 5, FiO2 40%. GTUBE AND DANIEL CATH NOTED IN PLACE. IV NOTED ON RHAND 20G, PATENT AND INTACT. PT RECEIVING BLOOD TRANSFUSION @200ML/HR, TOLERATING WELL. CONSENT IN PTS CHART. WILL CONTINUE TO MONITOR
--- NOTE | 2022-06-15 19:41 | NUR ---
URINE COLLECTED AND SENT TO LAB
--- NOTE | 2022-06-15 19:46 | NUR ---
EPIC CALLED TO PAGE PANEL
[2022-06-15] MEDS ORDERED: ALBUTEROL FS 2.5 MG/3 ML VIAL.NEB NEB PRN (20:00)
[2022-06-15] MEDS ORDERED: GLUCERNA 1.5 1,000 ML BOTTLE GT SCH (20:00)
[2022-06-15] MEDS ORDERED: MAGNESIUM HYDROXIDE 30 ML UDC GT PRN (20:00)
[2022-06-15] MEDS ORDERED: ACETAMINOPHEN ES 500 MG TABLET GT PRN (20:00)
[2022-06-15] MEDS ORDERED: DEXTROSE 50%-WATER 50 ML DISP.SYRIN IV PRN (20:30)
--- NOTE | 2022-06-15 20:33 | NUR ---
BED 113-1
[2022-06-15 20:49] LABS: BILIRUBIN,URINE NEGATIVE (NEGATIVE); COLOR,URINE YELLOW (YELLOW); LEUKOCYTE ESTERASE ,URINE LARGE (NEGATIVE); NITRITE, URINE NEGATIVE (NEGATIVE); PH,URINE 5.5 (5.0-8.0); PROTEIN,URINE 30 mg/dl (NEGATIVE); UGLUCOSE NEGATIVE (NEGATIVE); UROBILINOGEN,URINE 0.2 EU/dL (0.2)
[2022-06-15 21:00] LABS: BACTERIA,URINE 2+ /HPF (None Seen); RBC,URINE 0-2 /HPF (0-2); SQUAMOUS EPITHELIAL CELL,UR 0-2 /HPF (None Seen); WBC,URINE 81-100 /HPF (0-3)
[2022-06-15] MEDS ORDERED: MEROPENEM 500 MG in IV NS 0.9% 50 ML IV SCH (21:00)
--- NOTE | 2022-06-15 21:03 | NUR ---
REPORT GIVEN TO VIJAY PARKS FOR ANKUR
--- NOTE | 2022-06-15 21:40 | NUR ---
EYE SURGEON NOTE RECEIVED PATIENT VIA GURNEY FROM ER, PT NON VERBAL OBTUNDED ON MECHANICAL VENT, TOLERATING WELL, NO S/S OF ACUTE DISTRESS. TELE MONITORING READING SR, IV ACCESS ON R HAND #20G, INTACT AND PATENT. PATIENT HAS A GENERALIZED RASH EVERYWHERE. LEFT HEEL ULCER, AND SACRAL WOUND. PICTURES TAKEN AND PLACED IN CHART. VSS. ALL SAFETY MEASURES IN PLACE. BED LOCKED IN LOWEST POSITIONS, SIDE RAILX2. WILL CONTINUE TO MONITOR THROUGHOUT SHIFT.
--- NOTE | 2022-06-15 21:40 | NUR ---
DIE TRIMMER NOTE RECEIVED PATIENT VIA GURNEY FROM ER, PT NON VERBAL OBTUNDED ON MECHANICAL VENT, TOLERATING WELL, NO S/S OF ACUTE DISTRESS. TELE MONITORING READING SR, IV ACCESS ON R HAND #20G, INTACT AND PATENT. G TUBE PRESENT, INTACT AND PATENT. NO FEEDING ORDERED, WILL GET DIETARY CONSULT. PATIENT HAS A GENERALIZED RASH EVERYWHERE. LEFT HEEL ULCER, AND SACRAL WOUND. PICTURES TAKEN AND PLACED IN CHART. VSS. ALL SAFETY MEASURES IN PLACE. BED LOCKED IN LOWEST POSITIONS, SIDE RAILX2. WILL CONTINUE TO MONITOR THROUGHOUT SHIFT.
--- NOTE | 2022-06-15 21:41 | NUR ---
PT TRANSFERRED TO [facility] VIA ACLS PROTOCOL WITH RT. VSS. ALL BELONGINGS WITH PT.
[2022-06-15] MEDS ORDERED: VANCOMYCIN 1.75 GM in IV D5W 500 ML IV ONE (22:00)
[2022-06-15] MEDS: ATORVASTATIN 40 MG TABLET GT SCH (22:29)
[2022-06-15] MEDS: hydrALAZINE HCL 25 MG TABLET GT SCH (22:30)
[2022-06-15] MEDS: LEVETIRACETAM SOL (5 ML) 100 MG/ML UDC GT SCH (22:30)
[2022-06-15] MEDS: PANTOPRAZOLE 40 MG VIAL IV SCH (22:31)
--- NOTE | 2022-06-15 22:35 | NUR ---
RN NOTE WOUND CONSULT AND DIETARY CONSULT ORDERED FOR PATIENT
[2022-06-15] MEDS ORDERED: MEROPENEM 500 MG VIAL IV ONE (22:51)
[2022-06-15] MEDS ORDERED: VANCOMYCIN 1 GM VIAL ONE (22:53)
[2022-06-15] MEDS: INSULIN GLARGINE, 100 UNIT/ML CARTRIDGE SQ SCH (22:59)
--- NOTE | 2022-06-15 23:00 | NUR ---
RN NOTE PER CHARGE NURSE HOLD INSULIN LANTUS BS 99 AND NO TUBE FEEDING AT THIS TIME
[2022-06-15] MEDS: BLOOD SUGAR DIAGNOSTIC 1 EACH STRIP IN SCH (23:41)
[2022-06-16] VITALS: BP_SYST 114; BP_SYST 137; BP_DIAS 55; BP_DIAS 84
[2022-06-16 04:00] VITALS: BP 107/64
[2022-06-16] MEDS: hydrALAZINE HCL 25 MG TABLET GT SCH ×3 (05:00→21:21)
--- NOTE | 2022-06-16 05:28 | NUR ---
RN NOTE HYDRALAZINE HELD FOR BP OF 107/64 PER CHARGE NURSE
[2022-06-16] MEDS: INSULIN REGULAR, HUMAN 100 UNIT/ML 3 ML VIAL SQ PRN ×2 (05:35→23:16)
[2022-06-16] MEDS: BLOOD SUGAR DIAGNOSTIC 1 EACH STRIP IN SCH ×4 (05:35→23:15)
[2022-06-16 06:40] LABS: BASOPHILS % (AUTO) 0.1 % (0.0-2.0); EOSINOPHILS % (AUTO) 6.2 % (0.0-6.0); LYMPHOCYTES # (AUTO) 2.3 K/uL (0.8-4.8); LYMPHOCYTES % (AUTO) 9.9 % (20.0-44.0); MEAN CORPUSCULAR HGB CONC 33 g/dl (31.0-36.0); MEAN CORPUSCULAR VOLUME 95 fL (80-96); MONOCYTES # (AUTO) 1.7 K/uL (0.1-1.30); MONOCYTES % (AUTO) 7.6 % (2.0-12.0); NEUTROPHILS # (AUTO) 17.5 K/uL (1.8-8.9); NEUTROPHILS % (AUTO) 76.2 % (43.0-81.0); PLATELET COUNT (AUTO) 178 K/uL (150-450); RED BLOOD CELL COUNT(AUTO) 2.09 MIL/uL (4.5-6.0)
[2022-06-16 06:51] LABS: HEMATOCRIT 20 % (39-51); HEMOGLOBIN 6.5 g/dL (13.5-17.5)
--- NOTE | 2022-06-16 06:51 | NUR ---
RN NOTE CRITICAL LAB VALUE OF 6.5 HGB, AND HCT 20. WILL NOTIFY
--- NOTE | 2022-06-16 06:56 | NUR ---
CANOE INSPECTOR FINAL CLOSING NOTE PT IN BED AWAKE, ON MECHANICAL VENT, TOLERATING SETTING WELL, NO S/S OF ACUTE DISTRESS. TELE MONITOR READING SR HR 98 , IV ACCESS RHAND #20G, INTACT AND PATENT. DANIEL CATHETER IN PLACE DRAINING CLEAR YELLOW/ALFONSO URINE IN THE AMOUNT , GTUBE INTACT AND PATENT. ALL DUE MEDS GIVEN EXCEPT HYDRALAZINE SEE NOTE, ALL SAFETY MEASURES IN PLACE, BED LOCKED IN LOWEST POSITION. WILL ENDORSE TO MORNING SHIFT.
[2022-06-16 06:59] LABS: POTASSIUM 3.1 mmol/L (3.5-5.1)
--- NOTE | 2022-06-16 07:33 | NUR ---
CORRESPONDENCE SECTION SUPERVISOR OPENING NOTES: RECEIVED PATIENT IN BED, ASLEEP BUT RESPONDS TO VOICE AND TACTILE STIMULI. PATIENT IS OBTUNDED. ON MECHANICAL VENT WITH PORTEX # 8, WITH VENT SETTING FOLLOWS: AC, 12, TV 550, FI02 40%, PEEP 5, WITH OXYGEN SATURATION OF 99%. ON SR ON TELE MONITOR WITH HR OF 93. NO SOB NOTED, BREATHING EVEN AND UNLABORED. IV ACCESS INTACT ON RIGHT HAND, PATENT AND FLUSHES WELL, NO S/S INFILTRATION NOTED. DANIEL CATHETER INTACT, DRAINING WITH YELLOW COLORED URINE, NO HEMATURIA AND NO NO SEDIMENTATION NOTED. HOB KEPT ELEVATED. BED LOCKED AND IN LOWEST POSITION,. CALL LIGHT WITHIN REACH. ALL SAFETY MEASURES IMPLEMENTED. WILL CONTINUE TO MONITOR PATIENT THROUGHOUT SHIFT.
[2022-06-16 08:00] VITALS: BP 90/56
--- NOTE | 2022-06-16 08:05 | NUR ---
DR COHEN NOTIFIED OF PATIENT'S HEMOGLOBIN RESULT OF 6.5 AND HEMATOCRIT OF 20, AWAITING FURTHER ORDERS
[2022-06-16] MEDS ORDERED: GLUCERNA 1.5 1,000 ML BOTTLE GT SCH (08:22)
[2022-06-16] MEDS: AMLODIPINE BESYLATE 10 MG TABLET GT SCH (08:47)
[2022-06-16] MEDS: LABETALOL HCL (100MG) 100 MG TABLET GT SCH ×2 (08:52→21:22)
[2022-06-16] MEDS: MULTIVITAMINS,THERAGRAN 1 UDTAB TABLET GT SCH (08:56)
[2022-06-16] MEDS: ASCORBIC ACID 500 MG TABLET GT SCH (08:56)
[2022-06-16] MEDS: CHLORHEXIDINE GLUCONATE 15 ML UDC MM SCH ×2 (08:56→16:41)
[2022-06-16] MEDS: ZINC SULFATE 220 MG CAPSULE GT SCH (08:56)
[2022-06-16] MEDS: PANTOPRAZOLE 40 MG VIAL IV SCH ×2 (08:56→21:20)
[2022-06-16] MEDS: VIT B CMPLX 3/FA/VIT C/BIOTIN 1 TAB TABLET GT SCH (08:56)
[2022-06-16] MEDS: LEVETIRACETAM SOL (5 ML) 100 MG/ML UDC GT SCH ×2 (08:57→21:22)
[2022-06-16] MEDS ORDERED: MEROPENEM 500 MG in IV NS 0.9% 50 ML IV SCH (09:00)
[2022-06-16] MEDS: MEROPENEM 1 G in IV NS 0.9% 100 ML IV SCH ×2 (09:03→21:33)
[2022-06-16] MEDS: ACETAMINOPHEN 325 MG TABLET MC PRN ×4 (09:12→21:31)
[2022-06-16] MEDS: IV NS 0.9% 1,000 ML IV SCH ×2 (09:30→21:55)
--- NOTE | 2022-06-16 10:04 | NUR ---
WOUND CARE CONSULT: PT PRESENTS WITH ALL OVER BODY RASH/SKIN CONDITION, LEFT HEEL ESCHAR AND SACRAL SCARRING/THICKENED SKIN/ESCHAR, ALL PRESENT ON ADMISSION. RECOMMENDATIONS MADE FOR SKIN PROTECTION. DISCUSSED WITH NURSING STAFF. DR ALEGRIA AND DR VÁZQUEZ CALLED FOR SURGICAL AND DPM CONSULTS. DEFER TO PMD FOR GENERALIZED SKIN CONDITION. FIRST STEP LOW AIRLOSS MATTRESS IS ON ORDER. MD IN AGREEMENT WITH PLAN OF CARE.
--- NOTE | 2022-06-16 10:08 | NUR ---
STOOL SAMPLE OBTAINED AND PLACED IN THE REFRIGERATOR, CALLED LAB, SPOKE MILES RENEE TO RAMP BOSS THE SAMPLE
[2022-06-16] MEDS: Z GUARD REMEDY 4 OZ OINT TP SCH (10:30)
[2022-06-16] MEDS: POTASSIUM CL. PREMIX PERIPHER. 50 ML IV SCH ×4 (10:50→13:41)
[2022-06-16] MEDS ORDERED: PERMETHRIN 5% CRM 60 GM TUBE TP ONE (11:30)
[2022-06-16 11:55] LABS: OCCULT BLOOD STOOL NEGATIVE (NEGATIVE)
[2022-06-16 12:00] VITALS: BP 126/67
[2022-06-16] MEDS: Z GUARD REMEDY 4 OZ OINT TP PRN ×3 (12:14→12:50)
--- NOTE | 2022-06-16 15:32 | NUR ---
NOTIFIED DR. COHEN THAT THE BLOOD TRANSFUSION HAS NOT BEEN STARTED YET ON THE PATENT DUE TO PATIENT HAS BEEN HAVING FEVER. ALREADY GAVE TYLENOL ORDERED @ 0912 AND 1324 RESPECTIVELY AND LATEST TEMP IS STILL 99.3. DOCTOR ORDERED TO GIVE IF FEVER COMES DOWN WITH TYLENOL. WILL CONTINUE TO MONITOR PATIENT'S TEMP.
[2022-06-16 16:00] VITALS: BP 92/52
--- NOTE | 2022-06-16 16:51 | NUR ---
RECHECKED PATIENT'S TEMP AND IT IS 99.5. COOLING MEASURES PROVIDED FOR THE PATIENT.
--- NOTE | 2022-06-16 17:30 | NUR ---
TYLENOL 650 MG VIA G-TUBE GIVEN FOR TEMP OF 100.1, POSITIONED PATIENT FOR COMFORT.
--- NOTE | 2022-06-16 18:01 | NUR ---
RECEIVED DELIVERY OF AIR MATTRESS TODAY BUT WAS NOT ABLE TO ASSEMBLE FOR THE PATIENT, WILL ENDORSE TO INCOMING NURSE.
--- NOTE | 2022-06-16 18:42 | NUR ---
CLINICAL TRIAL MANAGER CLOSING NOTES: PATIENT IN BED, ASLEEP BUT RESPONDS TO VOICE AND SOUND. PATIENT IS OBTUNDED. ON MECHANICAL VENT WITH PORTEX # 8, WITH VENT SETTING FOLLOWS: AC, 12, TV 550, FI02 40%, PEEP 5, WITH OXYGEN SATURATION OF 100%. SR WITH HR OF 82 ON TELE MONITOR. NO RESPIRATORY DISTRESS NOTED, NO SOB NOTED. IV ACCESS ON RIGHT HAND INTACT, RUNNING WITH NS @ 75 ML/HR., NO S/S INFILTRATION NOTED. G-TUBE FEEDING OF GLUCERNA 1.5 RUNNING @ 60 ML/HR, G-TUBE INTACT, NO RESIDUAL, IN PLACE AND FLUSHES WELL. DANIEL CATHETER INTACT, EMPTIED 450 ML OF DARK YELLOW COLORED URINE, NO HEMATURIA AND NO NO SEDIMENTATION NOTED. HOB KEPT ELEVATED. BED LOCKED AND IN LOWEST POSITION,. CALL LIGHT WITHIN REACH. ALL SAFETY MEASURES IMPLEMENTED. UNABLE TO GIVE BLOOD TRANSFUSION, PATIENT'S LATEST TEMP WAS 99.5. WILL ENDORSE TO NEXT SHIFT NURSE FOR CONTINUITY OF CARE.
[2022-06-16 19:15] LABS: BAND % (MANUAL) 1 % (0.0-5.0); EOSINOPHILS % (MANUAL) 9 % (0-4); LYMPHOCYTES % (MANUAL) 11 % (16-48); MONOCYTES % (MANUAL) 3 % (0-11.0); NEUTROPHILS % (MANUAL) 76 (42-76)
[2022-06-16 20:00] VITALS: BP 124/66
--- NOTE | 2022-06-16 20:02 | NUR ---
RN OPENING/RECEIVING NOTE (PATIENT WAS GIVEN FROM DAY SHIFT TO DEPARTMENT OF NATURAL RESOURCES OFFICER RNMACO. CHARGE NURSE, DEEJAY, MADE A CHANGE IN ASSIGNMENTS. PATIENT IS NOW UNDER THIS RN'S CARE.) PATIENT ASLEEP IN BED. OBTUNDED. NO S/S OF DISTRESS; BREATHING WITHOUT DIFFICULTY ON VENT. R-HAND #20 INTACT AND PATENT W/ NS 75ML. TELE READS SR 83. GLUCERNA 60ML/HR. SAFETY MEASURES IN PLACE: BED LOCKED IN PLACE AND AT LOWEST POSITION, RAILS UP X2, CALL BEL WITHIN REACH. PATIENT HAS AN H/H OF 6.5/20. PATIENT CURRENTLY RUNNING A FEVER 100.1; PATIENT WAS GIVEN TYLENOL, ROOM COOLER, ICE PACKS PLACED UNDER ARMS BILAT. PATIENT CANNOT RECEIVE TRANSFUSION UNTIL FEVER SUBSIDES. WILL CONTINUE TO MONITOR PATIENT.
[2022-06-16] MEDS: INSULIN GLARGINE, 100 UNIT/ML CARTRIDGE SQ SCH (21:32)
[2022-06-16] MEDS: ATORVASTATIN 40 MG TABLET GT SCH (21:33)
[2022-06-17] VITALS: BP 124/66
[2022-06-17] MEDS ORDERED: VANCOMYCIN 1.25 GM in IV D5W 250 ML IV SCH (01:00)
--- NOTE | 2022-06-17 03:05 | NUR ---
RN NOTE LAB CALLED WITH BLOOD AEROBIC BOTTLE POSITIVE FOR GRAM POSITIVE COCCI. PATIENT ALREADY ON MERREM AND VANCO. ON-CALL MDBAY, NOTIFIED. PER MD, NO NEW ORDERS. PATIENT STABLE; WILL CONTINUE MONITORING PATIENT.
[2022-06-17 04:22] VITALS: BP 100/66
[2022-06-17] MEDS: BLOOD SUGAR DIAGNOSTIC 1 EACH STRIP IN SCH ×4 (05:31→23:08)
[2022-06-17] MEDS: INSULIN REGULAR, HUMAN 100 UNIT/ML 3 ML VIAL SQ PRN ×2 (05:31→23:09)
[2022-06-17] MEDS: hydrALAZINE HCL 25 MG TABLET GT SCH ×3 (05:56→21:36)
--- NOTE | 2022-06-17 06:44 | NUR ---
RN CLOSING NOTE PATIENT ASLEEP IN BED. OBTUNDED, NON-VERBAL. NO S/S OF DISTRESS, BREATHING WITHOUT DIFFICULTY ON VENT. R-HAND #20 INTACT AND PATENT W/ NS 75ML/HR. TELE READS SR 85. GLUCERNA 60ML/HR. SAFETY MEASURES IN PLACE: BED LOCKED AND AT LOWEST POSITION, RAILS UP X2, CALL SALOMON WITHIN REACH. WILL ENDORSE TO NEXT SHIFT FOR ANKUR.
[2022-06-17 07:18] LABS: BASOPHILS % (AUTO) 0.1 % (0.0-2.0); EOSINOPHILS % (AUTO) 12.2 % (0.0-6.0); HEMATOCRIT 22 % (39-51); HEMOGLOBIN 7.3 g/dL (13.5-17.5); LYMPHOCYTES # (AUTO) 2.2 K/uL (0.8-4.8); LYMPHOCYTES % (AUTO) 11.7 % (20.0-44.0); MEAN CORPUSCULAR HGB CONC 34 g/dl (31.0-36.0); MEAN CORPUSCULAR VOLUME 95 fL (80-96); MONOCYTES # (AUTO) 1.6 K/uL (0.1-1.30); MONOCYTES % (AUTO) 8.3 % (2.0-12.0); NEUTROPHILS % (AUTO) 67.7 % (43.0-81.0); PLATELET COUNT (AUTO) 196 K/uL (150-450); WHITE BLOOD COUNT (AUTO) 19.1 K/uL (4.3-11.0)
[2022-06-17 07:29] LABS: CREATININE 1.8 mg/dL (0.6-1.3); POTASSIUM 3.7 mmol/L (3.5-5.1)
--- NOTE | 2022-06-17 07:30 | NUR ---
RN OPENING NOTE PATIENT IS IN BED, OBTUNDED. WITH TRACHEOSTOMY TO MECHANICAL VENTILATOR WITH THE FOLLOWING SETTINGS: AC MODE RR 12 TV 550 FIO2 40% PEEP 5. O2 SATURATION AT 100%. BREATHING UNLABORED AND NOT IN ANY FORM OF DISTRESS. WITH G-TUBE INFUSING WITH GLUCERNA AT 60 ML/HR. DANIEL CATHETER INTACT AND ATTACHED TO URINE BAG DRAINING TO A CLEAR YELLOW URINE. RIGHT HAND IV INTACT AND INFUSING WITH NS AT 75 ML/HR. BED IS LOCKED IN LOWEST POSITION, 3 SIDE RAILS UP, CALL LIGHT WITHIN REACH. WILL CONTINUE TO MONITOR THROUGHOUT SHIFT.
[2022-06-17 08:00] VITALS: BP 106/53
[2022-06-17] MEDS: LABETALOL HCL (100MG) 100 MG TABLET GT SCH ×2 (09:00→21:37)
[2022-06-17] MEDS: AMLODIPINE BESYLATE 10 MG TABLET GT SCH (09:00)
[2022-06-17] MEDS: CHLORHEXIDINE GLUCONATE 15 ML UDC MM SCH ×2 (09:18→17:40)
[2022-06-17] MEDS: MEROPENEM 1 G in IV NS 0.9% 100 ML IV SCH ×2 (09:18→21:37)
[2022-06-17] MEDS: PANTOPRAZOLE 40 MG VIAL IV SCH ×2 (09:18→21:37)
[2022-06-17] MEDS: LEVETIRACETAM SOL (5 ML) 100 MG/ML UDC GT SCH ×2 (09:18→21:36)
[2022-06-17] MEDS: VIT B CMPLX 3/FA/VIT C/BIOTIN 1 TAB TABLET GT SCH (09:18)
[2022-06-17] MEDS: ZINC SULFATE 220 MG CAPSULE GT SCH (09:18)
[2022-06-17] MEDS: ASCORBIC ACID 500 MG TABLET GT SCH (09:18)
[2022-06-17] MEDS: MULTIVITAMINS,THERAGRAN 1 UDTAB TABLET GT SCH (09:18)
[2022-06-17] MEDS: Z GUARD REMEDY 4 OZ OINT TP SCH (09:21)
[2022-06-17] MEDS: ACETAMINOPHEN 325 MG TABLET MC PRN (09:23)
[2022-06-17 12:00] VITALS: BP 129/55
[2022-06-17] MEDS: IV NS 0.9% 1,000 ML IV SCH (12:22)
--- NOTE | 2022-06-17 13:58 | NUR ---
KARTHIK HOLLOWAYNOTIFIEDHGB 7.3 ,NO NEW ORDER.NO NEED FOR TRANSFUSION PER MD.
[2022-06-17 16:00] VITALS: BP 111/57
--- NOTE | 2022-06-17 19:07 | NUR ---
RN CLOSING NOTE PATIENT REMAINED STABLE THROUGHOUT SHIFT AND TOLERATES MECHANICAL VENTILATOR SETTINGS. BREATHING UNLABORED AND NOT IN ANY FORM OF DISTRESS. TOLERATES G-TUBE FEEDING. ALL HOSPITAL SAFETY PRECAUTIONS IN PLACE. WILL ENDORSE TO PETROLEUM REFINING FIRER NURSE.
--- NOTE | 2022-06-17 19:45 | NUR ---
RN OPENING NOTES: RECEIVED PATIENT IN BED, OBTUNDED. ON TRACH TO MECHANICAL VENT SETTING: AC -12, TV- 550, FIO2 40% PEEP 5 AND PT TOLERATED WELL. BREATHING EVEN AND UNLABORED. IV ACCESS ON RT HAND #20G INTACT AND PATENT. NO S/S OF INFILTRATIONS. RUNNING NS AT 75CC/HR. G-TUBE WELL TOLERATED. RUNNING GLUCERNA AT 60 ML/HR. NO FACIAL GRIMACING NOTED. NO ACUTE DISTRESS. DANIEL CATHETER IN PLACE. DRAINING BY GRAVITY. NOTED YELLOWISH/CLEAR URINE. ALL SAFETY MEASURES IN PLACE. BED IN LOWEST POSITION AND LOCKED. SIDE RAILS UP X3, PLACE CALL LIGHT WITHIN REACH. WILL CONTINUE TO MONITOR.
[2022-06-17 20:00] VITALS: BP 140/76
[2022-06-17] MEDS: ATORVASTATIN 40 MG TABLET GT SCH (21:37)
[2022-06-17] MEDS: INSULIN GLARGINE, 100 UNIT/ML CARTRIDGE SQ SCH (22:56)
--- NOTE | 2022-06-17 23:17 | NUR ---
RN NOTES: PT'S BLOOD SUGAR 108. LANTUS 15 UNITS GIVEN. NO COVERAGE FOR REGULAR INSULIN. NO S/S OF HYPER/HYPOGLYCEMIA. WILL CONTINUE TO MONITOR
[2022-06-18] VITALS: BP 101/57
[2022-06-18] MEDS: IV NS 0.9% 1,000 ML IV SCH ×2 (01:42→14:54)
[2022-06-18 04:00] VITALS: BP 123/65
[2022-06-18] MEDS: hydrALAZINE HCL 25 MG TABLET GT SCH ×2 (05:06→15:03)
[2022-06-18] MEDS: BLOOD SUGAR DIAGNOSTIC 1 EACH STRIP IN SCH ×2 (05:41→12:13)
[2022-06-18] MEDS: INSULIN REGULAR, HUMAN 100 UNIT/ML 3 ML VIAL SQ PRN (05:42)
--- NOTE | 2022-06-18 05:42 | NUR ---
RN NOTES: PT'S BLOOD SUGAR 113. NO COVERAGE FOR REGULAR INSULIN. NO S/S OF HYPER/HYPOGLYCEMIA. WILL CONTINUE TO MONITOR
[2022-06-18 06:44] LABS: BASOPHILS % (AUTO) 0.2 % (0.0-2.0); EOSINOPHILS % (AUTO) 14.1 % (0.0-6.0); HEMATOCRIT 22 % (39-51); HEMOGLOBIN 7.1 g/dL (13.5-17.5); LYMPHOCYTES # (AUTO) 2.3 K/uL (0.8-4.8); LYMPHOCYTES % (AUTO) 15.9 % (20.0-44.0); MEAN CORPUSCULAR HGB CONC 33 g/dl (31.0-36.0); MEAN CORPUSCULAR VOLUME 96 fL (80-96); MONOCYTES # (AUTO) 1.5 K/uL (0.1-1.30); MONOCYTES % (AUTO) 10.3 % (2.0-12.0); NEUTROPHILS # (AUTO) 8.7 K/uL (1.8-8.9); NEUTROPHILS % (AUTO) 59.5 % (43.0-81.0); PLATELET COUNT (AUTO) 223 K/uL (150-450); RED BLOOD CELL COUNT(AUTO) 2.26 MIL/uL (4.5-6.0); WHITE BLOOD COUNT (AUTO) 14.6 K/uL (4.3-11.0)
--- NOTE | 2022-06-18 06:45 | NUR ---
RN CLOSING NOTES: PATIENT IN BED, OBTUNDED. ON TRACH TO MECHANICAL VENT SETTING: AC -12, TV- 550, FIO2 40% PEEP 5 AND PT TOLERATED WELL. O2 SAT 97%. BREATHING EVEN AND UNLABORED. IV ACCESS ON RT HAND #20G INTACT AND PATENT. NO S/S OF INFILTRATIONS. RUNNING NS AT 75CC/HR. G-TUBE WELL TOLERATED. RUNNING GLUCERNA AT 60 ML/HR. NO FACIAL GRIMACING NOTED. NO ACUTE DISTRESS. DANIEL CATHETER IN PLACE. DRAINING BY GRAVITY. NOTED YELLOWISH/CLEAR URINE. ALL DUE MEDS GIVEN ORDERED. NO SIGNIFANT CHANGES NOTED. ALL SAFETY MEASURES IN PLACE. BED IN LOWEST POSITION AND LOCKED. SIDE RAILS UP X3, PLACE CALL LIGHT WITHIN REACH. WILL ENDORSE TO MORNING SHIFT NURSE.
[2022-06-18 06:58] LABS: CALCIUM, SERUM 9.1 mg/dL (8.5-10.1); CREATININE 1.5 mg/dL (0.6-1.3); POTASSIUM 4.1 mmol/L (3.5-5.1)
[2022-06-18 08:00] VITALS: BP 133/74
[2022-06-18] MEDS: PANTOPRAZOLE 40 MG VIAL IV SCH (09:02)
[2022-06-18] MEDS: AMLODIPINE BESYLATE 10 MG TABLET GT SCH (09:02)
[2022-06-18] MEDS: CHLORHEXIDINE GLUCONATE 15 ML UDC MM SCH ×2 (09:02→17:39)
[2022-06-18] MEDS: MULTIVITAMINS,THERAGRAN 1 UDTAB TABLET GT SCH (09:03)
[2022-06-18] MEDS: VIT B CMPLX 3/FA/VIT C/BIOTIN 1 TAB TABLET GT SCH (09:03)
[2022-06-18] MEDS: ZINC SULFATE 220 MG CAPSULE GT SCH (09:03)
[2022-06-18] MEDS: LABETALOL HCL (100MG) 100 MG TABLET GT SCH (09:03)
[2022-06-18] MEDS: ASCORBIC ACID 500 MG TABLET GT SCH (09:03)
[2022-06-18] MEDS: LEVETIRACETAM SOL (5 ML) 100 MG/ML UDC GT SCH (09:03)
[2022-06-18] MEDS: Z GUARD REMEDY 4 OZ OINT TP SCH (09:31)
[2022-06-18] MEDS: MEROPENEM 1 G in IV NS 0.9% 100 ML IV SCH (10:13)
[2022-06-18 12:12] VITALS: BP 128/75
[2022-06-18 12:40] LABS: BAND % (MANUAL) 4 % (0.0-5.0); EOSINOPHILS % (MANUAL) 18 % (0-4); LYMPHOCYTES % (MANUAL) 15 % (16-48); MONOCYTES % (MANUAL) 4 % (0-11.0); NEUTROPHILS % (MANUAL) 59 (42-76)
[2022-06-18] MEDS ORDERED: AMIK250V13 IJ (15:15)
[2022-06-18 16:00] VITALS: BP 108/52
[2022-06-18] MEDS: ACETAMINOPHEN 325 MG TABLET MC PRN (17:39)
--- NOTE | 2022-06-18 18:05 | NUR ---
RN CLOSING NOTE PATIENT IS DISCHARGED TO [facility] IN STABLE CONDITION. ALL FORMS SIGNED, SKIN ISSUES DOCUMENTED. REPORT GIVEN TO TAY PARKS. PATIENT WAS PICKED UP BY AMBULANCE CREW. D/C VS: 98.4, RR 20, HR 82, BP 108/52, 02 SAT 100%. NOT IN ANY FORM OF DISTRESS.
== END 2022-06-18 18:50 | DRG 720 ==
LOC: ER 15:11 → TELE1 20:34
PROVIDERS: ADMIT Nurse Practitioner Acute Care; ATTEND Nurse Practitioner Acute Care
PROC: 5A1945Z Respiratory Ventilation, 24-96 Consecutive Hours (ICD-10-PCS; principal; 2022-06-15)
PROC: 30233N1 Transfusion of Nonautologous Red Blood Cells into Peripheral Vein, Percutaneous Approach (ICD-10-PCS; 2022-06-15)
DX: A41.9 Sepsis, unspecified organism (principal); N17.0 Acute kidney failure with tubular necrosis; G93.41 Metabolic encephalopathy; R53.2 Functional quadriplegia; D68.59 Other primary thrombophilia; J96.10 Chronic respiratory failure, unspecified whether with hypoxia or hypercapnia; L89.620 Pressure ulcer of left heel, unstageable; D63.8 Anemia in other chronic diseases classified elsewhere; Z99.11 Dependence on respirator [ventilator] status; Z93.0 Tracheostomy status; N39.0 Urinary tract infection, site not specified; G40.909 Epilepsy, unspecified, not intractable, without status epilepticus; Z20.822 Contact with and (suspected) exposure to COVID-19; Z93.1 Gastrostomy status; R13.10 Dysphagia, unspecified; E11.22 Type 2 diabetes mellitus with diabetic chronic kidney disease; K57.90 Diverticulosis of intestine, part unspecified, without perforation or abscess without bleeding; N18.9 Chronic kidney disease, unspecified; D64.9 Anemia, unspecified; E78.5 Hyperlipidemia, unspecified; Z79.4 Long term (current) use of insulin; Z79.51 Long term (current) use of inhaled steroids; Z79.899 Other long term (current) drug therapy; Z74.09 Other reduced mobility; Z87.19 Personal history of other diseases of the digestive system; I12.9 Hypertensive chronic kidney disease with stage 1 through stage 4 chronic kidney disease, or unspecified chronic kidney disease; I25.10 Atherosclerotic heart disease of native coronary artery without angina pectoris; Z86.16 Personal history of COVID-19; Z87.440 Personal history of urinary (tract) infections; Z86.19 Personal history of other infectious and parasitic diseases; R21 Rash and other nonspecific skin eruption; B96.89 Other specified bacterial agents as the cause of diseases classified elsewhere
CPT/HCPCS: 31720; 36415; 70450-TC; 71045-TC; 80048-TC; 80076-TC; 81001; 82272-TC; 82728-TC; 82962-TC; 83605-TC; 84484-TC; 85025-TC; 85730-TC; 86803; 86850-TC; 87040-TC; 87081-TC; 87086-TC; 87186-TC; 87806; 94002-TC; 94003-TC; 94760-TC; 94799-TC; A6403; C9113; C9803; G0378; J1815; J1953; J2185; J3370; J3480; J3490; J7030; J7040; J7050; J7060; P9016

== ENCOUNTER 2022-11-17 19:26 | Inpatient (IN) | payer OTHER ==
[~2022-11-17] VITALS: Ht 165.1 cm; Wt 74.8 kg
[~2022-11-17 19:26] MED LIST changes: -ACET-868 GT; +AMIK250V13 IJ; +AMLO-213 GT; +ASCO-340 GT; -BISA10SU11 RC; -CLON0.1T GT; +CRAN3875 GT; +MULT-447 GT; -NA P133E RC; +PANT40SU2 GT; +POLY17PO4 GT; +ZINC1CAP3 GT
[2022-11-17] MEDS ORDERED: IV NS 0.9% 1,000 ML BAG IV ONE ×3 (20:00→22:00)
--- NOTE | 2022-11-17 20:01 | NUR ---
TABBY [place] FROM [facility] FOR HEMATURIA TODAY. PLACED IN BED 9 ON DEMURRAGE CLERK AND PULSE OX. DANIEL REPLACED. BLOOD DRAW, SENT TO LAB. AWAITING FURTHER ORDERS.
[2022-11-17 20:08] LABS: BASOPHILS # (AUTO) 0.1 K/uL (0.0-0.2); BASOPHILS % (AUTO) 0.2 % (0.0-2.0); EOSINOPHILS % (AUTO) 0.4 % (0.0-6.0); HEMATOCRIT 35 % (39-51); HEMOGLOBIN 10.9 g/dL (13.5-17.5); LYMPHOCYTES # (AUTO) 2.5 K/uL (0.8-4.8); LYMPHOCYTES % (AUTO) 8.7 % (20.0-44.0); MEAN CORPUSCULAR HGB CONC 32 g/dl (31.0-36.0); MEAN CORPUSCULAR VOLUME 95 fL (80-96); MONOCYTES # (AUTO) 2.4 K/uL (0.1-1.30); MONOCYTES % (AUTO) 8.2 % (2.0-12.0); NEUTROPHILS # (AUTO) 24.2 K/uL (1.8-8.9); NEUTROPHILS % (AUTO) 82.5 % (43.0-81.0); PLATELET COUNT (AUTO) 280 K/uL (150-450); RED BLOOD CELL COUNT(AUTO) 3.66 MIL/uL (4.5-6.0); WHITE BLOOD COUNT (AUTO) 29.3 K/uL (4.3-11.0)
[2022-11-17 20:43] LABS: ALBUMIN 2.9 g/dL (3.4-5.0); BILIRUBIN,DIRECT 0.2 mg/dL (0.0-0.2); BILIRUBIN,TOTAL 0.6 mg/dL (0.2-1.0); CALCIUM, SERUM 10.9 mg/dL (8.5-10.1); POTASSIUM 3.7 mmol/L (3.5-5.1); TOTAL PROTEIN, SERUM 7.6 g/dL (6.4-8.2)
--- NOTE | 2022-11-17 21:12 | NUR ---
NOAH SENT TO LAB
[2022-11-17] MEDS ORDERED: ONDANSETRON HCL/PF 4 MG/2 ML VIAL IVP PRN (21:30)
[2022-11-17] MEDS ORDERED: MAG HYDROX/AL HYDROX/SIMETH 30 ML UDC PO PRN (21:30)
[2022-11-17] MEDS ORDERED: POLYETHYLENE GLYCOL 3350 17 GM POWD.PACK GT PRN (21:30)
[2022-11-17] MEDS ORDERED: Z GUARD REMEDY 4 OZ OINT TP PRN (21:30)
[2022-11-17] MEDS ORDERED: GLUCERNA 1.5 1,000 ML BOTTLE GT SCH (21:30)
[2022-11-17] MEDS ORDERED: DEXTROSE 50%-WATER 50 ML DISP.SYRIN IV PRN (21:30)
[2022-11-17] MEDS ORDERED: MAGNESIUM HYDROXIDE 30 ML UDC PO PRN (21:30)
[2022-11-17] MEDS ORDERED: CEFTRIAXONE 1GM BAG (ER ONLY) 50 ML IV ONE ×2 (21:55→22:00)
[2022-11-17 22:18] LABS: BILIRUBIN,URINE 2+ (NEGATIVE); LEUKOCYTE ESTERASE ,URINE 3+ (NEGATIVE); NITRITE, URINE POSITIVE (NEGATIVE); PH,URINE 5.5 (5.0-8.0); PROTEIN,URINE 3+ mg/dl (NEGATIVE); UGLUCOSE NEGATIVE (NEGATIVE)
[2022-11-17 22:24] LABS: COLOR,URINE ORANGE (YELLOW)
--- NOTE | 2022-11-17 22:27 | NUR ---
Report given to Gabrielle PARKS for ANKUR. Will be transfered once Xray is done.
[2022-11-17] MEDS: INSULIN GLARGINE, 100 UNIT/ML CARTRIDGE SQ SCH (22:33)
[2022-11-17 22:41] LABS: BACTERIA,URINE Few /HPF (None Seen); SQUAMOUS EPITHELIAL CELL,UR Few /HPF (None Seen)
[2022-11-17 23:05] VITALS: BP 132/78
--- NOTE | 2022-11-17 23:15 | NUR ---
POWER SUPERINTENDENTTUGBOAT MATE NOTE PT BROUGHT TO UNIT VIA GURNEY AT THIS TIME. PT ADMITTED TO TELE FROM ER UNDER DR COHEN FOR ADMITTING DX SEPSIS. PT WITH TRACH CONNECTED TO [facility] VENT TO PRESCRIBED SETTINGS, RT AT BEDSIDE. IV ACCESS L HAND 20G, INTACT AND PATENT, RUNNING 1/2 NS @ 75 ML/HR. WITH GTUBE IN PLACE. SCARRING NOTED AT SACRUM AND BILATERAL BUTTOCKS, WOUND CARE CONSULT ORDERED. PT BELONGINGS ACCOUNTED FOR AND BELONGINGS LIST SIGNED. SAFETY PRECAUTIONS IN PLACE. BED IN LOWEST LOCKED POSITION, HOB ELEVATED, SIDE RAILS UP AND PADDED, CALL LIGHT AND TABLE WITHIN REACH. ALL NEEDS MET AT THIS TIME.
[2022-11-17] MEDS ORDERED: PIPERACILLIN /TAZOBACTAM 3.375 G VIAL IV ONE (23:23)
[2022-11-17] MEDS: IV 1/2NS 1000 ML 1,000 ML IV PRN (23:45)
[2022-11-18] MEDS ORDERED: ZOSYN IVPB 3.375 G in IV D5W 50ml IV ONE ×2
[2022-11-18] MEDS ORDERED: GLUCERNA 1.2 1,000 ML BOTTLE GT PRN
[2022-11-18] MEDS: BLOOD SUGAR DIAGNOSTIC 1 EACH STRIP VI SCH ×5 (00:13→22:23)
[2022-11-18] MEDS: ACETAMINOPHEN ES 500 MG TABLET GT PRN ×2 (01:40→13:18)
[2022-11-18 04:00] VITALS: BP 99/61
--- NOTE | 2022-11-18 06:30 | NUR ---
OSTRICH FARMER CLOSING NOTE PT AWAKE IN BED, OBTUNDED. PT WITH TRACH CONNECTED TO [facility] VENT TO PRESCRIBED SETTINGS, TOLERATING WELL. NOTED WITH THICK WHITE SECRETIONS UPON SUCTIONING. IV ACCESS L HAND 20G, INTACT AND PATENT, RUNNING 1/2 NS @ 75 ML/HR. WITH GTUBE IN PLACE, RUNNING GLUCERNA 1.2 @ 60 ML/HR FOR 20 HOUR, TOLERATING WELL. ALL DUE MEDS GIVEN ORDERED. KEPT CLEAN AND DRY. SAFETY PRECAUTIONS IN PLACE AT ALL TIMES. BED IN LOWEST LOCKED POSITION, HOB ELEVATED, SIDE RAILS UP AND PADDED, CALL LIGHT AND TABLE WITHIN REACH. ALL NEEDS MET AT THIS TIME AND WILL ENDORSE TO ONCOMING NURSE FOR ANKUR. Addendum: 11/18/22 at 0634 by JUSTINA RAMIREZ RN ON EXTERNAL CUSTOMER SUCCESS ADVOCATE READING ST 113 BPM.
[2022-11-18 06:47] LABS: BASOPHILS # (AUTO) 0.1 K/uL (0.0-0.2); BASOPHILS % (AUTO) 0.2 % (0.0-2.0); EOSINOPHILS % (AUTO) 0.6 % (0.0-6.0); HEMATOCRIT 29 % (39-51); LYMPHOCYTES # (AUTO) 1.2 K/uL (0.8-4.8); LYMPHOCYTES % (AUTO) 4.4 % (20.0-44.0); MEAN CORPUSCULAR HGB CONC 31 g/dl (31.0-36.0); MEAN CORPUSCULAR VOLUME 95 fL (80-96); MONOCYTES % (AUTO) 7.2 % (2.0-12.0); NEUTROPHILS # (AUTO) 24.9 K/uL (1.8-8.9); NEUTROPHILS % (AUTO) 87.6 % (43.0-81.0); PLATELET COUNT (AUTO) 220 K/uL (150-450); RED BLOOD CELL COUNT(AUTO) 3.01 MIL/uL (4.5-6.0); WHITE BLOOD COUNT (AUTO) 28.4 K/uL (4.3-11.0)
[2022-11-18 07:02] LABS: CALCIUM, SERUM 9.7 mg/dL (8.5-10.1); CREATININE 2.9 mg/dL (0.6-1.3); MAGNESIUM 2.3 mg/dL (1.8-2.4); PHOSPHORUS 2.9 mg/dL (2.5-4.9); POTASSIUM 3.6 mmol/L (3.5-5.1)
--- NOTE | 2022-11-18 07:41 | NUR ---
ADVANCE SCOUT NOTE PT IN BED, OBTUNDED. PT WITH TRACH TO CONNECTED TO [facility] VENT TO PRESCRIBED SETTINGS, TOLERATING WELL. IV ACCESS L HAND 20G, INTACT AND PATENT, RUNNING 1/2 NS @ 75 ML/HR. WITH GTUBE IN PLACE, RUNNING GLUCERNA 1.2 @ 60 ML/HR FOR 20 HOUR, TOLERATING WELL. KEPT CLEAN AND DRY. SAFETY PRECAUTIONS IN PLACE AT ALL TIMES. BED IN LOWEST LOCKED POSITION, HOB ELEVATED, SIDE RAILS UP AND PADDED, CALL LIGHT AND TABLE WITHIN REACH.WILL CONT TO MONITOR
[2022-11-18 08:00] VITALS: BP 105/66
[2022-11-18] MEDS: LEVETIRACETAM SOL (5 ML) 100 MG/ML UDC GT SCH ×2 (08:30→21:33)
[2022-11-18] MEDS: CHLORHEXIDINE GLUCONATE 15 ML UDC MM SCH ×2 (08:30→21:33)
[2022-11-18] MEDS: MULTIVITAMINS,THERAGRAN 1 UDTAB TABLET GT SCH (08:30)
[2022-11-18] MEDS: PANTOPRAZOLE 40 MG/PACK PACK GT SCH ×2 (08:30→17:02)
[2022-11-18] MEDS: ZOSYN IVPB 3.375 G in IV D5W 50ml IV SCH ×3 (08:31→19:57)
[2022-11-18] MEDS: INSULIN REGULAR, HUMAN 100 UNIT/ML 3 ML VIAL SQ PRN ×2 (08:50→13:11)
--- NOTE | 2022-11-18 10:43 | NUR ---
WOUND CARE CONSULT: PT UNSTABLE TO BE TURNED FOR SKIN ASSESSMENT AT THIS TIME. ADMISSION PHOTOS INDICATE SACRAL SCARRING WHICH EXTENDS TO BUTTOCKS, PERINEUM AND POSTERIOR THIGHS. DISCUSSED SKIN PROTECTION WITH NURSING STAFF. PT WAS PLACED ON ISOFLEX LOW AIRLOSS BED. MD IN AGREEMENT WITH PLAN OF CARE.
--- NOTE | 2022-11-18 10:55 | NUR ---
BARREL ASSEMBLER HELPER NOTE DR KIRAN AT BEDSIDE NOTIFIED WBC 28.4 PM ATB ,WILL F\U
[2022-11-18 10:56] VITALS: BP 105/66
--- NOTE | 2022-11-18 11:56 | NUR ---
rn telehealth note lab called gram negative rods in blood cx, per dr escalante notes he is aware about this ,on atb will f\u Addendum: 11/18/22 at 1819 by GABRIEL DRIVER RN dr Escalante notified that procalcitonin 6.01 no new order given at this time
[2022-11-18 12:00] VITALS: BP 121/68
[2022-11-18 12:46] LABS: BAND % (MANUAL) 23 % (0.0-5.0); NEUTROPHILS % (MANUAL) 60 (42-76)
[2022-11-18 12:47] LABS: LYMPHOCYTES % (MANUAL) 11 % (16-48); METAMYELOCYTES % 1 % (0-0); MONOCYTES % (MANUAL) 4 % (0-11.0); MYELOCYTES % 1 % (0-0)
--- NOTE | 2022-11-18 13:46 | NUR ---
dale patel note t 100.0 Tylenol via g tube given ,cooling measure provided. will monitor Addendum: 11/18/22 at 1544 by GABRIEL DRIVER RN t 100.1
[2022-11-18] MEDS: IV 1/2NS 1000 ML 1,000 ML IV PRN (15:47)
[2022-11-18 16:01] VITALS: BP 113/74
[2022-11-18] MEDS: GLUCERNA 1.2 1,000 ML BOTTLE GT PRN (18:02)
--- NOTE | 2022-11-18 18:52 | NUR ---
SENIOR PEOPLESOFT DEVELOPER NOTE PATIENT IN BED WITH TEACH TO VENT SETTING ORDERED ,KEEP HOB ELEVATED ,WITH G TUBE FEEDING ORDERED ,NO RESIDUAL NOTED AT THIS TIME, RT HAND AND RT FA HL INTACT, ON IVF ORDERED , BED IN LOWEST AND LOCKED POSITION , TRACH CARE AND MOUTH CARE DONE , US KIDNEY DONE Addendum: 11/18/22 at 1904 by GABRIEL DRIVER RN UA COLLECTED ORDERED
--- NOTE | 2022-11-18 19:05 | NUR ---
STRAP STITCHER OPENING NOTE RECEIVED PATIENT IN BED, OBTUNDED, TRACH CONNECTED TO MV ON CPAP MODE WITH FIO2 40%, PEEP 5, TOLERATING WELL. IV ACCESS ON L HAND 20G AND L FOREARM 20G, RUNNING 1/2 NS @ 75 ML/HR. GTF RUNNING GLUCERNA 1.2 @ 75 ML/HR FOR 20 HOURS, NO RESIDUAL NOTED. DANIEL CATHETER IN PLACE, INTACT AND PATENT, DRAINING CLEAR YELLOW URINE. SAFETY PRECAUTIONS IN PLACE: BED LOCKED AND IN LOWEST POSITION, HOB ELEVATED, CALL LIGHT WITHIN REACH, SIDE RAILS UP X3 AND PADDED.
[2022-11-18] MEDS: ACETAMINOPHEN 325 MG TABLET PO PRN (19:57)
[2022-11-18 20:00] VITALS: BP 135/83
[2022-11-18 20:00] LABS: BILIRUBIN,URINE NEGATIVE (NEGATIVE); COLOR,URINE YELLOW (YELLOW); LEUKOCYTE ESTERASE ,URINE 3+ (NEGATIVE); NITRITE, URINE NEGATIVE (NEGATIVE); PROTEIN,URINE 2+ mg/dl (NEGATIVE); UGLUCOSE NEGATIVE (NEGATIVE); UROBILINOGEN,URINE 0.2 EU/dL (0.2)
[2022-11-18 20:10] LABS: CREATININE, URINE 97.3 MG/DL (30.0-125.0)
[2022-11-18 20:34] LABS: BACTERIA,URINE Many /HPF (None Seen); RBC,URINE 81-100 /HPF (0-2); SQUAMOUS EPITHELIAL CELL,UR Few /HPF (None Seen); WBC,URINE 81-100 /HPF (0-3)
[2022-11-18 20:35] LABS: CALCIUM OXALATE CRYSTALS,UR Few /HPF (None Seen); URINE AMORPHOUS URATE Moderate /HPF (None Seen)
[2022-11-18] MEDS: *INSULIN REGULAR(HUMULIN R)HUM 100 UNIT/ML VIAL SQ PRN (22:24)
[2022-11-18] MEDS: INSULIN GLARGINE, 100 UNIT/ML CARTRIDGE SQ SCH (22:26)
[2022-11-19] VITALS: BP 130/83
[2022-11-19] MEDS: ZOSYN IVPB 3.375 G in IV D5W 50ml IV SCH ×2 (03:12→08:56)
[2022-11-19 04:00] VITALS: BP 137/84
[2022-11-19] MEDS: ACETAMINOPHEN 325 MG TABLET PO PRN ×2 (05:54→13:12)
[2022-11-19 06:50] LABS: BASOPHILS # (AUTO) 0.1 K/uL (0.0-0.2); BASOPHILS % (AUTO) 0.3 % (0.0-2.0); EOSINOPHILS % (AUTO) 2.8 % (0.0-6.0); HEMATOCRIT 27 % (39-51); HEMOGLOBIN 8.7 g/dL (13.5-17.5); LYMPHOCYTES # (AUTO) 1.5 K/uL (0.8-4.8); LYMPHOCYTES % (AUTO) 7.7 % (20.0-44.0); MEAN CORPUSCULAR HGB CONC 32 g/dl (31.0-36.0); MEAN CORPUSCULAR VOLUME 96 fL (80-96); MONOCYTES # (AUTO) 1.5 K/uL (0.1-1.30); MONOCYTES % (AUTO) 7.9 % (2.0-12.0); NEUTROPHILS # (AUTO) 15.6 K/uL (1.8-8.9); NEUTROPHILS % (AUTO) 81.3 % (43.0-81.0); PLATELET COUNT (AUTO) 206 K/uL (150-450); RED BLOOD CELL COUNT(AUTO) 2.82 MIL/uL (4.5-6.0); WHITE BLOOD COUNT (AUTO) 19.1 K/uL (4.3-11.0)
--- NOTE | 2022-11-19 07:10 | NUR ---
ACCOUNT COORDINATOR CLOSING NOTE PATIENT IN BED, OBTUNDED, TRACH CONNECTED TO MV ON CPAP MODE WITH FIO2 40%, PEEP 5, TOLERATING WELL. IV ACCESS ON L HAND 20G AND L FOREARM 20G, RUNNING 1/2 NS @ 75 ML/HR. GTF RUNNING GLUCERNA 1.2 @ 75 ML/HR FOR 20 HOURS, NO RESIDUAL NOTED. DANIEL CATHETER IN PLACE, INTACT AND PATENT, DRAINING CLEAR YELLOW URINE. ALL DUE MEDS WERE GIVEN AND NEEDS ATTENDED. SAFETY PRECAUTIONS MAINTAINED: BED LOCKED AND IN LOWEST POSITION, HOB ELEVATED, CALL LIGHT WITHIN REACH, SIDE RAILS UP X3 AND PADDED. WILL ENDORSE TO ONCOMING NURSE FOR ANKUR.
[2022-11-19 08:00] VITALS: BP 151/93
[2022-11-19 08:13] LABS: CALCIUM, SERUM 9.5 mg/dL (8.5-10.1); CREATININE 2.2 mg/dL (0.6-1.3); POTASSIUM 3.5 mmol/L (3.5-5.1)
[2022-11-19] MEDS: BLOOD SUGAR DIAGNOSTIC 1 EACH STRIP VI SCH ×4 (08:15→22:45)
[2022-11-19] MEDS: MULTIVITAMINS,THERAGRAN 1 UDTAB TABLET GT SCH (08:56)
[2022-11-19] MEDS: CHLORHEXIDINE GLUCONATE 15 ML UDC MM SCH ×2 (08:56→21:50)
[2022-11-19] MEDS: LEVETIRACETAM SOL (5 ML) 100 MG/ML UDC GT SCH ×2 (08:56→21:50)
[2022-11-19] MEDS: PANTOPRAZOLE 40 MG/PACK PACK GT SCH ×2 (08:58→17:38)
[2022-11-19 12:00] VITALS: BP 160/95
[2022-11-19] MEDS: IV 1/2NS 1000 ML 1,000 ML IV PRN (12:04)
[2022-11-19 12:07] LABS: *ANA ANTI-CENTROMERE B AB <0.2 AI (0.0-0.9); *ANA ANTI-DNA(DS) AB, QN 1 IU/mL (0-9); *ANA ANTI-JO-1 <0.2 AI (0.0-0.9); *ANA ANTICHROMATIN ANTIBODY <0.2 AI (0.0-0.9); *ANA RNP ANTIBODIES 0.9 AI (0.0-0.9); *ANA SJOGREN'S ANTI-SS-A <0.2 AI (0.0-0.9); *ANA SJOGREN'S ANTI-SS-B <0.2 AI (0.0-0.9); *ANAANTI-SCLERODERMA-70 AB <0.2 AI (0.0-0.9); *ANASMITH AB <0.2 AI (0.0-0.9)
[2022-11-19] MEDS: MEROPENEM 500 MG in IV NS 0.9% 50 ML IV SCH ×2 (13:01→21:51)
[2022-11-19 16:00] VITALS: BP 150/91
--- NOTE | 2022-11-19 18:45 | NUR ---
RN CLOSING NOTE PT AWAKE IN BED, OBTUNDED OPEN EYES, AT BED SIDE. [facility] TR[facility] TO PRESCRIBED SETTINGS, TOLERATING WELL. IV ACCESS L HAND 20G, INTACT AND PATENT, RUNNING 1/2 NS @ 75 ML/HR. WITH GTUBE IN PLACE, RUNNING GLUCERNA 1.2 @ 75 ML/HR FOR 20 HOUR, TOLERATING WELL. ALL DUE MEDS GIVEN ORDERED. KEPT CLEAN AND DRY. SAFETY PRECAUTIONS IN PLACE AT ALL TIMES. BED IN LOWEST LOCKED POSITION, HOB ELEVATED, SIDE RAILS UP AND PADDED, CALL LIGHT AND TABLE WITHIN REACH. ALL NEEDS MET AT THIS TIME AND WILL ENDORSE TO ONCOMING PM NURSE FOR ANKUR
[2022-11-19] MEDS: GLUCERNA 1.2 1,000 ML BOTTLE GT PRN (19:18)
--- NOTE | 2022-11-19 19:30 | NUR ---
ENVIRONMENTAL STUDIES FACULTY MEMBER OPENING NOTE RECEIVED PATIENT IN BED, OBTUNDED, TRACH CONNECTED TO MV ON CPAP MODE WITH FIO2 40%, PEEP 5, TOLERATING WELL. IV ACCESS ON LEFT HAND 20G AND LEFT FOREARM 20G, RUNNING 1/2 NS @ 75 ML/HR. G-TUBE FEEDING RUNNING GLUCERNA 1.2 @ 75 ML/HR FOR 20 HOURS, NO RESIDUAL NOTED. DANIEL CATHETER IN PLACE, INTACT AND PATENT, DRAINING CLEAR YELLOW URINE. SAFETY PRECAUTIONS IN PLACE: BED LOCKED AND IN LOWEST POSITION, HOB ELEVATED, CALL LIGHT WITHIN REACH, SIDE RAILS UP X3 AND PADDED. WILL CONTINUE TO MONITOR PT.
[2022-11-19 20:00] VITALS: BP 171/86
[2022-11-19] MEDS: INSULIN GLARGINE, 100 UNIT/ML CARTRIDGE SQ SCH (22:44)
[2022-11-19] MEDS: *INSULIN REGULAR(HUMULIN R)HUM 100 UNIT/ML VIAL SQ PRN (22:49)
[2022-11-19] MEDS: ACETAMINOPHEN ES 500 MG TABLET GT PRN (23:37)
--- NOTE | 2022-11-19 23:37 | NUR ---
GAMING WORKER NOTE PT HAS FEVER, TEMP: 102.5. TYLENOL ES ADMINISTERED TO PT, AND COOLING MEASURES DONE.
[2022-11-20] VITALS: BP 149/96
--- NOTE | 2022-11-20 00:43 | NUR ---
PAPER SORTER NOTE PT'S FEVER HAS DECREASED, TEMP: 99.5 AT THIS TIME. WILL CONTINUE TO MONITOR.
[2022-11-20] MEDS: IV 1/2NS 1000 ML 1,000 ML IV PRN ×2 (03:50→17:03)
[2022-11-20 04:00] VITALS: BP 156/96
[2022-11-20] MEDS: MEROPENEM 500 MG in IV NS 0.9% 50 ML IV SCH ×3 (05:02→20:58)
--- NOTE | 2022-11-20 06:45 | NUR ---
CHANGE RELEASE MANAGER CLOSING NOTE LEFT PATIENT IN BED, OBTUNDED, TRACH CONNECTED TO MV ON CPAP MODE WITH FIO2 40%, PEEP 5, TOLERATING WELL. IV ACCESS ON LEFT HAND 20G AND LEFT FOREARM 20G, RUNNING 1/2 NS @ 75 ML/HR. G-TUBE FEEDING RUNNING GLUCERNA 1.2 @ 75 ML/HR FOR 20 HOURS, NO RESIDUAL NOTED. DANIEL CATHETER IN PLACE, INTACT AND PATENT, DRAINING CLEAR YELLOW URINE, 1150 ML OF URINE REMOVED. SAFETY PRECAUTIONS IN PLACE: BED LOCKED AND IN LOWEST POSITION, HOB ELEVATED, CALL LIGHT WITHIN REACH, SIDE RAILS UP X3 AND PADDED. WILL ENDORSE PT TO AM SHIFT NURSE FOR ANKUR.
[2022-11-20 07:03] LABS: BASOPHILS % (AUTO) 0.2 % (0.0-2.0); EOSINOPHILS % (AUTO) 3.5 % (0.0-6.0); HEMATOCRIT 27 % (39-51); HEMOGLOBIN 8.5 g/dL (13.5-17.5); LYMPHOCYTES # (AUTO) 1.3 K/uL (0.8-4.8); LYMPHOCYTES % (AUTO) 11.3 % (20.0-44.0); MEAN CORPUSCULAR HGB CONC 32 g/dl (31.0-36.0); MEAN CORPUSCULAR VOLUME 96 fL (80-96); MONOCYTES # (AUTO) 1.2 K/uL (0.1-1.30); MONOCYTES % (AUTO) 10.3 % (2.0-12.0); NEUTROPHILS # (AUTO) 8.8 K/uL (1.8-8.9); NEUTROPHILS % (AUTO) 74.7 % (43.0-81.0); PLATELET COUNT (AUTO) 209 K/uL (150-450); RED BLOOD CELL COUNT(AUTO) 2.79 MIL/uL (4.5-6.0); WHITE BLOOD COUNT (AUTO) 11.7 K/uL (4.3-11.0)
[2022-11-20 07:17] LABS: CALCIUM, SERUM 9.3 mg/dL (8.5-10.1); CREATININE 1.6 mg/dL (0.6-1.3); MAGNESIUM 2.3 mg/dL (1.8-2.4); PHOSPHORUS 2.3 mg/dL (2.5-4.9); POTASSIUM 3.5 mmol/L (3.5-5.1)
[2022-11-20] MEDS: BLOOD SUGAR DIAGNOSTIC 1 EACH STRIP VI SCH ×4 (07:44→21:32)
[2022-11-20 08:00] VITALS: BP 171/95
[2022-11-20] MEDS: ACETAMINOPHEN 325 MG TABLET PO PRN (08:29)
[2022-11-20] MEDS: PANTOPRAZOLE 40 MG/PACK PACK GT SCH ×2 (08:29→16:44)
[2022-11-20] MEDS: *INSULIN REGULAR(HUMULIN R)HUM 100 UNIT/ML VIAL SQ PRN (08:43)
[2022-11-20] MEDS: MULTIVITAMINS,THERAGRAN 1 UDTAB TABLET GT SCH (09:15)
[2022-11-20] MEDS: CHLORHEXIDINE GLUCONATE 15 ML UDC MM SCH ×2 (09:15→20:57)
[2022-11-20] MEDS: LEVETIRACETAM SOL (5 ML) 100 MG/ML UDC GT SCH ×2 (09:15→20:57)
[2022-11-20] MEDS: CLONIDINE HCL 0.1 MG TABLET GT PRN ×2 (11:45→20:57)
[2022-11-20 12:00] VITALS: BP 160/89
[2022-11-20 16:00] VITALS: BP 185/96
[2022-11-20] MEDS ORDERED: NEUTRA PHOS 1 POWD.PACKET GT ONE (16:00)
[2022-11-20] MEDS: INSULIN REGULAR, HUMAN 100 UNIT/ML 3 ML VIAL SQ PRN (16:56)
[2022-11-20] MEDS: ACETAMINOPHEN ES 500 MG TABLET GT PRN (17:31)
--- NOTE | 2022-11-20 19:12 | NUR ---
COMPUTER METHODS ANALYST CLOSING NOTE LEFT PATIENT IN BED, OBTUNDED, TRACH CONNECTED TO MV ON CPAP MODE WITH FIO2 40%, PEEP 5, TOLERATING WELL. IV ACCESS ON LEFT HAND 20G AND LEFT FOREARM 20G, RUNNING 1/2 NS @ 75 ML/HR. G-TUBE FEEDING RUNNING GLUCERNA 1.2 @ 75 ML/HR FOR 20 HOURS, NO RESIDUAL NOTED. DANIEL CATHETER IN PLACE, INTACT AND PATENT, DRAINING CLEAR YELLOW URINE, 1300 ML OF URINE REMOVED. SAFETY PRECAUTIONS IN PLACE: BED LOCKED AND IN LOWEST POSITION, HOB ELEVATED, CALL LIGHT WITHIN REACH, SIDE RAILS UP X3 AND PADDED. WILL ENDORSE PT TO PM SHIFT NURSE FOR ANKUR.
--- NOTE | 2022-11-20 20:15 | NUR ---
blood pressure 171/91 catapress 0.1 mg given
[2022-11-20] MEDS: INSULIN GLARGINE, 100 UNIT/ML CARTRIDGE SQ SCH (21:47)
[2022-11-21] VITALS (7 sets, daily range): BP systolic 146–181; BP diastolic 70–95
--- NOTE | 2022-11-21 00:08 | NUR ---
Blood Pressure 181/90 Hr 51 SB on the monitor texted Sathish Rodriguez and made him aware the PRN Clonidine 0.1 mg given at 8PM for BP 171/91 hr 73 ineffective waiting for call back
[2022-11-21] MEDS ORDERED: hydrALAZINE HCL IV 20 MG VIAL IV ONE (00:30)
--- NOTE | 2022-11-21 00:32 | NUR ---
A one time dose of Hydralazine 10 mg IV given as ordered by JOI Rodriguez will monitor patient
[2022-11-21] MEDS: GLUCERNA 1.2 1,000 ML BOTTLE GT PRN ×2 (02:29→16:43)
[2022-11-21] MEDS: CLONIDINE HCL 0.1 MG TABLET GT PRN ×3 (03:23→21:33)
--- NOTE | 2022-11-21 04:09 | NUR ---
CLOSING NOTES: OBTUNDED WILL OPEN EYES LOOKING AROUND NO FOCUS SUCTIONED AND MOUTH CARE GIVEN BLISTERS NOTED LEFT UPPER THIGH CLEANED AND A DRESSING APPLIED WOUND CONSULT ORDERED DANIEL OUTPUT 2100 CC THIS 12 HOURS 1 LOOSE STOOL ASP THIS 12 HOURS ABD SEIZURE PRECAUTION B/P AT 2000 WAS 171/91 CLONIDINE 0.1 MG GIVEN B/P AT 0000 WAS 181/90 HR 51 PLACED A CALL TO FLOORLEADER JUANCARLOS BOWERS ORDERED 1 TIME DOSE HYDRALAZINE 10 IV GIVEN B/P 0400 164/75 HR 60 PRN CLONIDINE 0.1 MG GIVEN
[2022-11-21] MEDS: MEROPENEM 500 MG in IV NS 0.9% 50 ML IV SCH ×3 (04:43→21:28)
[2022-11-21] MEDS: IV 1/2NS 1000 ML 1,000 ML IV PRN ×2 (04:44→16:39)
[2022-11-21 07:41] LABS: CREATININE 1.4 mg/dL (0.6-1.3); PHOSPHORUS 2.8 mg/dL (2.5-4.9); POTASSIUM 4.1 mmol/L (3.5-5.1)
[2022-11-21] MEDS: BLOOD SUGAR DIAGNOSTIC 1 EACH STRIP VI SCH ×4 (07:52→22:07)
[2022-11-21 07:53] LABS: BASOPHILS % (AUTO) 0.3 % (0.0-2.0); EOSINOPHILS % (AUTO) 4.2 % (0.0-6.0); HEMATOCRIT 27 % (39-51); HEMOGLOBIN 8.6 g/dL (13.5-17.5); LYMPHOCYTES # (AUTO) 1.4 K/uL (0.8-4.8); LYMPHOCYTES % (AUTO) 17.3 % (20.0-44.0); MEAN CORPUSCULAR HGB CONC 32 g/dl (31.0-36.0); MEAN CORPUSCULAR VOLUME 96 fL (80-96); MONOCYTES # (AUTO) 1.1 K/uL (0.1-1.30); MONOCYTES % (AUTO) 13.8 % (2.0-12.0); NEUTROPHILS # (AUTO) 5.4 K/uL (1.8-8.9); NEUTROPHILS % (AUTO) 64.4 % (43.0-81.0); PLATELET COUNT (AUTO) 206 K/uL (150-450); WHITE BLOOD COUNT (AUTO) 8.3 K/uL (4.3-11.0)
[2022-11-21] MEDS: PANTOPRAZOLE 40 MG/PACK PACK GT SCH ×2 (07:58→16:41)
[2022-11-21] MEDS ORDERED: MERO500P IV (08:58)
--- NOTE | 2022-11-21 11:13 | NUR ---
RN NOTE RAPID COVID TEST CAME BACK POSITIVE. NOTIFIED CHARGE NURSE, GABRIEL, NOTIFIED WAREHOUSE PULLER DAYANNA, AND RECEIVED ORDER FROM DR MANRIQUEZ FOR NOVEL CONRAD VIRUS TO CONFIRM.
--- NOTE | 2022-11-21 11:15 | NUR ---
WOUND CARE CONSULT: PT PRESENTS WITH LEFT THIGH INTACT BLISTERS, UNKNOWN ETIOLOGY. RECOMMENDATIONS MADE FOR WOUND CARE AND SKIN PROTECTION. DISCUSSED WITH NURSING STAFF. MD IN AGREEMENT WITH PLAN OF CARE.
[2022-11-21] MEDS: CHLORHEXIDINE GLUCONATE 15 ML UDC MM SCH ×2 (11:49→21:28)
[2022-11-21] MEDS: MULTIVITAMINS,THERAGRAN 1 UDTAB TABLET GT SCH (11:49)
[2022-11-21] MEDS: LEVETIRACETAM SOL (5 ML) 100 MG/ML UDC GT SCH ×2 (11:49→21:28)
[2022-11-21] MEDS: INSULIN REGULAR, HUMAN 100 UNIT/ML 3 ML VIAL SQ PRN ×2 (12:05→17:22)
--- NOTE | 2022-11-21 15:34 | NUR ---
RN NOTE NOTIFIED BROTHER LUIS EDUARDO DELA CRUZ , THAT PATIENT TESTED POSITIVE FOR COVID TODAY AND PATIENT WILL BE DISCHARGED TOMORROW 11/22/22. CHARGE NURSE GABRIEL GARZA
--- NOTE | 2022-11-21 18:59 | NUR ---
HIDE AND SKIN PROCESSING WORKER CLOSING NOTE PATIENT IN BED, OBTUNDED, TRACH CONNECTED TO MV ON CPAP MODE WITH FIO2 40%, PEEP 5, TOLERATING WELL. ISOLATED FOR COVID. IV ACCESS ON LEFT HAND 20G AND LEFT FOREARM 20G, RUNNING 1/2 NS @ 75 ML/HR. G-TUBE FEEDING RUNNING GLUCERNA 1.2 @ 75 ML/HR FOR 20 HOURS, NO RESIDUAL NOTED. DANIEL CATHETER IN PLACE, INTACT AND PATENT, DRAINING CLEAR YELLOW URINE, 1450ML OF URINE REMOVED. SAFETY PRECAUTIONS IN PLACE: BED LOCKED AND IN LOWEST POSITION, HOB ELEVATED, CALL LIGHT WITHIN REACH, SIDE RAILS UP X3 AND PADDED. WILL ENDORSE PT TO PM SHIFT NURSE FOR ANKUR.
[2022-11-21] MEDS: INSULIN GLARGINE, 100 UNIT/ML CARTRIDGE SQ SCH (21:51)
[2022-11-21] MEDS: *INSULIN REGULAR(HUMULIN R)HUM 100 UNIT/ML VIAL SQ PRN (22:08)
[2022-11-22] VITALS: BP 157/89
[2022-11-22 04:00] VITALS: BP 155/81
[2022-11-22] MEDS: MEROPENEM 500 MG in IV NS 0.9% 50 ML IV SCH (04:40)
[2022-11-22] MEDS: IV 1/2NS 1000 ML 1,000 ML IV PRN (04:49)
--- NOTE | 2022-11-22 06:27 | NUR ---
RN NOTES PCR COLLECTED AND SEND @ LAB
[2022-11-22 08:00] VITALS: BP 152/85
--- NOTE | 2022-11-22 08:00 | NUR ---
RN NOTE HELD GLUCERNA G TUBE FEEDING AT THIS TIME TO GIVE 0900 DOSE OF KEPPRA.
[2022-11-22] MEDS: CHLORHEXIDINE GLUCONATE 15 ML UDC MM SCH (09:00)
[2022-11-22] MEDS: PANTOPRAZOLE 40 MG/PACK PACK GT SCH (09:00)
[2022-11-22] MEDS: BLOOD SUGAR DIAGNOSTIC 1 EACH STRIP VI SCH ×2 (09:03→14:41)
[2022-11-22] MEDS: MULTIVITAMINS,THERAGRAN 1 UDTAB TABLET GT SCH (09:03)
[2022-11-22] MEDS: LEVETIRACETAM SOL (5 ML) 100 MG/ML UDC GT SCH (09:03)
[2022-11-22] MEDS: CLONIDINE HCL 0.1 MG TABLET GT PRN ×2 (09:03→14:26)
[2022-11-22] MEDS ORDERED: MEROPENEM 1 G in IV NS 0.9% 100 ML IV SCH (10:00)
--- NOTE | 2022-11-22 10:19 | NUR ---
RN NOTE RESUMED G TUBE FEEDING GLUCERNA AT 75MLS/HR AT THIS TIME.
[2022-11-22 12:00] VITALS: BP 135/93
--- NOTE | 2022-11-22 12:03 | NUR ---
RN NOTE CALLED [facility] GAVE REPORT TO GLORIA DOLL RN . WAITING FOR TRANSPORTATION ESTIMATED TIME OF ARRIVAL FROM STILL PHOTOGRAPHER, MARIELLA AKHTAR. NOTIFIED BROTHER LUIS EDUARDO DELA CRUZ [phone] OF DISCHARGE. NOTIFIED RT SERG.
--- NOTE | 2022-11-22 13:10 | NUR ---
RN NOTE ADMISSIONS RN TIME 1400. NOTIFIED ANKUR DOLL RN AT [facility].
--- NOTE | 2022-11-22 14:20 | NUR ---
RN NOTE PATIENT DISCHARGED AT THIS TIME WITH BELONGINGS FORM AND DISCHARGE PACKET GIVEN TO AMBULANCE CREW. GAVE TOTAL OF 0.3MG CATAPRES GT PRIOR TO LEAVING, ORDER. NOTIFIED CARLIE SINGH, SPOKE TO KSAEY MIRANDA, TO CONTINUE BP MEDS UP ON ARRIVAL. IV ACCESS KEPT INTACT. DANIEL CATHETER INTACT, GTUBE INTACT, REMOVED TELE BOX. CHARGE NURSE AWARE.
[2022-11-22 14:26] VITALS: BP 161/78
[2022-11-22] MEDS ORDERED: CLONIDINE HCL 0.1 MG TABLET PO ONE (14:30)
== END 2022-11-22 14:40 | DRG 720 ==
LOC: ER 19:28 → TELE1 22:16
PROVIDERS: ADMIT Internal Medicine; ATTEND Internal Medicine
PROC: 5A1945Z Respiratory Ventilation, 24-96 Consecutive Hours (ICD-10-PCS; principal; 2022-11-17)
DX: A41.50 Gram-negative sepsis, unspecified (principal); J96.21 Acute and chronic respiratory failure with hypoxia; N17.0 Acute kidney failure with tubular necrosis; R65.21 Severe sepsis with septic shock; G93.41 Metabolic encephalopathy; E43 Unspecified severe protein-calorie malnutrition; U07.1 COVID-19; D68.69 Other thrombophilia; E88.09 Other disorders of plasma-protein metabolism, not elsewhere classified; E87.0 Hyperosmolality and hypernatremia; E11.22 Type 2 diabetes mellitus with diabetic chronic kidney disease; E86.0 Dehydration; G40.909 Epilepsy, unspecified, not intractable, without status epilepticus; D64.9 Anemia, unspecified; E78.5 Hyperlipidemia, unspecified; N18.9 Chronic kidney disease, unspecified; N32.9 Bladder disorder, unspecified; R13.10 Dysphagia, unspecified; R53.2 Functional quadriplegia; Z99.11 Dependence on respirator [ventilator] status; Z79.4 Long term (current) use of insulin; N39.0 Urinary tract infection, site not specified; Z74.09 Other reduced mobility; J98.11 Atelectasis; B96.20 Unspecified Escherichia coli [E. coli] as the cause of diseases classified elsewhere; I12.9 Hypertensive chronic kidney disease with stage 1 through stage 4 chronic kidney disease, or unspecified chronic kidney disease; Z93.1 Gastrostomy status; Z68.27 Body mass index [BMI] 27.0-27.9, adult
CPT/HCPCS: 31720; 36415; 71045-TC; 76770-TC; 80048-TC; 80076-TC; 81001; 82570-TC; 82962-TC; 83605-TC; 83735-TC; 84100-TC; 84300-TC; 84484-TC; 85025-TC; 86225; 86235; 86706; 86803; 87040-TC; 87081-TC; 87086-TC; 94002-TC; 94003-TC; 94760-TC; 94799-TC; 99082-TC; A4223; A6253; C9803; G0378; J0360; J0696; J1815; J1953; J2185; J2543; J3490; J7030; J7060; U0003

== ENCOUNTER 2023-01-06 23:38 | Inpatient (IN) | payer OTHER ==
[~2023-01-06] VITALS: Ht 165.1 cm; Wt 73.9 kg
[~2023-01-06 23:38] MED LIST changes: -AMIK250V13 IJ; +MERO500P IV
[2023-01-07] MEDS ORDERED: IV NS 0.9% 1,000 ML BAG IV ONE
--- NOTE | 2023-01-07 | NUR ---
RT AT BEDSIDE FOR VENT SET UP AND MANAGEMENT
--- NOTE | 2023-01-07 | NUR ---
NORM FROM [facility] FOR ELEVATED HR 150's PER REPORT. PT ARRIVED VERY DIAPHORETIC, TACHYPNEIC. PLACED IN BED, VITALS CHECKED.
--- NOTE | 2023-01-07 00:05 | NUR ---
BLOOD CXs AND BLOOD WORK COLLECTED, SENT TO LAB
--- NOTE | 2023-01-07 00:07 | NUR ---
RT NOTE PT ARRIVED IN RESPIRATORY DISTRESS VIA MECHANICAL VENTILATOR ACCOMPANIED BY PARAMEDICS. PLACED PT ON VENT WITH CURRENT SETTINGS OF AC 18, 450, 100%, +5. MD SCHWARZ AWARE. PORTEX [address]. SUCTION DONE, SMALL THICK YELLOW SECRETIONS NOTED. ALARMS ON AND AUDIBLE. WILL CONTINUE TO MONITOR CLOSELY.
[2023-01-07] MEDS ORDERED: ADENOSINE 6 MG/2 ML VIAL ONE (00:09)
[2023-01-07] MEDS ORDERED: ACETAMINOPHEN 650 MG/SUPP.RECT RC ONE ×2 (00:20→00:30)
--- NOTE | 2023-01-07 00:21 | NUR ---
RECTAL TEMP 104F
--- NOTE | 2023-01-07 00:23 | NUR ---
TYLENOL [place] GIVEN ORDERED
--- NOTE | 2023-01-07 00:25 | NUR ---
PT NOTED W/ DANIEL CATH THAT WAS IN PLACE SPECIALTY THERAPIST. URINE IN CATHETER BAG NOTED TO BE BROWN AND CLOUDY.
--- NOTE | 2023-01-07 00:25 | NUR ---
URINE COLLECTED AND SENT TO LAB
--- NOTE | 2023-01-07 00:26 | NUR ---
COOLING MEASURES INITIATED
--- NOTE | 2023-01-07 00:38 | NUR ---
FURNACE INSTALLER AT PT'S BEDSIDE
--- NOTE | 2023-01-07 00:38 | NUR ---
20GA ESTABLISHED TO RT WRIST
--- NOTE | 2023-01-07 00:39 | NUR ---
20GA ESTABLISHED TO LT HAND
[2023-01-07 00:40] LABS: BASOPHILS % (AUTO) 0.1 % (0.0-2.0); EOSINOPHILS % (AUTO) 0.1 % (0.0-6.0); HEMATOCRIT 38 % (39-51); HEMOGLOBIN 11.8 g/dL (13.5-17.5); LYMPHOCYTES # (AUTO) 2.3 K/uL (0.8-4.8); LYMPHOCYTES % (AUTO) 6.8 % (20.0-44.0); MEAN CORPUSCULAR HGB CONC 31 g/dl (31.0-36.0); MEAN CORPUSCULAR VOLUME 97 fL (80-96); MONOCYTES # (AUTO) 2.6 K/uL (0.1-1.30); MONOCYTES % (AUTO) 7.6 % (2.0-12.0); NEUTROPHILS # (AUTO) 28.8 K/uL (1.8-8.9); NEUTROPHILS % (AUTO) 85.4 % (43.0-81.0); PLATELET COUNT (AUTO) 360 K/uL (150-450); RED BLOOD CELL COUNT(AUTO) 3.89 MIL/uL (4.5-6.0)
[2023-01-07 00:42] LABS: CARBON DIOXIDE 27 mmol/L (21-32); CHLORIDE 101 mmol/L (98-107); CREATININE 2.5 mg/dL (0.6-1.3); GLUCOSE 162 mg/dL (74-106); POTASSIUM 4.7 mmol/L (3.5-5.1); SODIUM SERUM 141 mmol/L (136-145); UREA NITROGEN, BLOOD 61 mg/dL (7-18)
--- NOTE | 2023-01-07 00:44 | NUR ---
COVID ANTIGEN AND MRSA SWAB COLLECTED AND SENT TO LAB.
[2023-01-07 00:48] LABS: WHITE BLOOD COUNT (AUTO) 33.7 K/uL (4.3-11.0)
--- NOTE | 2023-01-07 00:48 | NUR ---
WBC 33.7
--- NOTE | 2023-01-07 00:50 | NUR ---
LACTIC ACID 4
[2023-01-07 00:57] LABS: ALANINE AMINOTRANSFERASE 32 U/L (12-78); ALBUMIN 3.5 g/dL (3.4-5.0); ALKALINE PHOSPHATASE 158 U/L (46-116); ASPARTATE AMINOTRANSFERASE 32 U/L (15-37); BILIRUBIN,DIRECT 0.3 mg/dL (0.0-0.2); BILIRUBIN,TOTAL 1.2 mg/dL (0.2-1.0)
[2023-01-07] MEDS ORDERED: VANCOMYCIN 1 GM in IV D5W 250 ML IV ONE (01:00)
[2023-01-07] MEDS ORDERED: PIPERACILLIN /TAZOBACTAM 3.375 G in IV D5W 50 ML IV ONE (01:00)
[2023-01-07] MEDS ORDERED: PIPERACI/TAZO 3.375GM/D5W 50ML PB IV ONE (01:12)
[2023-01-07 01:39] LABS: BAND % (MANUAL) 12 % (0.0-5.0); LYMPHOCYTES % (MANUAL) 8 % (16-48); MONOCYTES % (MANUAL) 5 % (0-11.0); NEUTROPHILS % (MANUAL) 75 (42-76)
[2023-01-07] MEDS ORDERED: VANCOMYCIN 1 GM /D5W 250 ML PB IV ONE (01:42)
--- NOTE | 2023-01-07 01:48 | NUR ---
ADDITIONAL URINE COLLECTED, SENT TO LAB
--- NOTE | 2023-01-07 01:50 | NUR ---
TEMP RE-CHECK, NOW 102.2F. COOLING MEASURES CONTINUED.
[2023-01-07 02:20] LABS: BILIRUBIN,URINE 1+ (NEGATIVE); COLOR,URINE DARK YELLOW (YELLOW); LEUKOCYTE ESTERASE ,URINE 3+ (NEGATIVE); NITRITE, URINE NEGATIVE (NEGATIVE); PH,URINE 8.5 (5.0-8.0); PROTEIN,URINE 3+ mg/dl (NEGATIVE); UGLUCOSE NEGATIVE (NEGATIVE)
[2023-01-07] MEDS ORDERED: IV NS 0.9% 500 ML BAG IV ONE (02:30)
[2023-01-07 02:33] LABS: BACTERIA,URINE Few /HPF (None Seen); SQUAMOUS EPITHELIAL CELL,UR Rare /HPF (None Seen); WBC,URINE 21-50 /HPF (0-3)
--- NOTE | 2023-01-07 02:34 | NUR ---
PT GOING TO ROOM 103. CALLED FOR REPORT, ASKED TO CALL BACK.
--- NOTE | 2023-01-07 02:50 | NUR ---
REPORT GIVEN TO KASEY ROSENBAUM
--- NOTE | 2023-01-07 03:15 | NUR ---
TEMP NOW 101.2F, JC=[phone], VZ=[phone].
--- NOTE | 2023-01-07 03:20 | NUR ---
CUSTOMER SERVICE SUPERVISOR NOTES: RECEIVED REPORT FROM KOKI. PT TRANSFERRED TO [facility] FROM ER VIA GURNEY, PLACED IN ROOM 103 BED1. PT OBTUNDED. ON TRACH TO VENT SETTINGS: AC-18, TV-450, FIO2 100%, PEER-5. O2 SAT 100%. IV ACCESS ON RAC#20G AND LT HAND #20G INTACT AND PATENT. NO S/S OF INFILTRATIONS. BODY ASSESSMENT DONE. NOTED SKIN REDNESS ON RT GROIN AREA, OLD PRESSURE ULCER IN SACRUM AREA AND REDNESS ON PERIANAL AREA. NO FACIAL GRIMACING NOTED. NO ACUTE DISTRESS. DANIEL CATHETER IN PLACE. DRAINING BY GRAVITY. NOTED BROWN COLOR URINE. NOTED GTUBE IS CLAMPED. ALL SAFETY MEASURES IN PLACE. SIDE RAILS UP X3, BED IN LOWEST POSITION AND LOCKED. PLACE CALL LIGHT WITH REACH. WILL CONTINUE TO MONITOR
[2023-01-07] MEDS ORDERED: ZOLPIDEM TARTRATE 5 MG TABLET PO PRN (03:30)
[2023-01-07] MEDS ORDERED: MAG HYDROX/AL HYDROX/SIMETH 30 ML UDC PO PRN (03:30)
[2023-01-07] MEDS ORDERED: Z GUARD REMEDY 4 OZ OINT TP PRN (03:30)
[2023-01-07] MEDS ORDERED: ONDANSETRON HCL/PF 4 MG/2 ML VIAL IVP PRN (03:30)
[2023-01-07] MEDS ORDERED: MAGNESIUM HYDROXIDE 30 ML UDC PO PRN (03:30)
[2023-01-07] MEDS: IV NS 0.9% 1,000 ML IV PRN ×2 (03:33→14:17)
--- NOTE | 2023-01-07 03:58 | NUR ---
RN NOTES: PT IS HAVING COFFEE GROUND EMESIS. NOTIFIED DR. CHEN. ORDER TO GIVEN PER PRN ORDER, PROTONIX IV BID AND CBC IN THE MORNING. WILL CONTINUE TO MONITOR
[2023-01-07 04:00] VITALS: BP 130/67
[2023-01-07] MEDS: PANTOPRAZOLE 40 MG VIAL IV SCH ×2 (04:26→08:33)
--- NOTE | 2023-01-07 05:20 | NUR ---
MEDICAL APPOINTMENT SCHEDULER NOTES: PT TRANSFERRED TO [facility] FROM ER VIA [facility]URNEY, PLACED IN ROOM 103 BED1. PT OBTUNDED. ON TRACH TO VENT SETTINGS: AC-18, TV-450, FIO2 100%, PEER-5. O2 SAT 100%. IV ACCESS ON RAC#20G AND LT HAND #20G INTACT AND PATENT. NO S/S OF INFILTRATIONS. BODY ASSESSMENT DONE. NOTED SKIN REDNESS ON RT GROIN AREA, OLD PRESSURE ULCER IN SACRUM AREA AND REDNESS ON PERIANAL AREA. NO FACIAL GRIMACING NOTED. NO ACUTE DISTRESS. DANIEL CATHETER IN PLACE. DRAINING BY GRAVITY. NOTED BROWN COLOR URINE. NOTED GTUBE IS CLAMPED. ALL SAFETY MEASURES IN PLACE. SIDE RAILS UP X3, BED IN LOWEST POSITION AND LOCKED. PLACE CALL LIGHT WITH REACH. WILL CONTINUE TO MONITOR Addendum: 01/07/23 at 0627 by FLORINDA ROSENBAUM RN WRONG TIME
--- NOTE | 2023-01-07 06:28 | NUR ---
RN CLOSING NOTES: PT OBTUNDED. ON TRACH TO VENT SETTINGS: AC-18, TV-450, FIO2 100%, PEER-5. IV ACCESS ON RAC#20G AND LT HAND #20G INTACT AND PATENT. NO S/S OF INFILTRATIONS. NS RUNNING AT 125CC/HR. NO NAUSEA/VOMITING NOTED. NO FACIAL GRIMACING NOTED. NO ACUTE DISTRESS. DANIEL CATHETER IN PLACE. DRAINING BY GRAVITY. GTUBE IS CLAMPED. ALL DUE MEDS GIVEN GIVEN ORDERED. ALL SAFETY MEASURES IN PLACE. SIDE RAILS UP X3, BED IN LOWEST POSITION AND LOCKED. PLACE CALL LIGHT WITH REACH. WILL ENDORSE TO MORNING SHIFT NURSE.
[2023-01-07 07:05] LABS: BASOPHILS # (AUTO) 0.1 K/uL (0.0-0.2); BASOPHILS % (AUTO) 0.2 % (0.0-2.0); EOSINOPHILS % (AUTO) 0.1 % (0.0-6.0); HEMATOCRIT 34 % (39-51); HEMOGLOBIN 10.9 g/dL (13.5-17.5); LYMPHOCYTES # (AUTO) 2.6 K/uL (0.8-4.8); LYMPHOCYTES % (AUTO) 7.3 % (20.0-44.0); MEAN CORPUSCULAR HGB CONC 32 g/dl (31.0-36.0); MEAN CORPUSCULAR VOLUME 97 fL (80-96); MONOCYTES # (AUTO) 2.9 K/uL (0.1-1.30); MONOCYTES % (AUTO) 8.2 % (2.0-12.0); NEUTROPHILS # (AUTO) 30.2 K/uL (1.8-8.9); NEUTROPHILS % (AUTO) 84.2 % (43.0-81.0); PLATELET COUNT (AUTO) 270 K/uL (150-450); RED BLOOD CELL COUNT(AUTO) 3.52 MIL/uL (4.5-6.0)
[2023-01-07 07:14] LABS: WHITE BLOOD COUNT (AUTO) 35.9 K/uL (4.3-11.0)
[2023-01-07] MEDS ORDERED: PANTOPRAZOLE 40 MG TABLET.DR PO SCH (07:30)
[2023-01-07] MEDS: ZOSYN IVPB 2.25 G in IV D5W 50ml IV SCH ×3 (07:55→17:14)
[2023-01-07 08:00] VITALS: BP 103/70
--- NOTE | 2023-01-07 08:07 | NUR ---
BLOCK CABLEMAN OPENING NOTES PT OBTUNDED. ON TRACH TO VENT SETTINGS: AC-18, TV-450, FIO2 100%, PEER-5. IV ACCESS ON RAC#20G AND LT HAND #20G INTACT AND PATENT. NO S/S OF INFILTRATIONS. NS RUNNING AT 125CC/HR. NO NAUSEA/VOMITING NOTED. NO FACIAL GRIMACING NOTED. NO ACUTE DISTRESS. ON TELE MONITOR ST HR [address] DRAINING BY GRAVITY. GTUBE IS CLAMPED. ALL SAFETY MEASURES IN PLACE. SIDE RAILS UP X3, BED IN LOWEST POSITION AND LOCKED. PLACE CALL LIGHT WITH REACH. PLAN OF CARE CONTINUE.
[2023-01-07] MEDS ORDERED: HEPARIN SODIUM, PORCINE 5000 UNITS/1 ML VIAL SQ SCH (09:00)
--- NOTE | 2023-01-07 10:00 | NUR ---
INFORMED KORTNEY DNP WITH COFFEE GROUND EMESIS AT 0400H, WITH ORDER TO HOLD HEPARIN NOTED AND CARRIED OUT.
[2023-01-07] MEDS: ACETAMINOPHEN 325 MG TABLET PO PRN ×2 (11:16→17:14)
--- NOTE | 2023-01-07 11:47 | NUR ---
NOTED PATIENT SVT HR 150'S BP 91/70, KORTNEY DNP NOTIFIED, WITH ORDER 1 LITER BOLUS OF NS, NOTED AND CARRIED OUT.
[2023-01-07 12:00] VITALS: BP 80/40
--- NOTE | 2023-01-07 12:00 | NUR ---
NOTED NO URINE OUTPUT FROM DANIEL, TRIED FLUSHING RESISTANCE NOTED, KORTNEY BARBOZA AT THE BEDSIDE, WITH ORDER TO DO BLADDER SCAN, BLADDER NOTED DISTENDED, BLADDER SCAN DONE NOTED 920ML IN THE SCAN, REINSERTED A NEW DANIEL, NOTED 1100ML GROSS HEMATURIA OUTPUT WITH SOME SEDIMENT, KORTNEY BARBOZA MADE AWARE.
[2023-01-07] MEDS ORDERED: IV NS 0.9% 1,000 ML IV ONE ×3 (12:30→15:30)
[2023-01-07 13:28] LABS: BAND % (MANUAL) 3 % (0.0-5.0); BASOPHILS % (MANUAL) 0 % (0.0-2.0); EOSINOPHILS % (MANUAL) 0 % (0-4); LYMPHOCYTES % (MANUAL) 6 % (16-48); MONOCYTES % (MANUAL) 10 % (0-11.0); NEUTROPHILS % (MANUAL) 81 (42-76)
[2023-01-07] MEDS ORDERED: POLYETHYLENE GLYCOL 3350 17 GM POWD.PACK GT PRN (13:30)
[2023-01-07] MEDS ORDERED: GLUCERNA 1.5 1,000 ML BOTTLE GT SCH (13:30)
--- NOTE | 2023-01-07 15:00 | NUR ---
BLOOD PRESSURE NOTED 80/40 MANUALLY HR 134, NOTED SMALL BLOOD CLOTS FROM THE DANIEL, KORTNEY DNP NOTIFIED WITH ORDER 1 LITER BOLUS OF NS AND STAT CBC NOTED AND CARRIED OUT.
--- NOTE | 2023-01-07 15:07 | NUR ---
NOTED SMALL BLOOD CLOTS IN THE URINE, GROSS HEMATURIA STILL NOTED, AND BP 80/40 MANUALLY HR 133, KORTNEY DNP NOTIFIED, WITH ORDER STAT CBC AND 1L OF NS, NOTED AND CARRIED OUT.
[2023-01-07 15:37] LABS: BASOPHILS # (AUTO) 0.1 K/uL (0.0-0.2); BASOPHILS % (AUTO) 0.2 % (0.0-2.0); EOSINOPHILS % (AUTO) 0.1 % (0.0-6.0); HEMATOCRIT 31 % (39-51); HEMOGLOBIN 9.6 g/dL (13.5-17.5); LYMPHOCYTES # (AUTO) 1.2 K/uL (0.8-4.8); LYMPHOCYTES % (AUTO) 4.7 % (20.0-44.0); MEAN CORPUSCULAR HGB CONC 31 g/dl (31.0-36.0); MEAN CORPUSCULAR VOLUME 99 fL (80-96); MONOCYTES % (AUTO) 11.4 % (2.0-12.0); NEUTROPHILS # (AUTO) 21.9 K/uL (1.8-8.9); NEUTROPHILS % (AUTO) 83.6 % (43.0-81.0); PLATELET COUNT (AUTO) 204 K/uL (150-450); WHITE BLOOD COUNT (AUTO) 26.3 K/uL (4.3-11.0)
[2023-01-07 16:00] VITALS: BP_SYST 76; BP_SYST 84; BP_DIAS 49; BP_DIAS 59
[2023-01-07] MEDS: PANTOPRAZOLE 40 MG/PACK PACK GT SCH (17:14)
[2023-01-07] MEDS: CHLORHEXIDINE GLUCONATE 15 ML UDC MM SCH (17:14)
--- NOTE | 2023-01-07 17:57 | NUR ---
NOTED MANUAL BP 85/45 HR 125 S/P 1L NS BOLUS, INFORMED KORTNEY NEWMAN DNP, NO NEW ORDER.
[2023-01-07] MEDS ORDERED: Medication Not On Formulary EA (Ipratropium/Albuterol Sulfate (Combivent Respimat 20-100 IH SCH (18:00)
--- NOTE | 2023-01-07 18:38 | NUR ---
STILL NOTED DANIEL CLOGGED DUE TO SMALL CLOTS, DID HAND IRRIGATION, ABLE TO FLUSH WITH NO RESISTANCE, INFORMED KORTNEY BARBOZA, WITH ORDER TO TELL NIGHT NURSE TO INSERT 3 WAY DANIEL AND CONTINOUS BLADDER IRRIGATION, NOTED AND CARRIED OUT, ENDORSED TO LAURITA PARKS.
--- NOTE | 2023-01-07 18:50 | NUR ---
PROGRAM CONTROL ANALYST CLOSING NOTES PT OBTUNDED. ON TRACH TO VENT SETTINGS: AC-18, TV-450, FIO2 100%, PEER-5. IV ACCESS ON RAC#20G AND LT HAND #20G INTACT AND PATENT. NO S/S OF INFILTRATIONS. NS RUNNING AT 125CC/HR. NO NAUSEA/VOMITING NOTED. NO FACIAL GRIMACING NOTED. NO ACUTE DISTRESS. ON TELE MONITOR SR HR 90'S. DANIEL CATHETER IN PLACE WITH GROSS HEMATURIA OUTPUT NOTED. G TUBE PATENT AND INTACT, WITH GLUCERNA 1.2 @60ML/HR RUNNING ORDERED, TOLERATING WELL, NO N/V/D NOTED. ALL SAFETY MEASURES IN PLACE. SIDE RAILS UP X3, BED IN LOWEST POSITION AND LOCKED. PLACE CALL LIGHT WITH REACH. WILL ENDORSED TO NIGHT NURSE FOR ANKUR.
[2023-01-07] MEDS: GLUCERNA 1.5 1,000 ML BOTTLE GT SCH (18:56)
--- NOTE | 2023-01-07 19:45 | NUR ---
RN OPENING NOTES: RECEIVED PT IN BED, APPEARED OBTUNDED. ON TRACH TO VENT SETTINGS: AC-18, TV-450, FIO2 100%, PEER-5. IV ACCESS ON RAC#20G, RT WRIST#20G AND LT HAND #20G INTACT AND PATENT. NO S/S OF INFILTRATIONS. NS RUNNING AT 125CC/HR. NO NAUSEA/VOMITING NOTED. NO FACIAL GRIMACING NOTED. NO ACUTE DISTRESS. DANIEL CATHETER IN PLACE. DRAINING BY GRAVITY. GTUBE FEEDING TOLERATED WELL. ON GLUCERNA 1.2 AT 60CC/HR. ALL SAFETY MEASURES IN PLACE. SIDE RAILS UP X3, BED IN LOWEST POSITION AND LOCKED. PLACE CALL LIGHT WITH REACH. WILL CONTINUE TO MONITOR
[2023-01-07 20:00] VITALS: BP 108/65
[2023-01-07] MEDS: IPRATROPIUM NEB FS 0.5 MG/2.5 ML AMPUL.NEB NEB SCH (20:31)
[2023-01-07] MEDS: ALBUTEROL FS 2.5 MG/3 ML VIAL.NEB NEB SCH (20:31)
--- NOTE | 2023-01-07 20:45 | NUR ---
RN NOTES: 3 WAY DANIEL CATHETER INSERTED. CONTINUOUS BLADDER IRRIGATION STARTED. WILL CONTINUE TO MONITOR
[2023-01-07] MEDS: ATORVASTATIN 40 MG TABLET GT SCH (21:05)
[2023-01-07] MEDS: LEVETIRACETAM SOL (5 ML) 100 MG/ML UDC GT SCH (21:05)
[2023-01-08] VITALS (17 sets, daily range): BP systolic 94–133; BP diastolic 63–82
[2023-01-08] MEDS: ZOSYN IVPB 2.25 G in IV D5W 50ml IV SCH ×3 (00:04→11:13)
[2023-01-08] MEDS ORDERED: VANCOMYCIN HCL 0.75 GM in IV D5W 250 ML IV SCH (01:00)
[2023-01-08] MEDS: IPRATROPIUM NEB FS 0.5 MG/2.5 ML AMPUL.NEB NEB SCH ×4 (01:12→19:39)
[2023-01-08] MEDS: ALBUTEROL FS 2.5 MG/3 ML VIAL.NEB NEB SCH ×4 (01:12→19:39)
[2023-01-08] MEDS: IV NS 0.9% 1,000 ML IV PRN ×3 (02:15→18:40)
--- NOTE | 2023-01-08 06:53 | NUR ---
RN CLOSING NOTES: PT IN BED, OBTUNDED. ON TRACH TO VENT SETTINGS: AC-18, TV-450, FIO2 100%, PEER-5. O2 SAT 100%. IV ACCESS ON RAC#20G, RT WRIST#20G AND LT HAND #20G INTACT AND PATENT. NO S/S OF INFILTRATIONS. NS RUNNING AT 125CC/HR. NO FACIAL GRIMACING NOTED. NO ACUTE DISTRESS. DANIEL CATHETER IN PLACE. DRAINING BY GRAVITY. STILL NOTED PINKISH COLOR URINE. ON BLADDER IRRIGATION. GTUBE FEEDING TOLERATED WELL. ON GLUCERNA 1.2 AT 60CC/HR. ALL DUE MEDS GIVEN ORDERED. ALL SAFETY MEASURES IN PLACE. SIDE RAILS UP X3, BED IN LOWEST POSITION AND LOCKED. PLACE CALL LIGHT WITH REACH. WILL ENDORSE TO MORNING SHIFT NURSE.
--- NOTE | 2023-01-08 07:00 | NUR ---
RN NOTE RECEIVED PATIENT IN BED RESTING,OBTUNDED ON MECHANICAL VENT SETTING PRESCRIBED, IV ACCESS ON RAC#20G, RT WRIST#20G AND LT HAND #20G INTACT AND PATENT,ON IV HYDRATION NS 125CC/HR,ON G-TUBE FEEDING GLUCERNA 1.2 60CC/HR,PLACEMENT CHECKED IN PLACED NO RESIDUAL NOTED,DANIEL CATH IN PLACE URINE DRAINING,BY GRAVITY,CONTINUE IRRIGATION IN PLACE,SAFETY MEASURE IMPLEMENT,BED IN LOW POSITION AND LOCKED HEAD OF THE BED ELEVATED CONTINUE TO MONITOR.
[2023-01-08 07:25] LABS: BASOPHILS # (AUTO) 0.1 K/uL (0.0-0.2); BASOPHILS % (AUTO) 0.3 % (0.0-2.0); EOSINOPHILS % (AUTO) 0.7 % (0.0-6.0); HEMATOCRIT 24 % (39-51); HEMOGLOBIN 7.5 g/dL (13.5-17.5); LYMPHOCYTES # (AUTO) 2.2 K/uL (0.8-4.8); LYMPHOCYTES % (AUTO) 8.1 % (20.0-44.0); MEAN CORPUSCULAR HGB CONC 32 g/dl (31.0-36.0); MEAN CORPUSCULAR VOLUME 98 fL (80-96); MONOCYTES # (AUTO) 1.9 K/uL (0.1-1.30); MONOCYTES % (AUTO) 6.8 % (2.0-12.0); NEUTROPHILS # (AUTO) 22.9 K/uL (1.8-8.9); NEUTROPHILS % (AUTO) 84.1 % (43.0-81.0); PLATELET COUNT (AUTO) 168 K/uL (150-450); RED BLOOD CELL COUNT(AUTO) 2.42 MIL/uL (4.5-6.0); WHITE BLOOD COUNT (AUTO) 27.3 K/uL (4.3-11.0)
[2023-01-08 07:38] LABS: CALCIUM, SERUM 8.2 mg/dL (8.5-10.1); CREATININE 3.4 mg/dL (0.6-1.3); MAGNESIUM 2.1 mg/dL (1.8-2.4); PHOSPHORUS 4.7 mg/dL (2.5-4.9); POTASSIUM 3.9 mmol/L (3.5-5.1)
[2023-01-08] MEDS: MULTIVIT W/MINERALS 1 TAB TABLET GT SCH (08:07)
[2023-01-08] MEDS: VIT B CMPLX 3/FA/VIT C/BIOTIN 1 TAB TABLET GT SCH (08:07)
[2023-01-08] MEDS: PANTOPRAZOLE 40 MG/PACK PACK GT SCH ×2 (08:07→16:16)
[2023-01-08] MEDS: ZINC SULFATE 220 MG CAPSULE GT SCH (08:07)
[2023-01-08] MEDS: LEVETIRACETAM SOL (5 ML) 100 MG/ML UDC GT SCH ×2 (08:07→20:47)
[2023-01-08] MEDS: CHLORHEXIDINE GLUCONATE 15 ML UDC MM SCH ×2 (08:07→16:16)
[2023-01-08] MEDS ORDERED: ASCORBIC ACID SYRUP 500 MG/5 ML UDC GT SCH (09:00)
[2023-01-08] MEDS: ASCORBIC ACID 500 MG TABLET GT SCH (09:06)
[2023-01-08] MEDS ORDERED: NUT.250L18 GT (12:20)
[2023-01-08] MEDS ORDERED: DOCU50LI GT (12:20)
[2023-01-08] MEDS ORDERED: NA P133E RC (12:20)
[2023-01-08] MEDS ORDERED: EPOE40007 SQ (12:20)
[2023-01-08] MEDS ORDERED: ACET-868 GT (12:20)
[2023-01-08] MEDS ORDERED: CLON0.1T GT (12:20)
[2023-01-08] MEDS ORDERED: BISA10SU11 RC (12:20)
[2023-01-08] MEDS: GLUCERNA 1.5 1,000 ML BOTTLE GT SCH (17:19)
--- NOTE | 2023-01-08 18:26 | NUR ---
RN NOTE PATIENT REMAINS OBTUNDED ON MECHANICAL VENT SETTING PRESCRIBED,ON G-TUBE,ONE UNIT BLOOD GIVEN MD ORDERED,ALL DUE MEDS GIVEN MD ORDERED KEPT CLEAN AND DRY ALL THE TIME,TURNED AND REPOSITIONED EVERY 2 HOURS,DANIEL CATH IN PLACE,URINE CLOUDY AND ORANGE COLOR,KEPT HEAD OF THE BED ELEVATED TURNED AND REPOSITIONED EVERY 2 HOURS ALL NEEDS MET ENDORSE NEXT COMING SHIFT FOR CONTINUATION OF CARE.
--- NOTE | 2023-01-08 20:00 | NUR ---
[facility] RN OPENING NOTES: RECEIVED PT IN BED, OBTUNDED. V/V STABLE AFEBRILE .ON TRACH TO VENT SETTINGS: AC-18, TV-450, FIO2 40, PEER-5. IV ACCESS ON RAC#20G, RT WRIST#20G AND LT HAND #20G INTACT AND PATENT. NO S/S OF INFILTRATIONS. NS RUNNING AT 125CC/HR. NO NAUSEA/VOMITING NOTED. NO FACIAL GRIMACING NOTED. NO ACUTE DISTRESS. DANIEL CATHETER IN PLACE. DRAINING BY GRAVITY. GTUBE FEEDING TOLERATED WELL. ON GLUCERNA 1.2 AT 60CC/HR. ALL SAFETY MEASURES IN PLACE. SIDE RAILS UP X3, BED IN LOWEST POSITION AND LOCKED. PLACE CALL LIGHT WITH REACH. WILL CONTINUE TO MONITOR
[2023-01-08] MEDS: PIPERACILLIN /TAZOBACTAM 2.25 G in IV D5W 50 ML IV SCH (20:47)
[2023-01-08] MEDS: ATORVASTATIN 40 MG TABLET GT SCH (21:46)
[2023-01-09] VITALS: BP 129/79
[2023-01-09] MEDS: IPRATROPIUM NEB FS 0.5 MG/2.5 ML AMPUL.NEB NEB SCH ×4 (01:10→20:22)
[2023-01-09] MEDS: ALBUTEROL FS 2.5 MG/3 ML VIAL.NEB NEB SCH ×4 (01:10→20:22)
[2023-01-09] MEDS: IV NS 0.9% 1,000 ML IV PRN ×2 (03:32→11:51)
[2023-01-09 04:00] VITALS: BP 117/80
[2023-01-09 04:49] LABS: BASOPHILS % (AUTO) 0.1 % (0.0-2.0); EOSINOPHILS % (AUTO) 2.3 % (0.0-6.0); HEMATOCRIT 27 % (39-51); HEMOGLOBIN 8.5 g/dL (13.5-17.5); LYMPHOCYTES # (AUTO) 1.4 K/uL (0.8-4.8); LYMPHOCYTES % (AUTO) 8.4 % (20.0-44.0); MEAN CORPUSCULAR HGB CONC 31 g/dl (31.0-36.0); MEAN CORPUSCULAR VOLUME 97 fL (80-96); MONOCYTES # (AUTO) 1.1 K/uL (0.1-1.30); MONOCYTES % (AUTO) 6.2 % (2.0-12.0); NEUTROPHILS # (AUTO) 14.2 K/uL (1.8-8.9); PLATELET COUNT (AUTO) 149 K/uL (150-450); WHITE BLOOD COUNT (AUTO) 17.1 K/uL (4.3-11.0)
[2023-01-09] MEDS: PIPERACILLIN /TAZOBACTAM 2.25 G in IV D5W 50 ML IV SCH ×3 (05:00→20:50)
[2023-01-09 05:21] LABS: CALCIUM, SERUM 8.2 mg/dL (8.5-10.1); CREATININE 2.1 mg/dL (0.6-1.3); MAGNESIUM 2.1 mg/dL (1.8-2.4); PHOSPHORUS 2.9 mg/dL (2.5-4.9); POTASSIUM 3.4 mmol/L (3.5-5.1)
--- NOTE | 2023-01-09 06:15 | NUR ---
RN CLOSING NOTES: PT IN BED, OBTUNDED. ON TRACH TO VENT SETTINGS: AC-18, TV-450, FIO2 40%, PEEp-5. O2 SAT 96%. IV ACCESS ON RAC#20G, RT WRIST#20G AND LT HAND #20G INTACT AND PATENT. NO S/S OF INFILTRATIONS. NS RUNNING AT 125CC/HR. NO FACIAL GRIMACING NOTED. NO ACUTE DISTRESS. DANIEL CATHETER IN PLACE. DRAINING BY GRAVITY. STILL NOTED PINKISH COLOR URINE. ON BLADDER IRRIGATION. GTUBE FEEDING TOLERATED WELL. ON GLUCERNA 1.2 AT 60CC/HR. ALL DUE MEDS GIVEN ORDERED. ALL SAFETY MEASURES IN PLACE. SIDE RAILS UP X3, BED IN LOWEST POSITION AND LOCKED. PLACE CALL LIGHT WITH REACH. WILL ENDORSE TO MORNING SHIFT NURSE. for continuity of care
[2023-01-09 08:00] VITALS: BP 158/85
[2023-01-09] MEDS: LEVETIRACETAM SOL (5 ML) 100 MG/ML UDC GT SCH ×2 (08:08→20:50)
[2023-01-09] MEDS: ZINC SULFATE 220 MG CAPSULE GT SCH (08:08)
[2023-01-09] MEDS: CHLORHEXIDINE GLUCONATE 15 ML UDC MM SCH ×2 (08:08→16:35)
[2023-01-09] MEDS: PANTOPRAZOLE 40 MG/PACK PACK GT SCH ×2 (08:09→16:35)
[2023-01-09] MEDS: VIT B CMPLX 3/FA/VIT C/BIOTIN 1 TAB TABLET GT SCH (08:09)
[2023-01-09] MEDS: ASCORBIC ACID 500 MG TABLET GT SCH (08:09)
[2023-01-09] MEDS: MULTIVIT W/MINERALS 1 TAB TABLET GT SCH (08:09)
[2023-01-09] MEDS ORDERED: POTASSIUM CL. PREMIX PERIPHER. 50 ML IV SCH (11:00)
[2023-01-09 12:00] VITALS: BP 159/89
[2023-01-09] MEDS ORDERED: VANCOMYCIN 1 GM in IV D5W 250ml IV SCH (13:00)
[2023-01-09] MEDS: GLUCERNA 1.2 1,000 ML BOTTLE NG PRN (14:31)
[2023-01-09] MEDS: AMLODIPINE BESYLATE 10 MG TABLET GT SCH (14:38)
[2023-01-09 16:00] VITALS: BP 170/109
[2023-01-09] MEDS: LABETALOL HCL (100MG) 100 MG TABLET GT SCH (16:35)
--- NOTE | 2023-01-09 18:22 | NUR ---
RN NOTE PATIENT REMAINS OBTUNDED ON MECHANICAL VENT SETTING PRESCRIBED,ON G-TUBE,ONE UNIT BLOOD GIVEN MD ORDERED,ALL DUE MEDS GIVEN MD ORDERED KEPT CLEAN AND DRY ALL THE TIME,TURNED AND REPOSITIONED EVERY 2 HOURS,ON IV HYDRATION NS 75CC/HR DANIEL CATH IN PLACE,URINE CLOUDY AND ORANGE COLOR,KEPT HEAD OF THE BED ELEVATED TURNED AND REPOSITIONED EVERY 2 HOURS,WOUND TREATMENT DONE,SUCTIONED NEEDED, ALL NEEDS MET ENDORSE NEXT COMING SHIFT FOR CONTINUATION OF CARE.
[2023-01-09 20:00] VITALS: BP 156/78
--- NOTE | 2023-01-09 20:00 | NUR ---
[facility] RN OPENING NOTES: RECEIVED PT IN BED, OBTUNDED. V/V STABLE AFEBRILE .ON TRACH TO VENT SETTINGS: AC-18, TV-450, FIO2 40, PEER-5. IV ACCESS ON RAC#20G, RT WRIST#20G AND LT HAND #20G INTACT AND PATENT. NO S/S OF INFILTRATIONS. NS75 CC/HR. NO NAUSEA/VOMITING NOTED. NO FACIAL GRIMACING NOTED. NO ACUTE DISTRESS. DANIEL CATHETER IN PLACE. DRAINING BY GRAVITY. GTUBE FEEDING GLUCERNA 1.2 AT 60CC/HR TOLERATED WELL. ON GLUCERNA 1.2 AT 60CC/HR. ALL SAFETY MEASURES IN PLACE. SIDE RAILS UP X3, BED IN LOWEST POSITION AND LOCKED. PLACE CALL LIGHT WITH REACH. WILL CONTINUE TO MONITOR
[2023-01-09] MEDS: ATORVASTATIN 40 MG TABLET GT SCH (22:53)
[2023-01-10] VITALS: BP 155/113
[2023-01-10] MEDS: ALBUTEROL FS 2.5 MG/3 ML VIAL.NEB NEB SCH ×4 (01:24→20:08)
[2023-01-10] MEDS: IPRATROPIUM NEB FS 0.5 MG/2.5 ML AMPUL.NEB NEB SCH ×4 (01:24→20:08)
[2023-01-10] MEDS: IV NS 0.9% 1,000 ML IV PRN ×2 (03:17→18:08)
[2023-01-10 04:00] VITALS: BP 155/85
[2023-01-10] MEDS: PIPERACILLIN /TAZOBACTAM 2.25 G in IV D5W 50 ML IV SCH ×3 (04:08→21:31)
[2023-01-10 06:23] LABS: BASOPHILS % (AUTO) 0.3 % (0.0-2.0); EOSINOPHILS % (AUTO) 4.4 % (0.0-6.0); HEMATOCRIT 28 % (39-51); HEMOGLOBIN 8.9 g/dL (13.5-17.5); LYMPHOCYTES # (AUTO) 1.9 K/uL (0.8-4.8); LYMPHOCYTES % (AUTO) 15.3 % (20.0-44.0); MEAN CORPUSCULAR HGB CONC 32 g/dl (31.0-36.0); MEAN CORPUSCULAR VOLUME 97 fL (80-96); MONOCYTES % (AUTO) 8.1 % (2.0-12.0); NEUTROPHILS # (AUTO) 8.8 K/uL (1.8-8.9); NEUTROPHILS % (AUTO) 71.9 % (43.0-81.0); PLATELET COUNT (AUTO) 136 K/uL (150-450); RED BLOOD CELL COUNT(AUTO) 2.88 MIL/uL (4.5-6.0); WHITE BLOOD COUNT (AUTO) 12.2 K/uL (4.3-11.0)
--- NOTE | 2023-01-10 06:28 | NUR ---
RN CLOSING NOTES: PT IN BED, OBTUNDED. ON TRACH TO VENT SETTINGS: AC-18, TV-450, FIO2 40%, PEEp-5. O2 SAT 96%. IV ACCESS ON RAC#20G, RT WRIST#20G AND LT HAND #20G INTACT AND PATENT. NO S/S OF INFILTRATIONS. NS RUNNING AT 75CC/HR. NO FACIAL GRIMACING NOTED. NO ACUTE DISTRESS. DANIEL CATHETER IN PLACE. DRAINING BY GRAVITY. STILL NOTED PINKISH COLOR URINE. GTUBE FEEDING TOLERATED WELL. ON GLUCERNA 1.2 AT 60CC/HR. ALL DUE MEDS GIVEN ORDERED. ALL SAFETY MEASURES IN PLACE. SIDE RAILS UP X3, BED IN LOWEST POSITION AND LOCKED. PLACE CALL LIGHT WITH REACH. WILL ENDORSE TO MORNING SHIFT NURSE. FOR CONTINUITY OF CARE.
[2023-01-10 06:57] LABS: CALCIUM, SERUM 8.6 mg/dL (8.5-10.1); CREATININE 1.5 mg/dL (0.6-1.3); MAGNESIUM 1.8 mg/dL (1.8-2.4); PHOSPHORUS 2.1 mg/dL (2.5-4.9); POTASSIUM 3.7 mmol/L (3.5-5.1)
--- NOTE | 2023-01-10 07:30 | NUR ---
[facility] RN AM NOTES: RECEIVED PT IN BED, OBTUNDED. WITH PORTEX 8 TRACH TO MECHANICAL VENT SETTING FOLLOW: AC 18 TV 450 FIO2 40% PEEP 5. REPSITION EVEN AND UNLABORED O2 SAT 100%. SR HR 83 ON MONITOR. NO FACIAL GRIMACING, IV ACCESS RAC G20, R WRIST G 20 BOTH FLUSHES WELL, LEFT HAND WITH NS AT 75 ML/HR INFUSING WELL. ALL SITES CLEAR. DANIEL CATHETER IN PLACE. DRAINING BY GRAVITY. BLOOD TINGE URINE. GTUBE CHECKED FOR PLACEMENT. 5 ML RESIDUAL. ON GLUCERNA 1.2 AT 60CC/HR. WELL TOLERATED. SEE NURSING FLOWSHEET FOR SKIN ISSUES. ALL SAFETY MEASURES IN PLACE. SIDE RAILS UP X3, BED IN LOWEST POSITION AND LOCKED. PLACE CALL LIGHT WITH REACH. WILL CONTINUE TO MONITOR
[2023-01-10 08:00] VITALS: BP 151/77
[2023-01-10] MEDS: ZINC SULFATE 220 MG CAPSULE GT SCH (08:43)
[2023-01-10] MEDS: VIT B CMPLX 3/FA/VIT C/BIOTIN 1 TAB TABLET GT SCH (08:43)
[2023-01-10] MEDS: MULTIVIT W/MINERALS 1 TAB TABLET GT SCH (08:43)
[2023-01-10] MEDS: LEVETIRACETAM SOL (5 ML) 100 MG/ML UDC GT SCH ×2 (08:43→21:31)
[2023-01-10] MEDS: PANTOPRAZOLE 40 MG/PACK PACK GT SCH ×2 (08:43→16:08)
[2023-01-10] MEDS: ASCORBIC ACID 500 MG TABLET GT SCH (08:43)
[2023-01-10] MEDS: AMLODIPINE BESYLATE 10 MG TABLET GT SCH (08:43)
[2023-01-10] MEDS: CHLORHEXIDINE GLUCONATE 15 ML UDC MM SCH ×2 (08:43→16:09)
[2023-01-10] MEDS: LABETALOL HCL (100MG) 100 MG TABLET GT SCH ×2 (08:44→16:09)
[2023-01-10] MEDS: GLUCERNA 1.2 1,000 ML BOTTLE NG PRN (09:00)
--- NOTE | 2023-01-10 09:30 | NUR ---
RN NOTES DUE MEDS GIVEN
[2023-01-10 12:00] VITALS: BP 149/88
--- NOTE | 2023-01-10 12:15 | NUR ---
RN NOTES KORTNEY NEWMAN AT BEDSIDE, NOTIFIED OF BLOOD TINGED URINE. NO NEW ORDERS
--- NOTE | 2023-01-10 13:10 | NUR ---
RN NOTES PATIENT STABLE . ENDORSED TO CRISTIAN FOR ANKUR.
--- NOTE | 2023-01-10 13:10 | NUR ---
RN NOTES RECEIVED PT ON BED , CONTINUE TO MONITOR .
[2023-01-10] MEDS: VANCOMYCIN 1 GM in IV D5W 250ml IV SCH (13:30)
[2023-01-10] MEDS ORDERED: NEUTRA PHOS 1 POWD.PACKET NG ONE (15:30)
[2023-01-10 16:00] VITALS: BP 155/88
--- NOTE | 2023-01-10 18:13 | NUR ---
RN NOTES NO SIGNIFICANT CHANGES NOTED ON THIS SHIFT, WILL ENDORSE TO ART THERAPY CERTIFIED SUPERVISOR NURSE FOR CONTINUITY OF CARE .
[2023-01-10 20:00] VITALS: BP 147/93
[2023-01-10] MEDS: ATORVASTATIN 40 MG TABLET GT SCH (21:31)
--- NOTE | 2023-01-10 23:23 | NUR ---
[facility] RN OPENING NOTES: RECEIVED PT IN BED, OBTUNDED. V/S STABLE AFEBRILE .ON TRACH TO VENT SETTINGS: PORTEX #8 AC-18, TV-450, FIO2 40, PEER-5. IV ACCESS ON RAC#20G, RT WRIST#20G AND LT HAND #20G INTACT AND PATENT. NO S/S OF INFILTRATIONS. NS75 CC/HR. NO NAUSEA/VOMITING NOTED. NO FACIAL GRIMACING NOTED. NO ACUTE DISTRESS.3 WAY DANIEL CATHETER IN PLACE. DRAINING BY GRAVITY. GTUBE FEEDING GLUCERNA 1.2 AT 60CC/HR TOLERATED WELL.. ALL SAFETY MEASURES IN PLACE. SIDE RAILS UP X3, BED IN LOWEST POSITION AND LOCKED. PLACE CALL LIGHT WITH REACH. WILL CONTINUE TO MONITOR Addendum: 01/10/23 at 2326 by GINETTE IRENE RN OPENING NOTES IS 2000HRS NOT 2326
[2023-01-11] VITALS (7 sets, daily range): BP systolic 138–160; BP diastolic 85–99
[2023-01-11] MEDS: ALBUTEROL FS 2.5 MG/3 ML VIAL.NEB NEB SCH ×4 (01:22→20:04)
[2023-01-11] MEDS: IPRATROPIUM NEB FS 0.5 MG/2.5 ML AMPUL.NEB NEB SCH ×4 (01:22→20:04)
[2023-01-11] MEDS: GLUCERNA 1.2 1,000 ML BOTTLE NG PRN ×2 (04:12→15:56)
[2023-01-11] MEDS: PIPERACILLIN /TAZOBACTAM 2.25 G in IV D5W 50 ML IV SCH ×3 (04:12→20:16)
[2023-01-11 08:12] LABS: BASOPHILS % (AUTO) 0.2 % (0.0-2.0); EOSINOPHILS % (AUTO) 7.1 % (0.0-6.0); HEMATOCRIT 30 % (39-51); HEMOGLOBIN 9.6 g/dL (13.5-17.5); LYMPHOCYTES # (AUTO) 1.5 K/uL (0.8-4.8); MEAN CORPUSCULAR HGB CONC 32 g/dl (31.0-36.0); MEAN CORPUSCULAR VOLUME 95 fL (80-96); MONOCYTES # (AUTO) 0.6 K/uL (0.1-1.30); MONOCYTES % (AUTO) 9.1 % (2.0-12.0); NEUTROPHILS # (AUTO) 4.3 K/uL (1.8-8.9); NEUTROPHILS % (AUTO) 61.6 % (43.0-81.0); PLATELET COUNT (AUTO) 151 K/uL (150-450); RED BLOOD CELL COUNT(AUTO) 3.12 MIL/uL (4.5-6.0); WHITE BLOOD COUNT (AUTO) 6.9 K/uL (4.3-11.0)
[2023-01-11] MEDS: CHLORHEXIDINE GLUCONATE 15 ML UDC MM SCH ×2 (08:31→16:43)
[2023-01-11] MEDS: LEVETIRACETAM SOL (5 ML) 100 MG/ML UDC GT SCH ×2 (08:31→21:25)
[2023-01-11] MEDS: MULTIVIT W/MINERALS 1 TAB TABLET GT SCH (08:32)
[2023-01-11] MEDS: LABETALOL HCL (100MG) 100 MG TABLET GT SCH ×2 (08:32→16:44)
[2023-01-11] MEDS: PANTOPRAZOLE 40 MG/PACK PACK GT SCH ×2 (08:32→16:44)
[2023-01-11] MEDS: VIT B CMPLX 3/FA/VIT C/BIOTIN 1 TAB TABLET GT SCH (08:32)
[2023-01-11] MEDS: AMLODIPINE BESYLATE 10 MG TABLET GT SCH (08:32)
[2023-01-11] MEDS: ZINC SULFATE 220 MG CAPSULE GT SCH (08:32)
[2023-01-11] MEDS: ASCORBIC ACID 500 MG TABLET GT SCH (08:32)
[2023-01-11 08:35] LABS: CALCIUM, SERUM 8.7 mg/dL (8.5-10.1); CREATININE 1.4 mg/dL (0.6-1.3); MAGNESIUM 1.7 mg/dL (1.8-2.4); PHOSPHORUS 3.1 mg/dL (2.5-4.9); POTASSIUM 3.9 mmol/L (3.5-5.1)
[2023-01-11] MEDS: IV NS 0.9% 1,000 ML IV PRN (09:43)
[2023-01-11] MEDS: Magnesium 1GM/D5W 100ML PREMIX 100 ML IV SCH ×2 (10:28→11:28)
[2023-01-11] MEDS: VANCOMYCIN 1 GM in IV D5W 250ml IV SCH (14:19)
[2023-01-11] MEDS: ATORVASTATIN 40 MG TABLET GT SCH (21:25)
[2023-01-12] VITALS: BP 150/96
[2023-01-12] MEDS: ALBUTEROL FS 2.5 MG/3 ML VIAL.NEB NEB SCH ×4 (01:16→20:28)
[2023-01-12] MEDS: IPRATROPIUM NEB FS 0.5 MG/2.5 ML AMPUL.NEB NEB SCH ×4 (01:16→20:27)
[2023-01-12] MEDS: PIPERACILLIN /TAZOBACTAM 2.25 G in IV D5W 50 ML IV SCH (03:56)
[2023-01-12] MEDS: GLUCERNA 1.2 1,000 ML BOTTLE NG PRN (03:59)
[2023-01-12] MEDS: IV NS 0.9% 1,000 ML IV PRN (03:59)
[2023-01-12 04:00] VITALS: BP 140/94
--- NOTE | 2023-01-12 04:40 | NUR ---
[facility]/TRUCK DRIVER INSTRUCTOR PT HAS POOR IV ACCESS, PT IS CURRENTLY ON ZOSYN AND VANCO. CALLED FOR MIDLINE. PT CURRENTLY HAS X1 IV ACCESS. WILL PASS ON TO DAY SHIFT PT REQUIRES A MIDLINE.
[2023-01-12 06:59] LABS: BASOPHILS % (AUTO) 0.4 % (0.0-2.0); EOSINOPHILS % (AUTO) 3.6 % (0.0-6.0); HEMATOCRIT 29 % (39-51); HEMOGLOBIN 9.6 g/dL (13.5-17.5); LYMPHOCYTES # (AUTO) 2.3 K/uL (0.8-4.8); LYMPHOCYTES % (AUTO) 21.2 % (20.0-44.0); MEAN CORPUSCULAR HGB CONC 33 g/dl (31.0-36.0); MEAN CORPUSCULAR VOLUME 94 fL (80-96); MONOCYTES # (AUTO) 1.1 K/uL (0.1-1.30); NEUTROPHILS % (AUTO) 64.8 % (43.0-81.0); PLATELET COUNT (AUTO) 161 K/uL (150-450); RED BLOOD CELL COUNT(AUTO) 3.05 MIL/uL (4.5-6.0); WHITE BLOOD COUNT (AUTO) 10.9 K/uL (4.3-11.0)
--- NOTE | 2023-01-12 07:00 | NUR ---
RN NOTES RECEIVED PT IN BED, VENT/TRACH DEPENDENT , RESPONDS TO PAINFUL STIMULI, PORTEX #8 AC-18, TV-450, FIO2 40, PEER-5. IV SITES CDI, NO S/S OF INFILTRATIONS. NS AT 75 CC/HR RUNNING, NO NAUSEA/VOMITING NOTED. NO FACIAL GRIMACING NOTED. NO ACUTE DISTRESS.3 WAY DANIEL CATHETER IN PLACE. DRAINING BLOODY TINGED URINE BY GRAVITY. G-TUBE FEEDING GLUCERNA 1.2 AT 60CC/HR TOLERATED WELL.. ALL SAFETY MEASURES IN PLACE. SIDE RAILS UP X3, BED IN LOWEST POSITION AND LOCKED. PLACE CALL LIGHT WITH REACH. WILL CONTINUE TO MONITOR
[2023-01-12 07:15] LABS: CALCIUM, SERUM 9.1 mg/dL (8.5-10.1); CREATININE 1.3 mg/dL (0.6-1.3); PHOSPHORUS 3.5 mg/dL (2.5-4.9); POTASSIUM 4.2 mmol/L (3.5-5.1)
[2023-01-12 08:00] VITALS: BP 144/89
[2023-01-12] MEDS: ASCORBIC ACID 500 MG TABLET GT SCH (08:26)
[2023-01-12] MEDS: ZINC SULFATE 220 MG CAPSULE GT SCH (08:26)
[2023-01-12] MEDS: MULTIVIT W/MINERALS 1 TAB TABLET GT SCH (08:26)
[2023-01-12] MEDS: LEVETIRACETAM SOL (5 ML) 100 MG/ML UDC GT SCH ×2 (08:26→21:03)
[2023-01-12] MEDS: PANTOPRAZOLE 40 MG/PACK PACK GT SCH ×2 (08:26→16:21)
[2023-01-12] MEDS: CHLORHEXIDINE GLUCONATE 15 ML UDC MM SCH ×2 (08:27→16:22)
[2023-01-12] MEDS: LABETALOL HCL (100MG) 100 MG TABLET GT SCH ×2 (08:27→16:22)
[2023-01-12] MEDS: AMLODIPINE BESYLATE 10 MG TABLET GT SCH (08:27)
[2023-01-12] MEDS: VIT B CMPLX 3/FA/VIT C/BIOTIN 1 TAB TABLET GT SCH (08:27)
[2023-01-12 12:00] VITALS: BP 147/87
--- NOTE | 2023-01-12 12:00 | NUR ---
RN NOTES TRACH CARE AND ORAL CARE DONE, CONTINUE TO MONITOR
[2023-01-12] MEDS: ZOSYN IVPB 3.375 G in IV D5W 50ml IV SCH ×2 (12:01→17:05)
[2023-01-12] MEDS: VANCOMYCIN 1 GM in IV D5W 250ml IV SCH (14:09)
[2023-01-12 16:00] VITALS: BP 137/80
--- NOTE | 2023-01-12 18:16 | NUR ---
RN NOTES NO SIGNIFICANT CHANGES NOTED ON THIS SHIFT, WILL ENDORSE TO ELECTRIC TRIPPER MACHINE OPERATOR NURSE FOR CONTINUITY OF CARE .
--- NOTE | 2023-01-12 19:05 | NUR ---
RN OPENING NOTES RECEIVED PATIENT ON BED, OBTUNDED . ON ON TRACH, WITH VENT SETTING AC- 18, TIDAL VOLUME- 450, FIO2- 40%, PEEP- 5. NO SOB NOTED. AFEBRILE, NO S/S OF DISTRESS NOTED. NOTED WITH LEFT HAND #20, RAC #20 FLUSHED WITH NS, NO S/S OF INFILTRATION NOTED. G TUBE PATENT INTACT, VERIFIED PLACEMENT BY AUSCULTATION, NO RESIDUAL NOTED UPON ASPIRATION, RUNNING WITH GLUCERNA 1.2 @ 60ML/HR. HEAD OF BED KEPT ELEVATED. DANIEL CATHETER PATENT INTACT, DRAINING WITH YELLOWISH URINE OUTPUT VIA GRAVITY. ALL SAFETY PRECAUTION PROVIDED. BED IN LOWEST POSITION, LOCKED. CALL LIGHT WITH IN REACH.
[2023-01-12 20:00] VITALS: BP 147/86
[2023-01-12] MEDS: ATORVASTATIN 40 MG TABLET GT SCH (21:03)
[2023-01-13] VITALS: BP 142/66
[2023-01-13] MEDS: ZOSYN IVPB 3.375 G in IV D5W 50ml IV SCH ×2 (01:49→06:29)
[2023-01-13] MEDS: ALBUTEROL FS 2.5 MG/3 ML VIAL.NEB NEB SCH ×4 (02:14→20:07)
[2023-01-13] MEDS: IPRATROPIUM NEB FS 0.5 MG/2.5 ML AMPUL.NEB NEB SCH ×4 (02:14→20:06)
[2023-01-13] MEDS: GLUCERNA 1.2 1,000 ML BOTTLE NG PRN ×2 (02:41→21:21)
[2023-01-13 04:00] VITALS: BP 152/90
[2023-01-13 06:41] LABS: BASOPHILS % (AUTO) 0.3 % (0.0-2.0); EOSINOPHILS % (AUTO) 3.7 % (0.0-6.0); HEMATOCRIT 28 % (39-51); HEMOGLOBIN 9.2 g/dL (13.5-17.5); LYMPHOCYTES # (AUTO) 2.4 K/uL (0.8-4.8); LYMPHOCYTES % (AUTO) 19.7 % (20.0-44.0); MEAN CORPUSCULAR HGB CONC 33 g/dl (31.0-36.0); MEAN CORPUSCULAR VOLUME 93 fL (80-96); MONOCYTES # (AUTO) 1.2 K/uL (0.1-1.30); MONOCYTES % (AUTO) 9.7 % (2.0-12.0); NEUTROPHILS # (AUTO) 8.2 K/uL (1.8-8.9); NEUTROPHILS % (AUTO) 66.6 % (43.0-81.0); PLATELET COUNT (AUTO) 181 K/uL (150-450); WHITE BLOOD COUNT (AUTO) 12.3 K/uL (4.3-11.0)
[2023-01-13 07:01] LABS: CALCIUM, SERUM 8.9 mg/dL (8.5-10.1); CREATININE 1.4 mg/dL (0.6-1.3); MAGNESIUM 1.8 mg/dL (1.8-2.4); POTASSIUM 4.2 mmol/L (3.5-5.1)
[2023-01-13 08:00] VITALS: BP 129/84
[2023-01-13] MEDS: VIT B CMPLX 3/FA/VIT C/BIOTIN 1 TAB TABLET GT SCH (08:21)
[2023-01-13] MEDS: ASCORBIC ACID 500 MG TABLET GT SCH (08:21)
[2023-01-13] MEDS: CHLORHEXIDINE GLUCONATE 15 ML UDC MM SCH ×2 (08:21→16:14)
[2023-01-13] MEDS: PANTOPRAZOLE 40 MG/PACK PACK GT SCH ×2 (08:21→16:14)
[2023-01-13] MEDS: AMLODIPINE BESYLATE 10 MG TABLET GT SCH (08:22)
[2023-01-13] MEDS: ZINC SULFATE 220 MG CAPSULE GT SCH (08:22)
[2023-01-13] MEDS: MULTIVIT W/MINERALS 1 TAB TABLET GT SCH (08:22)
[2023-01-13] MEDS: LABETALOL HCL (100MG) 100 MG TABLET GT SCH ×2 (08:22→16:14)
[2023-01-13] MEDS: LEVETIRACETAM SOL (5 ML) 100 MG/ML UDC GT SCH ×2 (08:22→21:13)
[2023-01-13 12:00] VITALS: BP 137/77
--- NOTE | 2023-01-13 12:00 | NUR ---
[facility] NOTES TRACH CARE AND ORAL CARE DONE, TF AT 20CC/HR RUNNING , NO RESIDUAL NOTED, CONTINUE TO MONITOR , Addendum: 01/13/23 at 1817 by SAMUEL GRANT RN CORRECTION TF AT 60CC/HR RUNNING
[2023-01-13] MEDS ORDERED: PIPERACILLIN /TAZOBACTAM 3.375 G in IV D5W 100 ML IV SCH (13:00)
[2023-01-13] MEDS: VANCOMYCIN 1 GM in IV D5W 250ml IV SCH (14:04)
[2023-01-13 16:00] VITALS: BP 146/80
[2023-01-13] MEDS: MEROPENEM 1 G in IV NS 0.9% 100 ML IV SCH (16:12)
--- NOTE | 2023-01-13 18:12 | NUR ---
RN NOTES NO SIGNIFICANT CHANGES NOTED ON THIS SHIFT, WILL ENDORSE TO HAND MOLD MAKER NURSE FOR CONTINUITY OF CARE .
[2023-01-13 20:00] VITALS: BP 136/78
[2023-01-13] MEDS: ATORVASTATIN 40 MG TABLET GT SCH (21:13)
[2023-01-13] MEDS: ACETAMINOPHEN 325 MG TABLET PO PRN (21:13)
--- NOTE | 2023-01-13 21:13 | NUR ---
RN NOTE PT NOTED TO HAVE LOW-GRADE TEMP OF 99.0. PT ADMINISTERED TYLENOL 650 MG WITH ADDITIONAL COOLING MEASURES IN PLACE. WILL RE-ASSESS TEMP
--- NOTE | 2023-01-13 22:54 | NUR ---
COLLEGE OR UNIVERSITY FACULTY MEMBER OPENING NOTE PT RECEIVED IN BED, OPENS EYES, NON-VERBAL. PT WITH PROTEX SIZE #8, AC 18, TV 450, FIO2 40%, PEEP 5 WITH CURRENT O2SAT OF 100%; NOTED TO HAVE COUGH; NO OTHER S/S OF RESP DISTRESS, NO SOB, NON-LABORED AND EQUAL BREATHING. PT ATTACHED TO EXTERNAL MONITOR, SR WITH HR OF 79. GTD C/D/I WITH GLUCERNA RUNNING AT 60 ML/HR. DANIEL INTACT AND PATENT, DRAINING CLOUDY AND YELLOW URINE; NO SIGNS OF HEMATURIA NOTED. IV ACCESS ON LEFT HAND AND RAC 20G INTACT AND PATENT, FLUSHES EASILY WITH NO RESISTANCE; NS TKO INFUSING. BED IN LOWEST POSITION, CALL LIGHT WITHIN REACH, SIDE RAILS UP X3. WILL CONTINUE TO MONITOR THROUGHOUT THE NIGHT.
[2023-01-14] VITALS: BP 141/72
--- NOTE | 2023-01-14 00:10 | NUR ---
RN NOTE TEMP RECHECKED WITH RESULT OF 98.6
[2023-01-14] MEDS: MEROPENEM 1 G in IV NS 0.9% 100 ML IV SCH ×3 (01:08→16:23)
[2023-01-14] MEDS: IPRATROPIUM NEB FS 0.5 MG/2.5 ML AMPUL.NEB NEB SCH ×4 (02:06→19:59)
[2023-01-14] MEDS: ALBUTEROL FS 2.5 MG/3 ML VIAL.NEB NEB SCH ×4 (02:07→19:59)
[2023-01-14 04:00] VITALS: BP 113/67
[2023-01-14 06:20] LABS: ALBUMIN 2.5 g/dL (3.4-5.0); BILIRUBIN,TOTAL 0.5 mg/dL (0.2-1.0); CALCIUM, SERUM 9.2 mg/dL (8.5-10.1); CREATININE 1.5 mg/dL (0.6-1.3); POTASSIUM 4.2 mmol/L (3.5-5.1); TOTAL PROTEIN, SERUM 6.7 g/dL (6.4-8.2)
--- NOTE | 2023-01-14 06:40 | NUR ---
DIRECTOR GLOBAL CLOSING NOTE PT REMAINS IN BED, OBTUNDED, OPENS EYES; NO CHANGES TO NEURO STATUS. CONTINUES TO BE ON SAME VENT SETTINGS, TOLERATING WELL WITH O2SAT STABLE AT 100% THROUGHOUT THE NIGHT; NOTED TO HAVE PRODUCTIVE COUGH WITH MINIMAL SECRETIONS; NO OTHER S/S OF RESP DISTRESS. ATTACHED TO EXTERNAL MONITOR, SR WITH HR RANGING FROM 77-83. DANIEL INTACT AND PATENT; LATER DURING NIGHT, NOTED TO HAVE SOME HEMATURIA WITH URINE REDDISH-ORANGE YELLOW IN COLOR. GT GLUCERNA AT 60 ML/HR; TOLERATED WELL WITH NO RESIDUALS. LEFT HAND 20G AND RAC 20G INTACT AND PATENT, NS TKO INFUSING. ALL DUE MEDS ADMINISTERED DURING THE NIGHT. WOUND CLEANSED AND NEW DRESSING APPLIED. BED IN LOWEST POSITION, CALL LIGHT WITHIN REACH, SIDE RAILS UP X3. WILL ENDORSE TO DAYSHIFT NURSE TO CONTINUE CARE.
--- NOTE | 2023-01-14 07:30 | NUR ---
CONCRETE BLOCK MAKER AM NOTES: RECEIVED PT IN BED, OBTUNDED. WITH PORTEX 8 TRACH TO MECHANICAL VENT SETTING FOLLOW: AC 18 TV 450 FIO2 40% PEEP 5. REPOSITION EVEN AND UNLABORED O2 SAT 100%. SR HR 86 ON MONITOR. NO FACIAL GRIMACING, IV ACCESS RAC G20, LEFT HAND BOTH SITES FLUSHES WELL, BOTH SITES CLEAR. DANIEL CATHETER IN PLACE. DRAINING BY GRAVITY. YELLOW COLORED URINE. SLIGHTLY TURBID, GTUBE CHECKED FOR PLACEMENT. 5 ML RESIDUAL. ON GLUCERNA 1.2 AT 60CC/HR. WELL TOLERATED. SEE NURSING FLOWSHEET FOR SKIN ISSUES. ALL SAFETY MEASURES IN PLACE. SIDE RAILS UP X3, BED IN LOWEST POSITION AND LOCKED. PLACE CALL LIGHT WITH REACH. WILL CONTINUE TO MONITOR
[2023-01-14 08:00] VITALS: BP 135/81
[2023-01-14] MEDS: PANTOPRAZOLE 40 MG/PACK PACK GT SCH ×2 (08:14→16:23)
[2023-01-14] MEDS: CHLORHEXIDINE GLUCONATE 15 ML UDC MM SCH ×2 (08:14→16:23)
[2023-01-14] MEDS: MULTIVIT W/MINERALS 1 TAB TABLET GT SCH (08:15)
[2023-01-14] MEDS: ZINC SULFATE 220 MG CAPSULE GT SCH (08:15)
[2023-01-14] MEDS: VIT B CMPLX 3/FA/VIT C/BIOTIN 1 TAB TABLET GT SCH (08:15)
[2023-01-14] MEDS: ASCORBIC ACID 500 MG TABLET GT SCH (08:15)
[2023-01-14] MEDS: LEVETIRACETAM SOL (5 ML) 100 MG/ML UDC GT SCH ×2 (08:15→21:59)
[2023-01-14] MEDS: LABETALOL HCL (100MG) 100 MG TABLET GT SCH ×2 (08:18→16:23)
[2023-01-14] MEDS: AMLODIPINE BESYLATE 10 MG TABLET GT SCH (08:18)
--- NOTE | 2023-01-14 09:30 | NUR ---
RN NOTES DUE MEDS GIVEN
[2023-01-14 12:00] VITALS: BP 102/71
[2023-01-14] MEDS: GLUCERNA 1.2 1,000 ML BOTTLE NG PRN (12:35)
[2023-01-14 16:00] VITALS: BP 130/79
--- NOTE | 2023-01-14 19:10 | NUR ---
PROJECTION ENGINEER CLOSING NOTES: PT IN BED, OBTUNDED. WITH PORTEX 8 TRACH TO MECHANICAL VENT SETTING FOLLOW: AC 18 TV 450 FIO2 40% PEEP 5. REPOSITION EVEN AND UNLABORED O2 SAT 100%. SR HR 86 ON MONITOR. NO FACIAL GRIMACING, IV ACCESS RAC G20, LEFT HAND BOTH SITES FLUSHES WELL, BOTH SITES CLEAR. DANIEL CATHETER IN PLACE. DRAINING BY GRAVITY. NOW BLOOD TINGED URINE. SLIGHTLY TURBID, GTUBE CHECKED FOR PLACEMENT. 5 ML RESIDUAL. ON GLUCERNA 1.2 AT 60CC/HR. WELL TOLERATED. ALL SAFETY MEASURES IN PLACE. SIDE RAILS UP X3, BED IN LOWEST POSITION AND LOCKED. PLACE CALL LIGHT WITH REACH. PM CARE AND WOUND TERATMENT DONE EARLIER. ALL NEEDS MET AT THIS TIME. ENDORSED TO NEXT SHIFT FOR ANKUR
--- NOTE | 2023-01-14 19:39 | NUR ---
RN OPENING NOTES: RECEIVED PT IN BED, OBTUNDED. ON TRACH TO MECHANICAL VENT SETTING WITH PORTEX 8: AC 18 TV 450 FIO2 40% PEEP 5 AND PT TOLERATED WELL. BREATHING EVEN AND UNLABORED. TELE MONITORING SHOWS SR. IV ACCESS RAC# 20G AND LEFT HAND#20G INTACT AND PATENT. NO S/S OG INFILTRATIONS. NO FACILA GRIMACING NOTED. NO ACUTE DISTRESS. DANIEL CATHETER IN PLACE. DRAINING BY GRAVITY. NOTED SLIGHT BLOOD TINGED COLORED URINE. GTUBE FEEDING WELL TOLERATED. ON GLUCERNA 1.2 AT 60CC/HR. ALL SAFETY MEASURES IN PLACE. SIDE RAILS UP X3, BED IN LOWEST POSITION AND LOCKED. PLACE CALL LIGHT WITH REACH. WILL CONTINUE TO MONITOR
[2023-01-14 20:00] VITALS: BP 127/76
[2023-01-14] MEDS: ATORVASTATIN 40 MG TABLET GT SCH (21:59)
[2023-01-15] VITALS: BP 132/83
[2023-01-15] MEDS: MEROPENEM 1 G in IV NS 0.9% 100 ML IV SCH ×3 (00:46→16:13)
[2023-01-15] MEDS: IPRATROPIUM NEB FS 0.5 MG/2.5 ML AMPUL.NEB NEB SCH ×4 (01:24→19:20)
[2023-01-15] MEDS: ALBUTEROL FS 2.5 MG/3 ML VIAL.NEB NEB SCH ×4 (01:24→19:20)
[2023-01-15 04:00] VITALS: BP 135/83
--- NOTE | 2023-01-15 06:31 | NUR ---
RN CLOSING NOTES: PT IN BED, OBTUNDED. ON TRACH TO MECHANICAL VENT SETTING WITH PORTEX 8: AC 18 TV 450 FIO2 40% PEEP 5 AND PT TOLERATED WELL. O2 SAT 99%. BREATHING EVEN AND UNLABORED. IV ACCESS RAC# 20G AND LEFT HAND#20G INTACT AND PATENT. NO S/S OG INFILTRATIONS. NO FACILA GRIMACING NOTED. NO ACUTE DISTRESS. DANIEL CATHETER IN PLACE. DRAINING BY GRAVITY. NOTED SLIGHT BLOOD TINGED COLORED URINE. GTUBE FEEDING WELL TOLERATED. ON GLUCERNA 1.2 AT 60CC/HR. NO RESIDUAL NOTED. ALL DUE MEDS GIVEN ORDERED. ALL SAFETY MEASURES IN PLACE. SIDE RAILS UP X3, BED IN LOWEST POSITION AND LOCKED. PLACE CALL LIGHT WITH REACH. WILL ENDORSE TO MORNING SHIFT NURSE.
[2023-01-15 07:12] LABS: CALCIUM, SERUM 9.1 mg/dL (8.5-10.1); CREATININE 1.4 mg/dL (0.6-1.3); POTASSIUM 4.4 mmol/L (3.5-5.1)
[2023-01-15] MEDS: GLUCERNA 1.2 1,000 ML BOTTLE NG PRN (07:19)
[2023-01-15 07:22] LABS: BASOPHILS % (AUTO) 0.4 % (0.0-2.0); EOSINOPHILS % (AUTO) 5.1 % (0.0-6.0); HEMATOCRIT 27 % (39-51); HEMOGLOBIN 9.1 g/dL (13.5-17.5); LYMPHOCYTES # (AUTO) 2.3 K/uL (0.8-4.8); LYMPHOCYTES % (AUTO) 24.2 % (20.0-44.0); MEAN CORPUSCULAR HGB CONC 33 g/dl (31.0-36.0); MEAN CORPUSCULAR VOLUME 94 fL (80-96); MONOCYTES # (AUTO) 1.4 K/uL (0.1-1.30); MONOCYTES % (AUTO) 15.3 % (2.0-12.0); NEUTROPHILS # (AUTO) 5.2 K/uL (1.8-8.9); PLATELET COUNT (AUTO) 227 K/uL (150-450); WHITE BLOOD COUNT (AUTO) 9.5 K/uL (4.3-11.0)
--- NOTE | 2023-01-15 07:30 | NUR ---
PHYSICIAN INTERNIST AM NOTES: RECEIVED PT IN BED, OBTUNDED. WITH PORTEX 8 TRACH TO MECHANICAL VENT SETTING FOLLOW: AC 18 TV 450 FIO2 40% PEEP 5. REPOSITION EVEN AND UNLABORED O2 SAT 100%. SR HR 86 ON MONITOR. NO FACIAL GRIMACING, IV ACCESS RAC G20, LEFT HAND 20 G. BOTH SITES FLUSHES WELL, BOTH SITES CLEAR. DANIEL CATHETER IN PLACE. DRAINING BY GRAVITY. SLIGHTLY BLOOD TINGED URINE. SLIGHTLY TURBID, GTUBE CHECKED FOR PLACEMENT. 5 ML RESIDUAL. ON GLUCERNA 1.2 AT 60CC/HR. WELL TOLERATED. SEE NURSING FLOWSHEET FOR SKIN ISSUES. ALL SAFETY MEASURES IN PLACE. SIDE RAILS UP X3, BED IN LOWEST POSITION AND LOCKED. PLACE CALL LIGHT WITH REACH. WILL CONTINUE TO MONITOR
[2023-01-15 08:00] VITALS: BP 151/83
[2023-01-15] MEDS: CHLORHEXIDINE GLUCONATE 15 ML UDC MM SCH ×2 (08:23→16:14)
[2023-01-15] MEDS: LEVETIRACETAM SOL (5 ML) 100 MG/ML UDC GT SCH (08:23)
[2023-01-15] MEDS: LABETALOL HCL (100MG) 100 MG TABLET GT SCH ×2 (08:24→16:14)
[2023-01-15] MEDS: MULTIVIT W/MINERALS 1 TAB TABLET GT SCH (08:24)
[2023-01-15] MEDS: ZINC SULFATE 220 MG CAPSULE GT SCH (08:24)
[2023-01-15] MEDS: VIT B CMPLX 3/FA/VIT C/BIOTIN 1 TAB TABLET GT SCH (08:24)
[2023-01-15] MEDS: PANTOPRAZOLE 40 MG/PACK PACK GT SCH ×2 (08:24→16:14)
[2023-01-15] MEDS: ASCORBIC ACID 500 MG TABLET GT SCH (08:24)
[2023-01-15] MEDS: AMLODIPINE BESYLATE 10 MG TABLET GT SCH (08:25)
--- NOTE | 2023-01-15 09:30 | NUR ---
RN NOTES DUE MEDS GIVEN
[2023-01-15] MEDS ORDERED: MERO1VIA23 IV (10:20)
[2023-01-15 12:00] VITALS: BP 131/71
--- NOTE | 2023-01-15 15:38 | NUR ---
RN NOTES FOR MIDLINE PLACEMENT PRIOR TO DC. KARTHIK HOLLOWAY DNP TO PLACE MIDLINE
--- NOTE | 2023-01-15 15:49 | NUR ---
RN NOTES REPORT GIVEN TO LUCIANA PARKS AT FACILITY. AMBULANCE KITCHEN STEWARD 1800.
[2023-01-15 16:00] VITALS: BP 139/84
--- NOTE | 2023-01-15 17:48 | NUR ---
RN NOTES PATIENT TO BE DISCHARGED TO [facility] TODAY PER MD IN STABLE CONDITION. PROVIDED DC INSTRUCTIONS, HEALTH TEACHINGS AND MED RECON LIST. RIGHT AC G20 , RT HAND G20 LEFT HAND G20 IV ACCESS REMOVED. ALL CATH TIP COMPLETE, APPLIED PRESSURE AND DRESSINGS . NO BLEEDING. NEW RIGHT UPPER ARM MIDLINE G18 PLACED BY DR. KARTHIK HOLLOWAY, DRESSING CDI. DANIEL CATH IN PLACE. TOTAL OUTPUT OF 900 ML. NO BELONGINGS. PHOTOS OF SKIN ISSUES TAKEN AND PLACED INSIDE CHART. PM CARE AND PRESCRIBED WOUND TREATMENT DONE EARLIER. ALL PAPERWORKS SIGNED, TO BE TRANSPORTED TO FACILITY VIA AMBULANCE. REPORT GIVEN TO FACILITY EARLIER. PATIENT WILL GO TO ROOM 202 B.
[2023-01-15 20:00] VITALS: BP 135/79
--- NOTE | 2023-01-15 20:30 | NUR ---
RN NOTES DISCHARGE TO [facility]. [facility] TRANSFER TO [facility] BY 2 EMT AND RT AT BEDSIDE. ALL BELONGING GIVEN. LEFT THE FACILITY PATIENT IN STABLE CONDITION VS WITHIN NORMAL LIMIT.
== END 2023-01-15 21:03 | DRG 720 ==
LOC: ER 23:39 → TELE1 01-07 02:27 → TELE-TD 01-08 03:21 → TELE1 01-12 15:59
PROVIDERS: ADMIT Nurse Practitioner Acute Care; ATTEND Nurse Practitioner Acute Care
PROC: 5A1955Z Respiratory Ventilation, Greater than 96 Consecutive Hours (ICD-10-PCS; principal; 2023-01-07)
PROC: 30233N1 Transfusion of Nonautologous Red Blood Cells into Peripheral Vein, Percutaneous Approach (ICD-10-PCS; 2023-01-08)
PROC: 05H933Z Insertion of Infusion Device into Right Brachial Vein, Percutaneous Approach (ICD-10-PCS; 2023-01-15)
DX: A41.1 Sepsis due to other specified staphylococcus (principal); N17.0 Acute kidney failure with tubular necrosis; J96.20 Acute and chronic respiratory failure, unspecified whether with hypoxia or hypercapnia; G82.50 Quadriplegia, unspecified; E43 Unspecified severe protein-calorie malnutrition; G93.41 Metabolic encephalopathy; D68.59 Other primary thrombophilia; D63.8 Anemia in other chronic diseases classified elsewhere; E88.09 Other disorders of plasma-protein metabolism, not elsewhere classified; Z99.11 Dependence on respirator [ventilator] status; I13.10 Hypertensive heart and chronic kidney disease without heart failure, with stage 1 through stage 4 chronic kidney disease, or unspecified chronic kidney disease; N39.0 Urinary tract infection, site not specified; N18.9 Chronic kidney disease, unspecified; N13.6 Pyonephrosis; B96.4 Proteus (mirabilis) (morganii) as the cause of diseases classified elsewhere; I69.291 Dysphagia following other nontraumatic intracranial hemorrhage; R13.10 Dysphagia, unspecified; S30.0XXA Contusion of lower back and pelvis, initial encounter; Z16.24 Resistance to multiple antibiotics; X58.XXXA Exposure to other specified factors, initial encounter; Y93.9 Activity, unspecified; I69.265 Other paralytic syndrome following other nontraumatic intracranial hemorrhage, bilateral; Y92.129 Unspecified place in nursing home as the place of occurrence of the external cause; Z93.1 Gastrostomy status; E11.22 Type 2 diabetes mellitus with diabetic chronic kidney disease; Z20.822 Contact with and (suspected) exposure to COVID-19; E78.5 Hyperlipidemia, unspecified; E87.0 Hyperosmolality and hypernatremia; E87.6 Hypokalemia; Z79.4 Long term (current) use of insulin; Z79.899 Other long term (current) drug therapy
CPT/HCPCS: 31720; 36415; 71045-TC; 76770-TC; 80048-TC; 80053-TC; 80076-TC; 80202-TC; 81001; 83605-TC; 83735-TC; 83880; 84100-TC; 84484-TC; 85025-TC; 85730-TC; 86850-TC; 87040-TC; 87081-TC; 87086-TC; 94002-TC; 94003-TC; 94760-TC; 94762-TC; 94799-TC; A4217; A4223; A6253; A6403; C9113; C9803; G0378; J0153; J1644; J1953; J2185; J2405; J2543; J3370; J3475; J3480; J7030; J7040; J7042; J7050; J7060; P9016